=== PATIENT | female | born 1940 | race Caucasian/White ===

== ENCOUNTER 2016-05-01 20:53 | Observation (INO) ==
[2016-05-01 22:23] LABS: Basophils % 0.5 %; Eosinophils # 0.1 K/mcL (0.0-0.6); Eosinophils % 1.8 %; Hematocrit 36.4 % (35.3-44.9); Hemoglobin 12.1 g/dL (11.5-15.4); Immature Granulocytes % 0.5 % (0-4); Lymphocytes # 1.9 K/mcL (0.6-4.6); Lymphocytes % 29.1 %; Mean Corpuscular HGB Conc 33.2 g/dL (31.6-35.5); Mean Corpuscular Hemoglobin 28.5 pg (28.0-33.3); Mean Corpuscular Volume 85.8 fL (83.0-100.0); Mean Platelet Volume 9.3 fL (9.4-12.4); Monocytes # 0.5 K/mcL (0.0-1.3); Monocytes % 7.1 %; Neutrophils # 4.1 K/mcL (1.6-8.9); Platelet Count 169 K/mcL (140-400); Red Blood Count 4.24 M/mcL (3.82-4.97); Red Cell Distribution Width 13.2 % (11.5-14.5)
[2016-05-01 22:28] LABS: Prothrombin Time 10.9 Seconds (9.4-12.1)
[2016-05-01 22:30] LABS: Activated Partial Thrombo Time 33.9 Seconds (26.0-36.0)
[2016-05-01 22:35] LABS: BUN/Creatinine Ratio 13 (6-26); Blood Urea Nitrogen 11 mg/dL (7-20); Calcium 9.2 mg/dL (8.6-10.8); Carbon Dioxide 26 mEq/L (19-29); Chloride 103 mEq/L (98-109); Glucose 110 mg/dL (70-99); Osmolality,Calculated 290 (280-300); Potassium 3.4 mEq/L (3.5-4.5); Sodium 140 mEq/L (136-145); eGFR For African Americans > 60 (> 60); eGFR For Non-African Americans > 60 (> 60)
[2016-05-01] MEDS ORDERED: Nitroglycerin 1 INCH/GM PACKET TP ONE (22:39)
[2016-05-01] MEDS ORDERED: Aspirin 81 MG TAB.CHEW PO STA (22:39)
--- NOTE | 2016-05-02 00:34 | Emergency Department Note ---
Disposition Clinical Impression: Palpitations Disposition: Admitted As Inpatient Condition: Good Referrals: Roopa Lambert CNP [Primary Care Provider] - Forms: ED Satisfaction Letter Chest Pain HPI - General Chief Complaint: ED Chest Pain Stated Complaint: Chest Pain, DAVEY Source: patient Limitations: no limitations Vital Signs Reviewed: Yes Nursing Notes Reviewed: Yes - History of Present Illness HPI Narrative: 75-year-old female with a history of paroxysmal A. fib who presents with concern for chest palpitations for approximately 1 day. Symptoms are not exertionally mediated. She has no current chest pain. Of note in triage was found have a abnormal EKG with mild ST segment depression in the V leads. She denies nausea, vomiting, dyspnea, admits to baseline leg swelling. Severity scale (1-10): 0 - Related Data Home Medications Medication Instructions Recorded Confirmed Aspirin [Adult Low Dose Aspirin EC] 81 mg PO DAILY 06/03/15 02/04/16 Cholecalciferol (Vitamin D3) 1,000 unit PO DAILY 06/03/15 02/04/16 [Vitamin D3] Fluticasone Propionate Nasal 1 spray NS BID 06/03/15 02/04/16 [Flonase] Furosemide [Lasix] 20 mg PO DAILY 06/03/15 02/04/16 Losartan Potassium [Cozaar] 50 mg PO DAILY 06/03/15 02/04/16 Omeprazole [PriLOSEC] 20 mg PO DAILY 06/03/15 02/04/16 Vitamin E Acid Succinate [Vitamin 100 unit PO DAILY 06/03/15 02/04/16 E] Loratadine [Claritin] 10 mg PO DAILY 01/04/16 02/04/16 Fish Oil/Dha/Epa [Fish Oil 1,200 1,200 mg PO BID 01/05/16 02/04/16 mg Fish Oil] EPINEPHrine [Epipen] 0.3 mg IM ONCE PRN 02/04/16 02/04/16 Allergies Allergy/AdvReac Type Severity Reaction Status Date / Time acetaminophen [From Vicodin] Allergy See Verified 05/01/16 21:00 Comments Amoxicillin Allergy Abdominal Verified 05/01/16 21:00 Pain Benzonatate Allergy See Verified 05/01/16 21:00 [From Tessalon Perlkitty] Comments ciprofloxacin Allergy See Verified 05/01/16 21:00 Comments hydrocodone [From Vicodin] Allergy See Verified 05/01/16 21:00 Comments mometasone furoate Allergy Nose Bleed Verified 05/01/16 21:00 [From Nasonex] nitrofurantoin Allergy See Verified 05/01/16 21:00 Comments Oxycodone [From Percocet] Allergy See Verified 05/01/16 21:00 Comments Penicillins Allergy See Verified 05/01/16 21:00 Comments sulfamethoxazole Allergy See Verified 05/01/16 21:00 [From Bactrim] Comments trimethoprim [From Bactrim] Allergy See Verified 05/01/16 21:00 Comments cetirizine AdvReac Insomnia Verified 05/01/16 21:00 dextromethorphan AdvReac Rash Verified 05/01/16 21:00 [From Capmist DM] doxycycline AdvReac Redness of Verified 05/01/16 21:00 Skin guaifenesin [From Capmist DM] AdvReac Rash Verified 05/01/16 21:00 meloxicam AdvReac Muscle Pain Verified 05/01/16 21:00 pravastatin AdvReac See Verified 05/01/16 21:00 Comments pseudoephedrine AdvReac Rash Verified 05/01/16 21:00 [From Capmist DM] All systems ED: reviewed and negative except as stated. Chest Pain PMH - Past Medical History Medical history: Reports: arthritis, GERD, glaucoma, hyperlipidemia, hypertension, osteoporosis, renal disease, other Surgical history: Reports: appendectomy, cataract, hysterectomy Psychiatric history: Reports: no psych history FINANCIAL PLANNER history: Reports: no FINANCIAL PLANNER history - Social History Smoking Status: Former smoker Alcohol use: Reports: none Drug use: Reports: none Physical Exam - General Limitations: no limitations General appearance: alert - Eye Eye exam: Present: normal appearance - ENT ENT exam: normal exam - Neck Neck exam: Present: normal inspection, full ROM - Chest Chest inspection: Present: normal inspection - Respiratory Respiratory exam: Present: normal lung sounds bilaterally - Cardiovascular Cardiovascular exam: Present: regular rate, normal rhythm - Abdominal Exam Abdominal exam: Present: soft, Non-Tender - Extremities Exam Extremities exam: Present: normal inspection, full ROM - Expanded Lower Extremity Exam Hip/Pelvis exam: Present: normal inspection, full ROM Knee exam: Present: normal inspection, full ROM Ankle exam: Present: normal inspection, full ROM Foot/toe exam: Present: normal inspection, full ROM Neurovascular/Tendon exam: Present: normal capillary refill, pulse deficit - Back Exam Back exam: Present: normal inspection, full ROM - Neurological Exam Neurological exam: Present: alert, oriented X3, CN II-XII intact - Psychiatric Psychiatric exam: Present: normal affect, normal mood - Skin Skin exam: Present: warm, dry Course Vital Signs Temperature 97.5 F L 05/01/16 21:00 Pulse Rate 74 05/01/16 21:00 Respiratory Rate 20 05/01/16 21:00 Blood Pressure 138/77 05/01/16 21:00 O2 Sat by Pulse Oximetry 99 05/01/16 21:00 Temperature 97.5 F L 05/01/16 21:00 Pulse Rate 63 05/01/16 23:57 Respiratory Rate 16 05/01/16 22:29 Blood Pressure 125/85 05/01/16 23:57 O2 Sat by Pulse Oximetry 99 05/01/16 23:57 Oxygen Delivery Oxygen Delivery Room Air Chest Pain - MDM Narrative Medical decision making narrative: Female patient with possible paroxysmal A. fib which could explain why she is having this intermittent complaint of palpitations. Cannot rule out ACS though. EKG shows ST segment changes in the anterolateral leads. I have repeated the EKG twice. Her EKG shows sinus rhythm with no significant interval derangement. There is ST segment depression in leads V4 and V5. This is consistent upon repeat EKG. There is no ST segment elevation. Aspirin was administered. Nitroglycerin paste was applied. She was found to be mild hypokalemic and this was replaced with 60 mEq of potassium at the request of the hospitalist team. She is currently symptom free. Chest x-ray shows no acute findings. We will proceed with admission for ACS rule out in the setting of possible paroxysmal A. fib. She does follow with cardiology team. - Lab Data Result diagrams: 05/01/16 22:16 05/01/16 22:16 Lab Results 05/01/16 05/01/16 05/01/16 Range/Units 22:16 22:16 22:16 WBC 6.7 (4.3-11.1) K/mcL RBC 4.24 (3.82-4.97) M/mcL Hgb 12.1 (11.5-15.4) g/dL Hct 36.4 (35.3-44.9) % MCV 85.8 (83.0-100.0) fL MCH 28.5 (28.0-33.3) pg MCHC 33.2 (31.6-35.5) g/dL RDW 13.2 (11.5-14.5) % Plt Count 169 (140-400) K/mcL MPV 9.3 L (9.4-12.4) fL Immature Gran % 0.5 (0-4) % Seg Neutrophils % 61.0 % Lymphocytes % 29.1 % Monocytes % 7.1 % Eosinophils % 1.8 % Basophils % 0.5 % Neutrophils # 4.1 (1.6-8.9) K/mcL Lymphocytes # 1.9 (0.6-4.6) K/mcL Monocytes # 0.5 (0.0-1.3) K/mcL Eosinophils # 0.1 (0.0-0.6) K/mcL Basophils # 0.0 (0.0-0.2) K/mcL Immature Plt Fraction 3.0 (1.1-6.1) % PT 10.9 (9.4-12.1) Seconds INR 1.0 APTT 33.9 (26.0-36.0) Seconds Sodium 140 (136-145) mEq/L Potassium 3.4 L (3.5-4.5) mEq/L Chloride 103 (98-109) mEq/L Carbon Dioxide 26 (19-29) mEq/L BUN 11 (7-20) mg/dL Creatinine 0.85 (0.57-1.11) mg/dL Est GFR ( Amer) > 60 (> 60) Est GFR (Non-Af Amer) > 60 (> 60) BUN/Creatinine Ratio 13 (6-26) Glucose 110 H (70-99) mg/dL Calculated Osmolality 290 (280-300) Calcium 9.2 (8.6-10.8) mg/dL Troponin I (0-0.03) ng/mL B-Natriuretic Peptide (0-100) pg/mL 05/01/16 05/01/16 Range/Units 22:16 22:16 WBC (4.3-11.1) K/mcL RBC (3.82-4.97) M/mcL Hgb (11.5-15.4) g/dL Hct (35.3-44.9) % MCV (83.0-100.0) fL MCH (28.0-33.3) pg MCHC (31.6-35.5) g/dL RDW (11.5-14.5) % Plt Count (140-400) K/mcL MPV (9.4-12.4) fL Immature Gran % (0-4) % Seg Neutrophils % % Lymphocytes % % Monocytes % % Eosinophils % % Basophils % % Neutrophils # (1.6-8.9) K/mcL Lymphocytes # (0.6-4.6) K/mcL Monocytes # (0.0-1.3) K/mcL Eosinophils # (0.0-0.6) K/mcL Basophils # (0.0-0.2) K/mcL Immature Plt Fraction (1.1-6.1) % PT (9.4-12.1) Seconds INR APTT (26.0-36.0) Seconds Sodium (136-145) mEq/L Potassium (3.5-4.5) mEq/L Chloride (98-109) mEq/L Carbon Dioxide (19-29) mEq/L BUN (7-20) mg/dL Creatinine (0.57-1.11) mg/dL Est GFR ( Amer) (> 60) Est GFR (Non-Af Amer) (> 60) BUN/Creatinine Ratio (6-26) Glucose (70-99) mg/dL Calculated Osmolality (280-300) Calcium (8.6-10.8) mg/dL Troponin I 0.00 (0-0.03) ng/mL B-Natriuretic Peptide 23 (0-100) pg/mL
[2016-05-02] MEDS ORDERED: Naloxone 0.4 MG/ML INJ IVP PRN (04:33)
--- NOTE | 2016-05-02 05:00 | Internal Med History&Physical ---
<Beatriz Roberts - Last Filed: 05/02/16 05:29> Date of Encounter: 05/02/16 Time of Encounter: 04:43 Assessment and Plan (1) Palpitations Current visit: Yes Status: Acute telemetry trend troponins check TSH consult cardiology (2) History of atrial fibrillation Current visit: Yes Status: Acute Internal Medicine - H&P: HPI Chief complaint: heart racing, CP Admitted From: Emergency Dept Plans for Post Hospital Care: Home History of present illness: Ms. Keyes is a 75 year old female diagnosed with paroxysmal atrial fibrillation in January during a hospitalization for cholecystectomy. She had one episode of asymptomatic atrial fibrillation and self-converted during that hospitalization. Sinc that hospitalization, she has had extensive cardiology work-up including stress test, echo, and holter monitor. Stress EKG negative for ischemia, images demonstrated partially reversible inferior and inferoseptal perfusion defect. Blanket Winder Operator suspects artifact but cannot rule out ischemia. Echo showed EF 60%, normal systolic function, and mild diastolic dysfunction of the LV. Holter monitor showed baseline NSR, rare PACs and PVCs, several episodes of nonsustained SVT, no ventricular arrhythmias, no pauses; during pt reported symptoms rhythm is normal sinus. She has an appointment in the future to discuss her stress test results with her PCP, but has been having multiple episodes of sweating, heart racing, and chest pain for the past week and was advised by her PCP to go to the ER if she had another episode. This evening she was sitting on the couch when she had an episode of feeling like her heart was racing and chest pain. She came to the ER to get checked out. Past Med Surg Social Fam HX - Past Medical History Medical history: arthritis, GERD, glaucoma, hyperlipidemia, hypertension, osteoporosis, renal disease, other (hx of CKD, OA) Psychiatric history: no psych history - Past Surgical History Surgical History: appendectomy, cataract, cholecystectomy, hysterectomy - Social History Smoking Status: Former smoker Smokeless Tobacco Status: No Alcohol use: none Drug use: none - Family History Brother Hx Family Cardiac Disorders: Yes Sister Living Status: Still Living Hx Family Cardiac Disorders: Yes Hx Family Respiratory Disorders: Yes (COPD) Hx Family Cancer: No Hx Family GI Disorders: Yes (GERD) Hx Family Endocrine Disorder: Yes Hx Family Neuromuscular Disorders: No Hx Family Neurologic Disorders: No Hx Family HEENT Disorders: No Hx Family Autoimmune Disorders: No Mother Living Status: Hx Family Cardiac Disorders: No Hx Family Respiratory Disorders: No Hx Family Cancer: No Hx Family GI Disorders: No Hx Family Endocrine Disorder: No Hx Family Neuromuscular Disorders: No Hx Family Neurologic Disorders: No Hx Family HEENT Disorders: No Hx Family Autoimmune Disorders: No Father Living Status: Hx Family Cardiac Disorders: No Hx Family Respiratory Disorders: No Hx Family Cancer: No Hx Family GI Disorders: No Hx Family Endocrine Disorder: No Hx Family Neuromuscular Disorders: No Hx Family Neurologic Disorders: No Hx Family HEENT Disorders: No Hx Family Autoimmune Disorders: No Internal Medicine - H&P: Meds Aspirin [Adult Low Dose Aspirin EC] 81 mg PO DAILY 06/03/15 [History] Cholecalciferol (Vitamin D3) [Vitamin D3] 1,000 unit PO DAILY 06/03/15 [History] Fluticasone Propionate Nasal [Flonase] 1 spray NS BID 06/03/15 [History] Furosemide [Lasix] 20 mg PO DAILY 06/03/15 [History] Losartan Potassium [Cozaar] 50 mg PO DAILY 06/03/15 [History] Omeprazole [PriLOSEC] 20 mg PO DAILY 06/03/15 [History] Loratadine [Claritin] 10 mg PO DAILY 01/04/16 [History] Fish Oil/Dha/Epa [Fish Oil 1,200 mg Fish Oil] 1,200 mg PO BID 01/05/16 [History] EPINEPHrine [Epipen] 0.3 mg IM ONCE PRN 02/04/16 [History] Albuterol Sulfate [Ventolin Hfa] 2 puff IH Q4H PRN 05/02/16 [History] Ascorbic Acid [Vitamin C] 500 mg PO DAILY 05/02/16 [History] Vitamin E 100 unit PO DAILY 05/02/16 [History] Allergies acetaminophen [From Vicodin] Allergy (Verified 05/01/16 21:00) See Comments Amoxicillin Allergy (Verified 05/01/16 21:00) Abdominal Pain Benzonatate [From Tessalon Perles] Allergy (Verified 05/01/16 21:00) See Comments ciprofloxacin Allergy (Verified 05/01/16 21:00) See Comments hydrocodone [From Vicodin] Allergy (Verified 05/01/16 21:00) See Comments mometasone furoate [From Nasonex] Allergy (Verified 05/01/16 21:00) Nose Bleed nitrofurantoin Allergy (Verified 05/01/16 21:00) See Comments Oxycodone [From Percocet] Allergy (Verified 05/01/16 21:00) See Comments Penicillins Allergy (Verified 05/01/16 21:00) See Comments sulfamethoxazole [From Bactrim] Allergy (Verified 05/01/16 21:00) See Comments trimethoprim [From Bactrim] Allergy (Verified 05/01/16 21:00) See Comments cetirizine Adverse Reaction (Verified 05/01/16 21:00) Insomnia dextromethorphan [From Capmist DM] Adverse Reaction (Verified 05/01/16 21:00) Rash doxycycline Adverse Reaction (Verified 05/01/16 21:00) Redness of Skin guaifenesin [From Capmist DM] Adverse Reaction (Verified 05/01/16 21:00) Rash meloxicam Adverse Reaction (Verified 05/01/16 21:00) Muscle Pain pravastatin Adverse Reaction (Verified 05/01/16 21:00) See Comments pseudoephedrine [From Capmist DM] Adverse Reaction (Verified 05/01/16 21:00) Rash All Systems PM: A 10-system review of systems was performed and is negative for pertinent findings except as documented above in the HPI. - Constitutional Constitutional: excessive sweating, no chills, no fever(s), no night sweats - EENT Eyes: no change in vision, no discharge, no pain, no photophobia Ears: no ear discharge, no ear pain, no tinnitus Nose, mouth and throat: no dysphagia, no nasal discharge, no neck pain, no sore throat - Cardiovascular Cardiovascular ROS IM: chest pain, irregular heart rhythm, palpitations, no diaphoresis, no dyspnea, no lightheadedness, no syncope - Respiratory Respiratory: no cough, no dyspnea, no wheezing, no excessive phlegm production - Gastrointestinal Gastrointestinal: nausea, no abdominal pain, no change in bowel habits, no diarrhea, no hematemesis, no hematochezia, no melena, no vomiting - Genitourinary Genitourinary: no change in urinary stream, no dysuria, no flank pain, no hematuria, no urinary frequency, no urinary urgency - Musculoskeletal Musculoskeletal ROS IM: no arthralgias, no muscle cramps, no muscle weakness, no myalgias, no numbness, no tingling - Integumentary Integumentary IM: no rash, no unusual bruising - Neurological Neurological ROS: dizziness, no confusion, no convulsions, no focal weakness, no numbness, no tingling, no tremor(s) - Hematologic/Lymphatic Hematologic/Lymphatic: no easy bruising - Constitutional Vitals: Temp Pulse Resp BP Pulse Ox 97.8 F 65 16 129/75 98 05/02/16 01:57 05/02/16 01:57 05/02/16 01:57 05/02/16 01:57 05/02/16 01:57 General appearance: Present: A&O X 3, no acute distress, answers questions appropriately - Head Head exam: Present: atraumatic, normocephalic - Eye Eye exam: Present: PERRL, conjuntiva pink, sclera anicteric Pupils: Present: PERRL - Neck Neck exam general surgery: Present: supple, trachea midline. Absent: lymphadenopathy - Respiratory Respiratory exam: Present: CTAB. Absent: accessory muscle use, rales, rhonchi, wheezes - Cardiovascular Cardiovascular exam: Present: RRR, +S1, +S2. Absent: diastolic murmur, gallop, rubs, systolic murmur - GI/Abdominal GI/Abdominal exam: Present: normal bowel sounds, soft, no peritoneal signs. Absent: distended, tenderness - Extremities Exam Extremities exam: Present: warm, radial pulses palpable and symetrical. Absent : calf tenderness, cyanotic, pedal edema - Neurological Exam Neurological exam: Present: CN II-XII intact, oriented X3, no focal deficits. Absent: pronater drift, facial droop, speech deficit - Skin Skin exam: Present: dry, intact Internal Med - H&P Results - Labs CBC & Chem 7: 05/01/16 22:16 05/01/16 22:16 <Leonardo Alcantara - Last Filed: 05/02/16 06:32> Date of Encounter: 05/02/16 - Cardiovascular Cardiovascular ROS IM: chest pain, irregular heart rhythm, palpitations - Respiratory Respiratory: no dyspnea, no wheezing - Constitutional Vitals: Temp Pulse Resp BP Pulse Ox 97.8 F 65 16 129/75 98 05/02/16 01:57 05/02/16 01:57 05/02/16 01:57 05/02/16 01:57 05/02/16 01:57 General appearance: Present: cooperative, A&O X 3, pleasant, no acute distress - Head Head exam: Present: atraumatic, normal inspection - Eye Eye exam: Present: EOMI, PERRL. Absent: scleral icterus - ENT ENT exam: Present: mucous membranes dry, normal exam - Neck Neck exam general surgery: Present: full ROM. Absent: tenderness - Expanded Neck Exam Neck exam: Absent: carotid bruit - Respiratory Respiratory exam: Present: CTAB - Cardiovascular Cardiovascular exam: Present: RRR, +S1, +S2 - GI/Abdominal GI/Abdominal exam: Present: soft. Absent: hepatomegaly, splenomegaly, tenderness - Extremities Exam Extremities exam: Present: warm. Absent: calf tenderness Internal Med - H&P Results - Labs CBC & Chem 7: 05/01/16 22:16 05/01/16 22:16 - EKG Data -: EKG Interpreted by Myself EKG shows normal: sinus rhythm - EKG Data Prior EKG available for review: no EKG comments: 05/02/16 06:27 Sinus rhythm; subtle ST-T depression suggesting ischemia - Diagnostic Studies Chest x-ray Status: image reviewed by me (negative) - Attending Attestation I discussed the pt [facility], PMH, ROS, lab data, and exam findings with Dr. Roberts. I then saw and examined patient independently as well. Pt does confirm the history of chest pain yesterday and recently. Her EKG is a little concerning for some ST-T depression. She already has had extensive work-up with regards to paroxysmal atrial fibrillation. On my exam, she has no concerning findings. I agree with Dr. Roberts's plan for minimal work-up, as she recently had extensive work-up. However, based upon her symptoms and EKG findings, I favor cardiology consult and likely LHC. I defer to cardiology , however. Other than my comments above and noted exam findings, I agree with Dr. Skip chawla's assessment and plan.
--- NOTE | 2016-05-02 08:35 | Cardiology Consult Note ---
Date of Encounter: 05/02/16 Time of Encounter: 08:33 Assessment and Plan Discussion w patient/family: The assessment and plan as outlined above was discussed with the patient and/or family members who expressed understanding and agreement. All questions were answered. Thank you for involving us in the care of your patient. Please call with any questions. Would start Metoprolol 25 bid (not seen on allergy list) ASA Will arrange for a cath on Wednesday Pt can go home and come back for this Pt is agreeable d/w Dr. Herrera Thanks History of Present Illness History of present illness: Ms. Keyes is a 75 year old female diagnosed with paroxysmal atrial fibrillation in January during a hospitalization for cholecystectomy. She had one episode of asymptomatic atrial fibrillation and self-converted during that hospitalization. Sinc that hospitalization, she has had extensive cardiology work-up including stress test, echo, and holter monitor. Stress EKG negative for ischemia, images demonstrated partially reversible inferior and inferoseptal perfusion defect. Hogshead Filler suspects artifact but cannot rule out ischemia. Echo showed EF 60%, normal systolic function, and mild diastolic dysfunction of the LV. Holter monitor showed baseline NSR, rare PACs and PVCs, several episodes of nonsustained SVT, no ventricular arrhythmias, no pauses; during pt reported symptoms rhythm is normal sinus. She has an appointment in the future to discuss her stress test results with her PCP, but has been having multiple episodes of sweating, heart racing, and chest pain for the past week and was advised by her PCP to go to the ER if she had another episode. This evening she was sitting on the couch when she had an episode of feeling like her heart was racing and chest pain. She came to the ER to get checked out Pain is central occ radiating to left arm no diaphoresis, sob Past Med Surg Social Fam HX - Past Medical History Medical history: arthritis, GERD, glaucoma, hyperlipidemia, hypertension, osteoporosis, renal disease, other (hx of CKD, OA) Psychiatric history: no psych history - Past Surgical History Surgical History: appendectomy, cataract, cholecystectomy, hysterectomy - Social History Smoking Status: Former smoker Smokeless Tobacco Status: No Alcohol use: none Drug use: none - Family History Brother Hx Family Cardiac Disorders: Yes Sister Living Status: Still Living Hx Family Cardiac Disorders: Yes Hx Family Respiratory Disorders: Yes (COPD) Hx Family Cancer: No Hx Family GI Disorders: Yes (GERD) Hx Family Endocrine Disorder: Yes Hx Family Neuromuscular Disorders: No Hx Family Neurologic Disorders: No Hx Family HEENT Disorders: No Hx Family Autoimmune Disorders: No Mother Living Status: Hx Family Cardiac Disorders: No Hx Family Respiratory Disorders: No Hx Family Cancer: No Hx Family GI Disorders: No Hx Family Endocrine Disorder: No Hx Family Neuromuscular Disorders: No Hx Family Neurologic Disorders: No Hx Family HEENT Disorders: No Hx Family Autoimmune Disorders: No Father Living Status: Hx Family Cardiac Disorders: No Hx Family Respiratory Disorders: No Hx Family Cancer: No Hx Family GI Disorders: No Hx Family Endocrine Disorder: No Hx Family Neuromuscular Disorders: No Hx Family Neurologic Disorders: No Hx Family HEENT Disorders: No Hx Family Autoimmune Disorders: No Medications and Allergies Aspirin [Adult Low Dose Aspirin EC] 81 mg PO DAILY 06/03/15 [History] Cholecalciferol (Vitamin D3) [Vitamin D3] 1,000 unit PO DAILY 06/03/15 [History] Fluticasone Propionate Nasal [Flonase] 1 spray NS BID 06/03/15 [History] Furosemide [Lasix] 20 mg PO DAILY 06/03/15 [History] Losartan Potassium [Cozaar] 50 mg PO DAILY 06/03/15 [History] Omeprazole [PriLOSEC] 20 mg PO DAILY 06/03/15 [History] Loratadine [Claritin] 10 mg PO DAILY 01/04/16 [History] Fish Oil/Dha/Epa [Fish Oil 1,200 mg Fish Oil] 1,200 mg PO BID 01/05/16 [History] EPINEPHrine [Epipen] 0.3 mg IM ONCE PRN 02/04/16 [History] Albuterol Sulfate [Ventolin Hfa] 2 puff IH Q4H PRN 05/02/16 [History] Ascorbic Acid [Vitamin C] 500 mg PO DAILY 05/02/16 [History] Vitamin E 100 unit PO DAILY 05/02/16 [History] Allergies acetaminophen [From Vicodin] Allergy (Verified 05/01/16 21:00) See Comments Amoxicillin Allergy (Verified 05/01/16 21:00) Abdominal Pain Benzonatate [From Tessalon Perles] Allergy (Verified 05/01/16 21:00) See Comments ciprofloxacin Allergy (Verified 05/01/16 21:00) See Comments hydrocodone [From Vicodin] Allergy (Verified 05/01/16 21:00) See Comments mometasone furoate [From Nasonex] Allergy (Verified 05/01/16 21:00) Nose Bleed nitrofurantoin Allergy (Verified 05/01/16 21:00) See Comments Oxycodone [From Percocet] Allergy (Verified 05/01/16 21:00) See Comments Penicillins Allergy (Verified 05/01/16 21:00) See Comments sulfamethoxazole [From Bactrim] Allergy (Verified 05/01/16 21:00) See Comments trimethoprim [From Bactrim] Allergy (Verified 05/01/16 21:00) See Comments cetirizine Adverse Reaction (Verified 05/01/16 21:00) Insomnia dextromethorphan [From Capmist DM] Adverse Reaction (Verified 05/01/16 21:00) Rash doxycycline Adverse Reaction (Verified 05/01/16 21:00) Redness of Skin guaifenesin [From Capmist DM] Adverse Reaction (Verified 05/01/16 21:00) Rash meloxicam Adverse Reaction (Verified 05/01/16 21:00) Muscle Pain pravastatin Adverse Reaction (Verified 05/01/16 21:00) See Comments pseudoephedrine [From Capmist DM] Adverse Reaction (Verified 05/01/16 21:00) Rash All Systems Review: A 10-system review of systems was performed and is negative for pertinent findings except as documented above in the HPI. Physical Examination Vital Signs, Last 4 Hours Temp Pulse Resp BP Pulse Ox 05/02/16 06:31 98.1 F 64 20 120/70 96 Results 05/01/16 22:16 05/01/16 22:16 Consult Discharge Plan - Plan Referrals: Roopa Lambert, [employer] [Primary Care Provider] -
[2016-05-02] MEDS ORDERED: Loratadine 10 MG TABLET PO SCH (09:00)
[2016-05-02] MEDS ORDERED: Fluticasone Propionate Nasal 50 MCG/SPRAY BOTTLE NS SCH (09:00)
[2016-05-02] MEDS ORDERED: Furosemide 20 MG TABLET PO SCH (09:00)
[2016-05-02] MEDS ORDERED: Aspirin Enteric Coated 81 MG Tablet PO SCH (09:00)
[2016-05-02 09:14] LABS: Magnesium 1.9 mg/dL (1.6-2.6)
[2016-05-02 09:19] LABS: BUN/Creatinine Ratio 13 (6-26); Blood Urea Nitrogen 10 mg/dL (7-20); Calcium 9.5 mg/dL (8.6-10.8); Carbon Dioxide 27 mEq/L (19-29); Chloride 105 mEq/L (98-109); Glucose 104 mg/dL (70-99); Osmolality,Calculated 289 (280-300); Potassium 4.2 mEq/L (3.5-4.5); Sodium 140 mEq/L (136-145); eGFR For African Americans > 60 (> 60); eGFR For Non-African Americans > 60 (> 60)
[2016-05-02 09:42] LABS: Thyroid Stimulating Hormone 1.894 mcIU/mL (0.350-4.840)
--- NOTE | 2016-05-02 10:38 | Discharge Summary ---
Date of Encounter: 05/02/16 Time of Encounter: 10:30 - Discharge Diagnosis (1) Palpitations Priority: Primary Status: Acute (2) History of atrial fibrillation Priority: Secondary Status: Chronic (3) Dyslipidemia Priority: Secondary Status: Chronic (4) Hypertension Priority: Secondary Status: Chronic Qualifiers: Hypertension type: essential hypertension Qualified Code(s): I10 - Essential (primary) hypertension - Discharge Medications Prescriptions: Metoprolol [Lopressor] 12.5 mg PO BID #30 tablet Home Medications: Aspirin [Adult Low Dose Aspirin EC] 81 mg PO DAILY 06/03/15 [History] Cholecalciferol (Vitamin D3) [Vitamin D3] 1,000 unit PO DAILY 06/03/15 [History] Fluticasone Propionate Nasal [Flonase] 1 spray NS BID 06/03/15 [History] Omeprazole [PriLOSEC] 20 mg PO DAILY 06/03/15 [History] Loratadine [Claritin] 10 mg PO DAILY 01/04/16 [History] Fish Oil/Dha/Epa [Fish Oil 1,200 mg Fish Oil] 1,200 mg PO BID 01/05/16 [History] EPINEPHrine [Epipen] 0.3 mg IM ONCE PRN 02/04/16 [History] Albuterol Sulfate [Ventolin Hfa] 2 puff IH Q4H PRN 05/02/16 [History] Ascorbic Acid [Vitamin C] 500 mg PO DAILY 05/02/16 [History] Furosemide [Lasix] 20 mg PO DAILY tablet 05/02/16 [Rx] Losartan Potassium [Cozaar] 25 mg PO DAILY #0 05/02/16 [Rx] Metoprolol [Lopressor] 12.5 mg PO BID #30 tablet 05/02/16 [Rx] Vitamin E 100 unit PO DAILY 05/02/16 [History] Allergies/Adverse Reactions: Allergies acetaminophen [From Vicodin] Allergy (Verified 05/01/16 21:00) See Comments Amoxicillin Allergy (Verified 05/01/16 21:00) Abdominal Pain Benzonatate [From Tessalon Perles] Allergy (Verified 05/01/16 21:00) See Comments ciprofloxacin Allergy (Verified 05/01/16 21:00) See Comments hydrocodone [From Vicodin] Allergy (Verified 05/01/16 21:00) See Comments mometasone furoate [From Nasonex] Allergy (Verified 05/01/16 21:00) Nose Bleed nitrofurantoin Allergy (Verified 05/01/16 21:00) See Comments Oxycodone [From Percocet] Allergy (Verified 05/01/16 21:00) See Comments Penicillins Allergy (Verified 05/01/16 21:00) See Comments sulfamethoxazole [From Bactrim] Allergy (Verified 05/01/16 21:00) See Comments trimethoprim [From Bactrim] Allergy (Verified 05/01/16 21:00) See Comments cetirizine Adverse Reaction (Verified 05/01/16 21:00) Insomnia dextromethorphan [From Capmist DM] Adverse Reaction (Verified 05/01/16 21:00) Rash doxycycline Adverse Reaction (Verified 05/01/16 21:00) Redness of Skin guaifenesin [From Capmist DM] Adverse Reaction (Verified 05/01/16 21:00) Rash meloxicam Adverse Reaction (Verified 05/01/16 21:00) Muscle Pain pravastatin Adverse Reaction (Verified 05/01/16 21:00) See Comments pseudoephedrine [From Capmist DM] Adverse Reaction (Verified 05/01/16 21:00) Rash Date of admission: 05/02/16 00:38 Primary care physician: Roopa Lambert CNP Consults: 05/02/16 05:13 Consult to Cardiology [CONS] Routine Comment: Consulting Provider: Cardiology Danielle Reason for Consult: heart racing, CP Call Completed: No - Patient Status Disposition: Home, Self-Care Condition: Good Functional capacity at discharge: independent ambulation Overall status at discharge: patient is progressing back to baseline - Discharge Instructions Instructions: Metoprolol (By mouth) Follow Up With: Roopa Lambert CNP [Primary Care Provider] - (Your appt has been web requested. The office will be calling you Wednesday for a follow up appt.) Vernon Harper [Non-Partnered Physician] - (Call the office first thing on Wednesday.) Additional Instructions: check blood pressure daily. follow a strict low salt and low cholesterol diet. - Diet and Activity Activity: resume usual activities as tolerated Diet: low fat, low cholesterol, low salt diet Interval History: pt has no complaints. she is eager to go home. Hospital course: Ms. Keyes is a 75 year old female with past medical history of hypertension,CKD, recently diagnosed with paroxysmal atrial fibrillation in January 2016. He has been seen in the cardiology clinic and had I stress test, echocardiogram, and Holter monitor. Patient percent with palpitations. The patient cardiology input, patient was started on Lopressor 12.5 twice a day and she will undergo left catheterization this coming May 04. At discharge, patient was asymptomatic, ambulating and eating well. Stress EKG negative for ischemia, images demonstrated partially reversible inferior and inferoseptal perfusion defect. Bore Miner Operator suspects artifact but cannot rule out ischemia. Echo showed EF 60%, normal systolic function, and mild diastolic dysfunction of the LV. Holter monitor showed baseline NSR, rare PACs and PVCs, several episodes of nonsustained SVT, no ventricular arrhythmias, no pauses; during pt reported symptoms rhythm is normal sinus. Plan: Cardiology to schedule a cardiac consult on Thursday 05/04. - Time Spent with Patient Total time spent providing and/or coordinating discharge services: - Constitutional Vitals: Temp Pulse Resp BP Pulse Ox 98.1 F 64 20 120/70 96 05/02/16 06:31 05/02/16 06:31 05/02/16 06:31 05/02/16 06:31 05/02/16 06:31 General appearance: Present: cooperative, A&O X 3, pleasant, no acute distress - Eye Eye exam: Present: PERRL, sclera anicteric - Neck Neck exam general surgery: Present: supple, trachea midline. Absent: lymphadenopathy - Respiratory Respiratory exam: Present: CTAB. Absent: wheezes - Cardiovascular Cardiovascular exam: Present: RRR - GI/Abdominal GI/Abdominal exam: Present: normal bowel sounds, soft. Absent: distended, tenderness - Extremities Exam Extremities exam: Present: pedal edema - Back Exam Back exam: Absent: CVA tenderness (L), CVA tenderness (R) - Neurological Exam Neurological exam: Present: alert, oriented X3. Absent: facial droop, speech deficit - Skin Skin exam: Present: dry. Absent: rash
[2016-05-02 10:57] VITALS: BP 145/76
--- NOTE | 2016-05-04 06:56 | Electrocardiograph Report ---
[place] [id number] Test Date: 2016-05-01 Pat Name: Selam Keyes Department: 104 Room: 3B Gender: F Procurement Coordinator: : 1940 Requested By: Zane Vieira Order Number: [id number] Reading MD: Haim Ramos MD Measurements Intervals [place] Rate: 74 P: 1 SC: 160 QRS: 26 QRSD: 100 T: 61 QT: 372 QTc: 399 Interpretive Statements SINUS RHYTHM Electronically Signed On 05-04-2016 6:54:44 EST by Haim Ramos MD
== END 2016-05-02 11:13 | disposition home or self-care (01) ==
LOC: 3BNU 20:53 → EMEROO 20:53 → 3BNU 05-02 01:16
PROVIDERS: ADMIT Pediatrics; ATTEND Nurse Practitioner Family

== ENCOUNTER 2016-10-30 14:54 | Observation (INO) ==
--- NOTE | 2016-10-30 15:34 | Emergency Department Note ---
Disposition Clinical Impression: Chest pain Qualifiers: Chest pain type: unspecified Qualified Code(s): R07.9 - Chest pain, unspecified Disposition: Admitted As Inpatient Condition: Fair Time of Disposition: 18:06 Chest Pain HPI - General Chief Complaint: ED Chest Pain Stated Complaint: Chest pain Time Seen by Provider: 10/30/16 15:19 Source: patient, family Limitations: no limitations Vital Signs Reviewed: Yes Nursing Notes Reviewed: Yes - History of Present Illness HPI Narrative: Patient is a 76-year-old female who presents to [facility] ED with a chief complaint of chest pain. States she was just admitted last week and had a full workup done. They were unsure what was causing her pain. She has a heart catheterization scheduled for this next Wednesday. States she has felt intermittently short of breath as well as pains radiating into her arm. Admits to some nausea as well as breaking out in a sweat. No abdominal pain. No problems with urination or bowel movements. Pain is described as a pressure and ache that sends sharp pains into her left chest at times. Past medical history significant for prior stent placed back in May of this year. Patient did call the cardiology office and discuss this with them. They recommend emergency department evaluation. Pt complaint: chest pain Onset (ago): day(s) Duration: gradually worsening Onset: during rest, during exertion Pain Location: substernal, left chest Severity: moderate Severity scale (1-10): 10 Quality: aching, sharp Pain Radiation: LUE Improves with: nothing Worsens with: nothing Associated symptoms: Reports: nausea, dyspnea. Denies: vomiting, fever, cough Treatments prior to arrival chest pain: none - Related Data Home Medications Medication Instructions Recorded Confirmed Aspirin [Adult Low Dose Aspirin EC] 81 mg PO DAILY 06/03/15 10/30/16 Loratadine [Claritin] 10 mg PO DAILY 01/04/16 10/30/16 Fish Oil/Dha/Epa [Fish Oil 1,200 1,200 mg PO BID 01/05/16 10/30/16 mg Fish Oil] Albuterol Sulfate [Ventolin Hfa] 2 puff IH Q4H PRN 05/02/16 10/30/16 Ascorbic Acid [Vitamin C] 500 mg PO DAILY 05/02/16 10/30/16 Losartan Potassium [Cozaar] 25 mg PO BID 05/14/16 10/30/16 Furosemide [Lasix] 20 mg PO DAILY 07/30/16 10/30/16 Fluticasone Propionate Nasal 50 mcg NS BID 10/23/16 10/30/16 [Flonase] Glycerin/Propylene Glycol 2 drop BOTH EYES BID 10/23/16 10/30/16 [Artificial Tears Drops] Pantoprazole Sodium [Protonix] 40 mg PO DAILY 10/23/16 10/30/16 Ranitidine HCl [Heartburn Relief] 150 mg PO BID 10/23/16 10/30/16 Latanoprost [Xalatan] 1 drop BOTH EYES HS 10/30/16 10/30/16 Vitamin B Complex [B Complex] 1 each PO DAILY 10/30/16 10/30/16 Previous Rx's Medication Instructions Recorded Metoprolol [Lopressor] 12.5 mg PO BID #30 tablet 05/02/16 Clopidogrel [Plavix] 75 mg PO DAILY #30 tablet 05/14/16 Famotidine [Pepcid] 20 mg PO BID tab 10/25/16 Isosorbide MONOnitrate (24 HR) 30 mg PO DAILY #30 tab.er.24h 10/25/16 [Imdur] Allergies Allergy/AdvReac Type Severity Reaction Status Date / Time atorvastatin Allergy See Verified 07/30/16 18:23 Comments cephalexin Allergy Rash Verified 07/30/16 18:23 ciprofloxacin Allergy Redness of Verified 07/30/16 18:23 Skin dextromethorphan Allergy Rash Verified 07/30/16 18:23 [From Capmist DM] doxycycline Allergy Redness of Verified 07/30/16 18:23 Skin guaifenesin [From Capmist DM] Allergy Rash Verified 07/30/16 18:23 Penicillins Allergy Redness of Verified 07/30/16 18:23 Skin pseudoephedrine Allergy Rash Verified 07/30/16 18:23 [From Capmist DM] Amoxicillin AdvReac Abdominal Verified 07/30/16 18:23 Pain Benzonatate AdvReac nausea/vomi Verified 07/30/16 18:23 [From Tessalon Perles] ting cetirizine AdvReac Insomnia Verified 07/30/16 18:23 hydrocodone [From Vicodin] AdvReac nausea/vomi Verified 07/30/16 18:23 ting meloxicam AdvReac Muscle Pain Verified 07/30/16 18:23 mometasone furoate AdvReac Nose Bleed Verified 07/30/16 18:23 [From Nasonex] nitrofurantoin AdvReac See Verified 07/30/16 18:23 Comments Oxycodone [From Percocet] AdvReac nausea/vomi Verified 07/30/16 18:23 ting pravastatin AdvReac Muscle Pain Verified 07/30/16 18:23 sulfamethoxazole AdvReac Weakness Verified 07/30/16 18:23 [From Bactrim] trimethoprim [From Bactrim] AdvReac Weakness Verified 07/30/16 18:23 All systems ED: reviewed and negative except as stated. Chest Pain PMH - Past Medical History Medical history: Reports: arthritis, atrial fibrillation, GERD, glaucoma, hyperlipidemia, hypertension, osteoporosis, renal disease Surgical history: Reports: appendectomy, cataract, cholecystectomy, hysterectomy Psychiatric history: Reports: no psych history AERONAUTICAL ENGINEER history: Reports: no AERONAUTICAL ENGINEER history - Social History Smoking Status: Never smoker Alcohol use: Reports: none Drug use: Reports: none Physical Exam - General Limitations: no limitations General appearance: alert - Head Head exam: atraumatic, normocephalic, normal inspection - Eye Eye exam: Present: normal appearance, PERRL, EOMI - ENT ENT exam: normal exam, normal oropharynx, mucous membranes moist - Neck Neck exam: Present: normal inspection, full ROM, trachea midline - Chest Chest inspection: Present: normal inspection, symmetric chest wall rise, tenderness (L breast) - Respiratory Respiratory exam: Present: normal lung sounds bilaterally - Cardiovascular Cardiovascular exam: Present: regular rate, normal rhythm, normal heart sounds - Abdominal Exam Abdominal exam: Present: soft, Non-Tender. Absent: tenderness, distention, guarding, rebound, rigidity - Extremities Exam Extremities exam: Present: normal inspection, full ROM. Absent: tenderness, pedal edema - Back Exam Back exam: Present: normal inspection, full ROM. Absent: tenderness - Neurological Exam Neurological exam: Present: alert - Psychiatric Psychiatric exam: Present: normal affect, normal mood - Skin Skin exam: Present: warm, dry, intact, normal color Course Course Narrative: Patient seen and examined. Chest pain with recent stent placed in May. Recent cardiac testing was unremarkable. However she does have a stent scheduled for this Wednesday. We will do cardiopulmonary workup and then we will discuss with cardiology. - Reevaluation(s) Reevaluation #1: Cardiopulmonary workup unremarkable. I spoke with strategic marketing specialist Dr. Kumar will see the patient in consult. Since she has outpatient catheterization scheduled, we will see if cardiology wants to do this sooner. I spoke with hospitalist who has accepted patient for admission. Time: 18:05 Vital Signs Temperature 98.2 F 10/30/16 15:04 Pulse Rate 57 10/30/16 15:04 Respiratory Rate 15 10/30/16 15:04 Blood Pressure 144/97 10/30/16 15:04 O2 Sat by Pulse Oximetry 99 10/30/16 15:04 Temperature 98.2 F 10/30/16 15:04 Pulse Rate 59 10/30/16 16:43 Respiratory Rate 20 10/30/16 16:43 Blood Pressure 146/69 10/30/16 16:43 O2 Sat by Pulse Oximetry 100 10/30/16 16:43 Oxygen Delivery Oxygen Delivery Room Air Chest Pain - Medical Records Medical records reviewed: Yes I reviewed the patient's medical records. - Lab Data Lab results reviewed: Yes I reviewed the patient's lab results. Result diagrams: 10/30/16 15:30 10/30/16 15:30 Lab Results 10/30/16 10/30/16 10/30/16 Range/Units 15:30 15:30 15:30 WBC 5.3 (4.3-11.1) K/mcL RBC 4.30 (3.82-4.97) M/mcL Hgb 12.3 (11.5-15.4) g/dL Hct 36.4 (35.3-44.9) % MCV 84.7 (83.0-100.0) fL MCH 28.6 (28.0-33.3) pg MCHC 33.8 (31.6-35.5) g/dL RDW 13.2 (11.5-14.5) % Plt Count 149 (140-400) K/mcL MPV 9.4 (9.4-12.4) fL Immature Gran % 0.2 (0-4) % Seg Neutrophils % 61.4 % Lymphocytes % 27.9 % Monocytes % 7.8 % Eosinophils % 2.1 % Basophils % 0.6 % Neutrophils # 3.2 (1.6-8.9) K/mcL Lymphocytes # 1.5 (0.6-4.6) K/mcL Monocytes # 0.4 (0.0-1.3) K/mcL Eosinophils # 0.1 (0.0-0.6) K/mcL Basophils # 0.0 (0.0-0.2) K/mcL PT 10.7 (9.4-12.1) Seconds INR 1.0 APTT 32.0 (26.0-36.0) Seconds Sodium 137 (136-145) mEq/L Potassium 4.1 (3.5-4.5) mEq/L Chloride 100 (98-109) mEq/L Carbon Dioxide 30 H (19-29) mEq/L BUN 13 (7-20) mg/dL Creatinine 0.88 (0.57-1.11) mg/dL Est GFR ( Amer) > 60 (> 60) Est GFR (Non-Af Amer) > 60 (> 60) BUN/Creatinine Ratio 15 (6-26) Glucose 101 H (70-99) mg/dL Calculated Osmolality 284 (280-300) Calcium 9.7 (8.6-10.8) mg/dL Troponin I (0-0.03) ng/mL 10/30/ Range/Units 15:30 WBC (4.3-11.1) K/mcL RBC (3.82-4.97) M/mcL Hgb (11.5-15.4) g/dL Hct (35.3-44.9) % MCV (83.0-100.0) fL MCH (28.0-33.3) pg MCHC (31.6-35.5) g/dL RDW (11.5-14.5) % Plt Count (140-400) K/mcL MPV (9.4-12.4) fL Immature Gran % (0-4) % Seg Neutrophils % % Lymphocytes % % Monocytes % % Eosinophils % % Basophils % % Neutrophils # (1.6-8.9) K/mcL Lymphocytes # (0.6-4.6) K/mcL Monocytes # (0.0-1.3) K/mcL Eosinophils # (0.0-0.6) K/mcL Basophils # (0.0-0.2) K/mcL PT (9.4-12.1) Seconds INR APTT (26.0-36.0) Seconds Sodium (136-145) mEq/L Potassium (3.5-4.5) mEq/L Chloride (98-109) mEq/L Carbon Dioxide (19-29) mEq/L BUN (7-20) mg/dL Creatinine (0.57-1.11) mg/dL Est GFR ( Amer) (> 60) Est GFR (Non-Af Amer) (> 60) BUN/Creatinine Ratio (6-26) Glucose (70-99) mg/dL Calculated Osmolality (280-300) Calcium (8.6-10.8) mg/dL Troponin I 0.01 (0-0.03) ng/mL - Radiology Data Radiology results reviewed: Yes I reviewed the patient's radiology results. Chest X-Ray 10/30/16 15:20 IMPRESSION: No acute process. D/ / Sai Becerra MD / Sai Becerra MD Interpreting Provider: Sai Becerra MD - EKG Data EKG attestation: Yes I reviewed and interpreted this EKG. EKG results narrative: EKG done at 1502 shows sinus bradycardia with a rate of [address] depression in leads 2, 3, aVF, V4 through V6. Findings appear unchanged from prior EKG done 10/25/1999. Heart Score - Score History: Moderately Suspicious EKG: Non Specific repolarisation Disturbance Age: Greater than 65 Risk Factors: Equal/Greater than 3 risk factor or history of atherosclerotic disease Troponin: Less than normal limit HEART Score Total: 6 Attestation Statement - Attestation Attestation: I examined this patient and my medical decision-making was reviewed with the Resident Physician. I agree with the documented findings, disposition and treatment plan as described except to the extent set forth below. Patient to ED with a treatment of chest pain. Patient was a pain radiating to the right arm and neck. Recent stent placement. Admitted one week ago for the same, and she has a heart catheterization scheduled for Wednesday. Exam shows no acute distress with clear lungs. Plan. Cardiac workup and likely admission.
[2016-10-30 15:40] LABS: Basophils % 0.6 %; Eosinophils # 0.1 K/mcL (0.0-0.6); Eosinophils % 2.1 %; Hematocrit 36.4 % (35.3-44.9); Hemoglobin 12.3 g/dL (11.5-15.4); Immature Granulocytes % 0.2 % (0-4); Lymphocytes # 1.5 K/mcL (0.6-4.6); Lymphocytes % 27.9 %; Mean Corpuscular HGB Conc 33.8 g/dL (31.6-35.5); Mean Corpuscular Hemoglobin 28.6 pg (28.0-33.3); Mean Corpuscular Volume 84.7 fL (83.0-100.0); Mean Platelet Volume 9.4 fL (9.4-12.4); Monocytes # 0.4 K/mcL (0.0-1.3); Monocytes % 7.8 %; Neutrophils # 3.2 K/mcL (1.6-8.9); Platelet Count 149 K/mcL (140-400); Red Cell Distribution Width 13.2 % (11.5-14.5); Segmented Neutrophils % 61.4 %
[2016-10-30 15:48] LABS: Prothrombin Time 10.7 Seconds (9.4-12.1)
[2016-10-30 15:59] LABS: BUN/Creatinine Ratio 15 (6-26); Blood Urea Nitrogen 13 mg/dL (7-20); Calcium 9.7 mg/dL (8.6-10.8); Carbon Dioxide 30 mEq/L (19-29); Chloride 100 mEq/L (98-109); Glucose 101 mg/dL (70-99); Osmolality,Calculated 284 (280-300); Potassium 4.1 mEq/L (3.5-4.5); Sodium 137 mEq/L (136-145); eGFR For African Americans > 60 (> 60); eGFR For Non-African Americans > 60 (> 60)
[2016-10-30] MEDS ORDERED: Naloxone 0.4 MG/ML INJ IVP PRN (19:15)
[2016-10-30] MEDS ORDERED: Acetaminophen 325 MG TABLET PO PRN (19:15)
--- NOTE | 2016-10-30 19:49 | Internal Med History&Physical ---
<Felipa Watts M - Last Filed: 10/30/16 20:34> Date of Encounter: 10/30/16 Time of Encounter: 19:45 Assessment and Plan (1) Chest pain Current visit: Yes Status: Acute Patient presents with intermittent chest pain accompanied by palpitations, sweats and shortness of breath. EKG shows sinus rhythm with minimal ST depression. Troponin negative at 0.01. Patient had stent to LAD in May. She was here a few days ago for similar symptoms and echo showed EF of 70% and normal LV systolic function. She has a C scheduled on Wednesday for these symptoms, but came in because she felt like her symptoms were getting worse. 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 NPO after midnight for possible cath. Qualifiers: Chest pain type: chest pain due to myocardial ischemia Ischemic chest pain type: stable angina pectoris Qualified Code(s): I20.8 - Other forms of angina pectoris (2) History of atrial fibrillation Current visit: Yes Status: Chronic Patient had previous episode of afib caught on monitor, however she had a 1month monitor which showed sinus rhythm and her ekg today shows sinus rhythm as well. (3) CAD (coronary artery disease) Current visit: Yes Status: Chronic Patient had stent to LAD in May. She presents with chest pain today and is getting evaluated. Continue home doses of aspirin, plavix, statin, imdur. Cardiology consulted. Qualifiers: Coronary Disease-Associated Artery/Lesion type: [place] artery [place] vs. transplanted heart: [place] heart Associated angina: with stable angina Qualified Code(s): I25.118 - Atherosclerotic heart disease of [place] coronary artery with other forms of angina pectoris (4) Hypertension Current visit: Yes Status: Chronic Blood pressure has been controlled since arrival. Continue home doses of losartan, lasix, and metoprolol. Qualifiers: Hypertension type: essential hypertension Qualified Code(s): I10 - Essential (primary) hypertension (5) DVT prophylaxis Current visit: Yes Status: Acute anti-embolic stockings lovenox SQ daily Internal Medicine - H&P: HPI Chief complaint: chest pain Admitted From: Emergency Dept Plans for Post Hospital Care: Home History of present illness: Ms. Keyes is a 76 year old female with hypertension, hyperlipidemia, COPD, coronary artery disease status post stent placement in May presented to the emergency department today with complaints of chest pain. Patient reports she has been having intermittent chest pain for the last 2 weeks. She was seen at [facility] last week and at our hospital a few days ago, she is scheduled for a left heart catheter next week decided to come in because of chest pain got worse. Patient reports the pain is sharp, accompanied by palpitations, on the left side of her chest, lasts approximately 10-20 minutes and comes and goes. It is worse with activity, however she does have it at rest as well. She also has shortness of breath, she reports episodes of lightheadedness and sweats. She denies any headache, coughing, abdominal pain, diarrhea. She does report some nausea. She denies any fever or chills. Evaluation in the emergency department included an EKG which showed sinus rhythm with heart rate of 54. Troponin was negative at 0.01. Other labs were grossly normal. Dr. Kumar was consulted and will plan to see patient. On exam, patient alert and oriented, in no acute distress. Heart has regular rate and rhythm, lungs are clear bilaterally to auscultation. Abdomen soft, nontender, with positive bowel sounds. She had trace bilateral lower extremity edema. Past Med Surg Social Fam HX - Past Medical History Medical history: arthritis, atrial fibrillation, COPD, coronary artery disease, GERD, glaucoma, hyperlipidemia, hypertension, osteoporosis, renal disease Psychiatric history: no psych history - Past Surgical History Surgical History: appendectomy, cataract, cholecystectomy, hysterectomy - Social History Smoking Status: Never smoker Smokeless Tobacco Status: No Alcohol use: none Drug use: none - Family History Brother Hx Family Cardiac Disorders: Yes Sister Living Status: Still Living Hx Family Cardiac Disorders: Yes Hx Family Respiratory Disorders: Yes (COPD) Hx Family Cancer: No Hx Family GI Disorders: Yes (GERD) Hx Family Endocrine Disorder: Yes Hx Family Neuromuscular Disorders: No Hx Family Neurologic Disorders: No Hx Family HEENT Disorders: No Hx Family Autoimmune Disorders: No Mother Living Status: Hx Family Cardiac Disorders: No Hx Family Respiratory Disorders: No Hx Family Cancer: No Hx Family GI Disorders: No Hx Family Endocrine Disorder: No Hx Family Neuromuscular Disorders: No Hx Family Neurologic Disorders: No Hx Family HEENT Disorders: No Hx Family Autoimmune Disorders: No Father Living Status: Hx Family Cardiac Disorders: No Hx Family Respiratory Disorders: No Hx Family Cancer: No Hx Family GI Disorders: No Hx Family Endocrine Disorder: No Hx Family Neuromuscular Disorders: No Hx Family Neurologic Disorders: No Hx Family HEENT Disorders: No Hx Family Autoimmune Disorders: No Internal Medicine - H&P: Meds Aspirin [Adult Low Dose Aspirin EC] 81 mg PO DAILY 06/03/15 [History] Loratadine [Claritin] 10 mg PO DAILY 01/04/16 [History] Fish Oil/Dha/Epa [Fish Oil 1,200 mg Fish Oil] 1,200 mg PO BID 01/05/16 [History] Albuterol Sulfate [Ventolin Hfa] 2 puff IH Q4H PRN 05/02/16 [History] Ascorbic Acid [Vitamin C] 500 mg PO DAILY 05/02/16 [History] Metoprolol [Lopressor] 12.5 mg PO BID #30 tablet 05/02/16 [Rx] Clopidogrel [Plavix] 75 mg PO DAILY #30 tablet 05/14/16 [Rx] Losartan Potassium [Cozaar] 25 mg PO BID 05/14/16 [History] Furosemide [Lasix] 20 mg PO DAILY 07/30/16 [History] Fluticasone Propionate Nasal [Flonase] 50 mcg NS BID 10/23/16 [History] Glycerin/Propylene Glycol [Artificial Tears Drops] 2 drop BOTH EYES BID [History] Pantoprazole Sodium [Protonix] 40 mg PO DAILY 10/23/16 [History] Ranitidine HCl [Heartburn Relief] 150 mg PO BID 10/23/16 [History] Famotidine [Pepcid] 20 mg PO BID tab 10/25/16 [Rx] Isosorbide MONOnitrate (24 HR) [Imdur] 30 mg PO DAILY #30 tab.er.24h 10/25/16 [ Rx] Latanoprost [Xalatan] 1 drop BOTH EYES HS 10/30/16 [History] Vitamin B Complex [B Complex] 1 each PO DAILY 10/30/16 [History] 3 Allergy/AdvReac Type Severity Reaction Status Date / Time atorvastatin Allergy See Verified 07/30/16 18:23 Comments cephalexin Allergy Rash Verified 07/30/16 18:23 ciprofloxacin Allergy Redness of Verified 07/30/16 18:23 Skin dextromethorphan Allergy Rash Verified 07/30/16 18:23 [From Capmist DM] doxycycline Allergy Redness of Verified 07/30/16 18:23 Skin guaifenesin [From Capmist DM] Allergy Rash Verified 07/30/16 18:23 Penicillins Allergy Redness of Verified 07/30/16 18:23 Skin pseudoephedrine Allergy Rash Verified 07/30/16 18:23 [From Capmist DM] Amoxicillin AdvReac Abdominal Verified 07/30/16 18:23 Pain Benzonatate AdvReac nausea/vomi Verified 07/30/16 18:23 [From Tessalon Perles] ting cetirizine AdvReac Insomnia Verified 07/30/16 18:23 hydrocodone [From Vicodin] AdvReac nausea/vomi Verified 07/30/16 18:23 ting meloxicam AdvReac Muscle Pain Verified 07/30/16 18:23 mometasone furoate AdvReac Nose Bleed Verified 07/30/16 18:23 [From Nasonex] nitrofurantoin AdvReac See Verified 07/30/16 18:23 Comments Oxycodone [From Percocet] AdvReac nausea/vomi Verified 07/30/16 18:23 ting pravastatin AdvReac Muscle Pain Verified 07/30/16 18:23 sulfamethoxazole AdvReac Weakness Verified 07/30/16 18:23 [From Bactrim] trimethoprim [From Bactrim] AdvReac Weakness Verified 07/30/16 18:23 All Systems PM: A 10-system review of systems was performed and is negative for pertinent findings except as documented above in the HPI. - Constitutional Constitutional: no chills, no fever(s), no night sweats - EENT Eyes: no change in vision, no discharge, no pain, no photophobia Ears: no ear discharge, no ear pain, no tinnitus Nose, mouth and throat: no dysphagia, no nasal discharge, no neck pain, no sore throat - Cardiovascular Cardiovascular ROS IM: chest pain, diaphoresis, dyspnea on exertion, lightheadedness, palpitations, no dyspnea, no syncope - Respiratory Respiratory: no cough, no dyspnea, no wheezing, no excessive phlegm production - Gastrointestinal Gastrointestinal: nausea, no abdominal pain, no diarrhea, no hematemesis, no hematochezia, no melena, no vomiting - Genitourinary Genitourinary: no change in urinary stream, no dysuria, no flank pain, no hematuria - Musculoskeletal Musculoskeletal ROS IM: no numbness, no tingling - Integumentary Integumentary IM: no rash, no unusual bruising - Neurological Neurological ROS: no confusion, no convulsions, no focal weakness, no numbness, no tingling, no tremor(s) - Hematologic/Lymphatic Hematologic/Lymphatic: no easy bruising - Constitutional Vitals: Temp Pulse Resp BP Pulse Ox 97.6 F 80 12 138/71 94 10/30/16 18:44 10/30/16 18:44 10/30/16 18:44 10/30/16 18:44 10/30/16 18:07 General appearance: Present: A&O X 3, pleasant, no acute distress - Head Head exam: Present: atraumatic, normocephalic - Eye Eye exam: Present: PERRL, conjuntiva pink, sclera anicteric Pupils: Present: PERRL - Neck Neck exam general surgery: Present: supple, trachea midline. Absent: lymphadenopathy - Respiratory Respiratory exam: Present: CTAB. Absent: accessory muscle use, rales, rhonchi, wheezes - Cardiovascular Cardiovascular exam: Present: RRR, +S1, +S2. Absent: diastolic murmur, gallop, rubs, systolic murmur - GI/Abdominal GI/Abdominal exam: Present: normal bowel sounds, soft, no peritoneal signs. Absent: distended, tenderness - Extremities Exam Extremities exam: Present: pedal edema (trace BLE edema), warm, radial pulses palpable and symmetrical. Absent: calf tenderness, cyanotic - Neurological Exam Neurological exam: Present: CN II-XII intact, oriented X3, no focal deficits. Absent: facial droop, speech deficit - Skin Skin exam: Present: dry, intact Internal Med - H&P Results - Labs CBC & Chem 7: 10/30/16 15:30 10/30/16 15:30 Labs: All Lab Results (24 Hours) 10/30/16 10/30/16 10/30/16 Range/Units 15:30 15:30 15:30 WBC 5.3 (4.3-11.1) K/mcL RBC 4.30 (3.82-4.97) M/mcL Hgb 12.3 (11.5-15.4) g/dL Hct 36.4 (35.3-44.9) % MCV 84.7 (83.0-100.0) fL MCH 28.6 (28.0-33.3) pg MCHC 33.8 (31.6-35.5) g/dL RDW 13.2 (11.5-14.5) % Plt Count 149 (140-400) K/mcL MPV 9.4 (9.4-12.4) fL Immature Gran % 0.2 (0-4) % Seg Neutrophils % 61.4 % Lymphocytes % 27.9 % Monocytes % 7.8 % Eosinophils % 2.1 % Basophils % 0.6 % Neutrophils # 3.2 (1.6-8.9) K/mcL Lymphocytes # 1.5 (0.6-4.6) K/mcL Monocytes # 0.4 (0.0-1.3) K/mcL Eosinophils # 0.1 (0.0-0.6) K/mcL Basophils # 0.0 (0.0-0.2) K/mcL PT 10.7 (9.4-12.1) Seconds INR 1.0 APTT 32.0 (26.0-36.0) Seconds Sodium 137 (136-145) mEq/L Potassium 4.1 (3.5-4.5) mEq/L Chloride 100 (98-109) mEq/L Carbon Dioxide 30 H (19-29) mEq/L BUN 13 (7-20) mg/dL Creatinine 0.88 (0.57-1.11) mg/dL Est GFR ( Amer) > 60 (> 60) Est GFR (Non-Af Amer) > 60 (> 60) BUN/Creatinine Ratio 15 (6-26) Glucose 101 H (70-99) mg/dL Calculated Osmolality 284 (280-300) Calcium 9.7 (8.6-10.8) mg/dL Troponin I (0-0.03) ng/mL 10/30/16 Range/Units 15:30 WBC (4.3-11.1) K/mcL RBC (3.82-4.97) M/mcL Hgb (11.5-15.4) g/dL Hct (35.3-44.9) % MCV (83.0-100.0) fL MCH (28.0-33.3) pg MCHC (31.6-35.5) g/dL RDW (11.5-14.5) % Plt Count (140-400) K/mcL MPV (9.4-12.4) fL Immature Gran % (0-4) % Seg Neutrophils % % Lymphocytes % % Monocytes % % Eosinophils % % Basophils % % Neutrophils # (1.6-8.9) K/mcL Lymphocytes # (0.6-4.6) K/mcL Monocytes # (0.0-1.3) K/mcL Eosinophils # (0.0-0.6) K/mcL Basophils # (0.0-0.2) K/mcL PT (9.4-12.1) Seconds INR APTT (26.0-36.0) Seconds Sodium (136-145) mEq/L Potassium (3.5-4.5) mEq/L Chloride (98-109) mEq/L Carbon Dioxide (19-29) mEq/L BUN (7-20) mg/dL Creatinine (0.57-1.11) mg/dL Est GFR ( Amer) (> 60) Est GFR (Non-Af Amer) (> 60) BUN/Creatinine Ratio (6-26) Glucose (70-99) mg/dL Calculated Osmolality (280-300) Calcium (8.6-10.8) mg/dL Troponin I 0.01 (0-0.03) ng/mL - Diagnostic Studies Chest x-ray Additional comments: Chest X-Ray 10/30/16 15:20 IMPRESSION: No acute process. D/ / Sai Becerra MD / Sai Becerra MD Interpreting Provider: Sai Becerra MD <Moiz Aviles - Last Filed: 10/30/16 23:57> Date of Encounter: 10/30/16 Internal Medicine - H&P: HPI History of present illness: Ms. Keyes is a 76 year old female All Systems PM: A 10-system review of systems was performed and is negative for pertinent findings except as documented above in the HPI. - Constitutional Vitals: Temp Pulse Resp BP Pulse Ox 97.6 F 63 15 121/58 97 08/25/17 23:09 10/30/16 23:09 10/30/16 23:09 10/30/16 23:09 10/30/16 23:09 Internal Med - H&P Results - Labs CBC & Chem 7: 10/30/16 15:30 10/30/16 15:30 Labs: Cardiac Enzymes 10/30/16 Range/Units 22:09 Troponin I 0.00 (0-0.03) ng/mL - Attending Attestation I independently obtained history and examined this patient and my medical decision-making was reviewed with the nurse practitioner, Felipa Watts. I agree with the documented findings, disposition and treatment plan as described. My findings are summarized below: Patient presented with chest pain. Currently she is chest pain-free. Physical exam and not revealing. We will place patient in observation. Monitor on telemetry. Trend troponin. Consult cardiology.
[2016-10-30] MEDS: Famotidine 20 MG TABLET PO SCH (20:41)
[2016-10-30] MEDS: Latanoprost 2.5 ML BOTTLE BOTH EYES SCH (20:42)
[2016-10-30] MEDS ORDERED: NON-FORMULARY MEDICATION 1 EACH EACH (Ranitidine Hcl [Heartburn Relief] 150 MG) PO SCH (21:00)
[2016-10-31 04:45] LABS: Basophils % 0.7 %; Eosinophils # 0.1 K/mcL (0.0-0.6); Eosinophils % 3.2 %; Hematocrit 34.2 % (35.3-44.9); Hemoglobin 11.3 g/dL (11.5-15.4); Immature Granulocytes % 0.2 % (0-4); Lymphocytes # 1.5 K/mcL (0.6-4.6); Lymphocytes % 33.1 %; Mean Corpuscular Hemoglobin 28.3 pg (28.0-33.3); Mean Corpuscular Volume 85.5 fL (83.0-100.0); Mean Platelet Volume 9.8 fL (9.4-12.4); Monocytes # 0.4 K/mcL (0.0-1.3); Monocytes % 7.9 %; Neutrophils # 2.4 K/mcL (1.6-8.9); Platelet Count 140 K/mcL (140-400); Segmented Neutrophils % 54.9 %
[2016-10-31 05:00] LABS: BUN/Creatinine Ratio 16 (6-26); Blood Urea Nitrogen 12 mg/dL (7-20); Carbon Dioxide 28 mEq/L (19-29); Chloride 105 mEq/L (98-109); Glucose 101 mg/dL (70-99); Osmolality,Calculated 288 (280-300); Potassium 3.9 mEq/L (3.5-4.5); Sodium 139 mEq/L (136-145); eGFR For African Americans > 60 (> 60); eGFR For Non-African Americans > 60 (> 60)
[2016-10-31] MEDS ORDERED: *HR* Enoxaparin 40 MG/0.4 ML SYRINGE SQ SCH (07:00)
[2016-10-31] MEDS: Famotidine 20 MG TABLET PO SCH ×2 (08:31→20:18)
[2016-10-31] MEDS ORDERED: Furosemide 20 MG TABLET PO SCH (09:00)
[2016-10-31] MEDS ORDERED: Aspirin Enteric Coated 81 MG Tablet PO SCH (09:00)
[2016-10-31] MEDS ORDERED: Loratadine 10 MG TABLET PO SCH (09:00)
[2016-10-31] MEDS ORDERED: Isosorbide MONOnitrate (24 HR) 30 MG TAB.ER.24H PO SCH (09:00)
--- NOTE | 2016-10-31 11:35 | Cardiology Consult Note ---
Date of Encounter: 10/31/16 Time of Encounter: 11:32 Assessment and Plan (1) CAD (coronary artery disease) Current Visit: Yes Status: Chronic [place] CAD, PCI with GHULAM x1 LAD 05/2016. Recurrent chest discomfort despite medical therapy. Seen by primary heel wheeler last week and scheduled for [facility] Wednesday. Returned to hospital with chest pain yesterday. Given recurrent symptoms, we discussed the r/b/a to a [facility]. Patient understands and wishes to proceed. Continue aspirin/plavix, bb. Reports statin allergy. Risk factor modificaton encouraged. Further recommendations to follow. Qualifiers: Coronary Disease-Associated Artery/Lesion type: [place] artery [place] vs. transplanted heart: [place] heart Associated angina: with stable angina Qualified Code(s): I25.118 - Atherosclerotic heart disease of [place] coronary artery with other forms of angina pectoris (2) Presence of stent in LAD coronary artery Current Visit: Yes Status: Acute Discussion w patient/family: The assessment and plan as outlined above was discussed with the patient and/or family members who expressed understanding and agreement. All questions were answered. Thank you for involving us in the care of your patient. Please call with any questions. History of Present Illness Consult date: 10/31/16 Requesting physician: Moiz Aviles Consult reason: Chest pain Chief complaint: Chest pain History of present illness: Ms. Keyes is a 76 year old female with a history of CAD. [facility] 05/2016 resulted in PCI with GHULAM x1 to LAD. Other arteries described as normal. LVEF preserved. Patient recently presented to hospital with chest pain - seen by cardiology 10/24 , TTE normal LVEF, medical therapy recommended. Patient seen by Dr. Silvio Bennett last week. Recurrent chest pain again described and [facility] set up for next Wednesday. She returned to the hospital yesterday with complaints of chest pain - substernal, left sided, no radiation, occurs at rest and with activity. Troponins negative. Past Med Surg Social Fam HX - Past Medical History Medical history: arthritis, atrial fibrillation, COPD, coronary artery disease, GERD, glaucoma, hyperlipidemia, hypertension, osteoporosis, renal disease Psychiatric history: no psych history - Past Surgical History Surgical History: appendectomy, cataract, cholecystectomy, hysterectomy - Social History Smoking Status: Never smoker Smokeless Tobacco Status: No Alcohol use: none Drug use: none - Family History Brother Hx Family Cardiac Disorders: Yes Sister Living Status: Still Living Hx Family Cardiac Disorders: Yes Hx Family Respiratory Disorders: Yes (COPD) Hx Family Cancer: No Hx Family GI Disorders: Yes (GERD) Hx Family Endocrine Disorder: Yes Hx Family Neuromuscular Disorders: No Hx Family Neurologic Disorders: No Hx Family HEENT Disorders: No Hx Family Autoimmune Disorders: No Mother Living Status: Hx Family Cardiac Disorders: No Hx Family Respiratory Disorders: No Hx Family Cancer: No Hx Family GI Disorders: No Hx Family Endocrine Disorder: No Hx Family Neuromuscular Disorders: No Hx Family Neurologic Disorders: No Hx Family HEENT Disorders: No Hx Family Autoimmune Disorders: No Father Living Status: Hx Family Cardiac Disorders: No Hx Family Respiratory Disorders: No Hx Family Cancer: No Hx Family GI Disorders: No Hx Family Endocrine Disorder: No Hx Family Neuromuscular Disorders: No Hx Family Neurologic Disorders: No Hx Family HEENT Disorders: No Hx Family Autoimmune Disorders: No Medications and Allergies Aspirin [Adult Low Dose Aspirin EC] 81 mg PO DAILY 06/03/15 [History] Loratadine [Claritin] 10 mg PO DAILY 01/04/16 [History] Fish Oil/Dha/Epa [Fish Oil 1,200 mg Fish Oil] 1,200 mg PO BID 01/05/16 [History] Albuterol Sulfate [Ventolin Hfa] 2 puff IH Q4H PRN 05/02/16 [History] Ascorbic Acid [Vitamin C] 500 mg PO DAILY 05/02/16 [History] Metoprolol [Lopressor] 12.5 mg PO BID #30 tablet 05/02/16 [Rx] Clopidogrel [Plavix] 75 mg PO DAILY #30 tablet 05/14/16 [Rx] Losartan Potassium [Cozaar] 25 mg PO BID 05/14/16 [History] Furosemide [Lasix] 20 mg PO DAILY 07/30/16 [History] Fluticasone Propionate Nasal [Flonase] 50 mcg NS BID 10/23/16 [History] Glycerin/Propylene Glycol [Artificial Tears Drops] 2 drop BOTH EYES BID [History] Pantoprazole Sodium [Protonix] 40 mg PO DAILY 10/23/16 [History] Ranitidine HCl [Heartburn Relief] 150 mg PO BID 10/23/16 [History] Famotidine [Pepcid] 20 mg PO BID tab 10/25/16 [Rx] Isosorbide MONOnitrate (24 HR) [Imdur] 30 mg PO DAILY #30 tab.er.24h 10/25/16 [ Rx] Latanoprost [Xalatan] 1 drop BOTH EYES HS 10/30/16 [History] Vitamin B Complex [B Complex] 1 each PO DAILY 10/30/16 [History] 3 Allergy/AdvReac Type Severity Reaction Status Date / Time atorvastatin Allergy See Verified 07/30/16 18:23 Comments cephalexin Allergy Rash Verified 07/30/16 18:23 ciprofloxacin Allergy Redness of Verified 07/30/16 18:23 Skin dextromethorphan Allergy Rash Verified 07/30/16 18:23 [From Capmist DM] doxycycline Allergy Redness of Verified 07/30/16 18:23 Skin guaifenesin [From Capmist DM] Allergy Rash Verified 07/30/16 18:23 Penicillins Allergy Redness of Verified 07/30/16 18:23 Skin pseudoephedrine Allergy Rash Verified 07/30/16 18:23 [From Capmist DM] Amoxicillin AdvReac Abdominal Verified 07/30/16 18:23 Pain Benzonatate AdvReac nausea/vomi Verified 07/30/16 18:23 [From Tessalon Perles] ting cetirizine AdvReac Insomnia Verified 07/30/16 18:23 hydrocodone [From Vicodin] AdvReac nausea/vomi Verified 07/30/16 18:23 ting meloxicam AdvReac Muscle Pain Verified 07/30/16 18:23 mometasone furoate AdvReac Nose Bleed Verified 07/30/16 18:23 [From Nasonex] nitrofurantoin AdvReac See Verified 07/30/16 18:23 Comments Oxycodone [From Percocet] AdvReac nausea/vomi Verified 07/30/16 18:23 ting pravastatin AdvReac Muscle Pain Verified 07/30/16 18:23 sulfamethoxazole AdvReac Weakness Verified 07/30/16 18:23 [From Bactrim] trimethoprim [From Bactrim] AdvReac Weakness Verified 07/30/16 18:23 All Systems Review: A 10-system review of systems was performed and is negative for pertinent findings except as documented above in the HPI. - Cardiovascular Cardiovascular: as per HPI, chest pain at rest, chest pain with exertion, dyspnea on exertion Physical Examination Vital Signs, Last 4 Hours Temp Pulse Resp BP Pulse Ox 10/31/16 11:19 97.6 F 55 16 104/66 96 10/31/16 08:30 97 General: Conversant, No Apparent Distress HEENT: Atraumatic, Normocephaly, Mucus Membranes Moist Neck: No JVD, Normal carotid pulses Cardiac: Reg Rate and Rhythm, Normal S1 and S2, No Murmur Lungs: Normal Breath Sounds, No Wheeze, Rales, Rhonchi Neuro: Alert and responsive, No focal deficits noted Abdomen: Soft, Non-Tender Skin: No rashes noted on visualized skin Musculoskeletal: No Chest Wall Tenderness Extremities: No Clubbing, No Cyanosis, No Edema Results 10/31/16 04:32 10/31/16 04:32 Lab Results 10/30/16 10/31/16 10/31/16 22:09 04:32 04:32 WBC 4.4 Hgb 11.3 L Hct 34.2 L Plt Count 140 Sodium Potassium Chloride Carbon Dioxide BUN Creatinine Glucose Calcium Troponin I 0.00 0.00 10/31/16 04:32 WBC Hgb Hct Plt Count Sodium 139 Potassium 3.9 Chloride 105 Carbon Dioxide 28 BUN 12 Creatinine 0.77 Glucose 101 H Calcium 9.0 Troponin I - Imaging and Cardiology Echo: report reviewed Cardiac cath: report reviewed - EKG Interpretation EKG results cardiology: personally reviewed Consult Discharge Plan - Plan Referrals: Roopa Lambert CNP [Primary Care Provider] -
[2016-10-31] MEDS ORDERED: Verapamil 5 MG/2 ML VIAL ONE (12:45)
[2016-10-31] MEDS ORDERED: Nitroglycerin 1,000 MCG/10 ML VIAL IV ONE (12:45)
[2016-10-31] MEDS ORDERED: Heparin 1,000 UNITS/500 mL NS 500 ML ONE (12:45)
[2016-10-31] MEDS ORDERED: 0.9 % Sodium Chloride 1,000 ML ONE ×2 (12:45→15:21)
[2016-10-31] MEDS ORDERED: *HR* Heparin 10,000 UNIT/10 ML VIAL ONE (12:45)
--- NOTE | 2016-10-31 13:07 | Internal Med Progress Note ---
Date of Encounter: 10/31/16 Time of Encounter: 12:15 - Assessment and plan (1) Chest pain Current Visit: Yes Status: Acute Assessment and plan: Patient still endorsing chest pain and chest pressure. She states this pain and pressure have been present since her stent was placed in May to her LAD. Chest x-ray negative. Troponin negative 3. Cardiology on board-plans for left heart catheter today. Of note, patient also has a history of recurrent biliary colic. If left heart cath is unremarkable, will investigate intra- abdominal processes. ITS Impressions Chest X-Ray 10/30/16 15:20 IMPRESSION: No acute process. D/ / Sai Becerra MD / Sai Becerra MD Interpreting Provider: Sai Becerra MD Qualifiers: Chest pain type: chest pain due to myocardial ischemia Ischemic chest pain type: stable angina pectoris Qualified Code(s): I20.8 - Other forms of angina pectoris (2) Anxiety about health Current Visit: No Status: Chronic (3) CAD (coronary artery disease) Current Visit: Yes Status: Chronic Qualifiers: Coronary Disease-Associated Artery/Lesion type: [place] artery [place] vs. transplanted heart: [place] heart Associated angina: with stable angina Qualified Code(s): I25.118 - Atherosclerotic heart disease of [place] coronary artery with other forms of angina pectoris (4) Dyslipidemia Current Visit: No Status: Chronic Assessment and plan: Lipid panel essentially unremarkable. Patient has a documented allergy to statin. We will defer to cardiology or guarding medications. I spoke to the patient about a low-cholesterol diet but she readily admits that she likes [employer] and [employer]. (5) History of atrial fibrillation Current Visit: Yes Status: Chronic Assessment and plan: Attempted to review telemetry-a lot of artifact present. Rate controlled. Not on anticoagulation therapy. (6) Hypertension Current Visit: No Status: Chronic Assessment and plan: Controlled, will continue to trend and adjust medications as indicated. Qualifiers: Hypertension type: essential hypertension Qualified Code(s): I10 - Essential (primary) hypertension (7) Presence of stent in LAD coronary artery Current Visit: Yes Status: Chronic (8) S/P laparoscopic cholecystectomy Current Visit: No Status: Chronic (9) DVT prophylaxis Current Visit: No Status: Acute Assessment and plan: Subcutaneous Lovenox (10) Obesity (BMI 30-39.9) Current Visit: No Status: Chronic - Subjective Interval history: Patient seen and examined. 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 Patient stating her chest pain/ pressure is "about the same." She denies shortness of breath above her norm. She is concerned because she states that she has had chest pain ever since her stent was placed in May. - Constitutional Vitals: Temp Pulse Resp BP Pulse Ox 97.6 F 55 16 104/66 96 10/31/16 11:19 10/31/16 11:19 10/31/16 11:19 10/31/16 11:19 10/31/16 11:19 General appearance: Present: A&O X 3, pleasant, no acute distress, answers questions appropriately - Head Head exam: Present: atraumatic, normocephalic - Eye Eye exam: Present: PERRL, conjuntiva pink, sclera anicteric Pupils: Present: PERRL - Neck Neck exam general surgery: Present: supple, trachea midline. Absent: lymphadenopathy - Respiratory Respiratory exam: Present: CTAB. Absent: accessory muscle use, rales, respiratory distress, rhonchi, wheezes - Cardiovascular Cardiovascular exam: Present: RRR, +S1, +S2. Absent: diastolic murmur, gallop, rubs, systolic murmur - GI/Abdominal GI/Abdominal exam: Present: normal bowel sounds, soft, no peritoneal signs. Absent: distended, tenderness - Extremities Exam Extremities exam: Present: warm, radial pulses palpable and symmetrical. Absent : calf tenderness, cyanotic, pedal edema - Neurological Exam Neurological exam: Present: alert, CN II-XII intact, oriented X3, no focal deficits, strengths equal and symetr throughout. Absent: pronater drift, facial droop, speech deficit - Skin Skin exam: Present: dry, intact, pallor, warm Internal Medicine: Result - Labs CBC & Chem 7: 10/31/16 04:32 10/31/16 04:32 Labs: Short CBC 10/31/16 Range/Units 04:32 WBC 4.4 (4.3-11.1) K/mcL Hgb 11.3 L (11.5-15.4) g/dL Hct 34.2 L (35.3-44.9) % Plt Count 140 (140-400) K/mcL Neutrophils # 2.4 (1.6-8.9) K/mcL BMP 10/31/16 04:32 Sodium 139 Potassium 3.9 Chloride 105 Carbon Dioxide 28 BUN 12 Creatinine 0.77 Glucose 101 H Calcium 9.0 Cardiac Enzymes 10/30/16 10/31/16 Range/Units 22:09 04:32 Troponin I 0.00 0.00 (0-0.03) ng/mL - ABG Interpretation ABG results: PT/INR, D-dimer PT 10.7 Seconds (9.4-12.1) 10/30/16 15:30 Consult Discharge Plan - Plan Referrals: Roopa Lambert CNP [Primary Care Provider] -
[2016-10-31] MEDS ORDERED: *HR* Midazolam HCl 2 MG/2 ML VIAL ONE (15:20)
[2016-10-31] MEDS ORDERED: *HR* FentaNYL (PF) 100 MCG/2 ML VIAL ONE (15:20)
--- NOTE | 2016-10-31 15:20 | Pre-Sedation Evaluation ---
Pre-sedation evaluation - Pre-sedation checklist Date of procedure: 10/31/16 Procedure: left heart cath Recent Vitals: Last Vital Signs Temp 97.6 F 10/31/16 11:19 Pulse 55 10/31/16 11:19 Resp 16 10/31/16 11:19 BP 104/66 10/31/16 11:19 Pulse Ox 96 10/31/16 11:19 H&P (including ROS) documented in medical record: Yes Previous reaction to sedatives/anesthetics: No Dietary Status: NPO after Midnight Airway Assessment: Patient can open mouth completely, TMJ function normal Dentition: No loose teeth or bridges Possible difficult airway: No ASA Classification *see protocol: CLASS II-Mild systemic disease Plan of Care: Pt appropriate candidate for procedure/moderate/conscious sedation , Risks/benefits of procedure/sedation discussed w/ patient/family
--- NOTE | 2016-10-31 15:54 | Procedure Note ---
Date of procedure: 10/31/16 Pre-op diagnosis: CAD Post-op diagnosis: same Procedure: Selective coronary arteriography was performed revealing 20% proximal right coronary artery stenosis, 20% stenosis in the mid right coronary artery. There was a widely patent stent in the proximal LAD followed by mid vessel 20% stenosis in LAD. Circumflex artery had no significant disease. No complications Right radial artery access Anesthesia: local, IV sedation Pathology: none sent Condition: stable Disposition: floor
--- NOTE | 2016-10-31 16:40 | Event Note ---
Date of Encounter: 10/31/16 Time of Encounter: 16:39 [facility] performed - patent stent, minimal CAD. No further inpatient cardiology recommendations. Followup with primary retort furnace operator, Dr. Bennett.
[2016-10-31 17:49] LABS: Alanine Aminotransferase 16 Units/L (0-55); Albumin 3.6 g/dL (3.5-5.0); Albumin/Globulin Ratio 1.2 (1.1-2.2); Alkaline Phosphatase 67 Units/L (38-126); Aspartate Amino Transferase 18 Units/L (5-34); BUN/Creatinine Ratio 12 (6-26); Bilirubin,Direct 0.2 mg/dL (0.0-0.5); Bilirubin,Indirect 0.4 mg/dL (0.0-1.2); Bilirubin,Total 0.6 mg/dL (0.2-1.2); Blood Urea Nitrogen 11 mg/dL (7-20); Calcium 9.2 mg/dL (8.6-10.8); Carbon Dioxide 31 mEq/L (19-29); Chloride 100 mEq/L (98-109); Glucose 97 mg/dL (70-99); Lipase 80 Units/L (8-78); Osmolality,Calculated 285 (280-300); Potassium 3.8 mEq/L (3.5-4.5); Sodium 138 mEq/L (136-145); Total Protein 6.6 g/dL (6.0-8.3); eGFR For African Americans > 60 (> 60); eGFR For Non-African Americans > 60 (> 60)
--- NOTE | 2016-10-31 17:52 | Discharge Summary ---
Date of Encounter: 10/31/16 Time of Encounter: 18:00 - Discharge Diagnosis (1) Chest pain Priority: Primary Status: Ruled-out Comments: [facility] with patent stent and minimal CAD. Acute cardiac etiology ruled out. Qualifiers: Chest pain type: chest pain due to myocardial ischemia Ischemic chest pain type: stable angina pectoris Qualified Code(s): I20.8 - Other forms of angina pectoris (2) Anxiety about health Priority: Secondary Status: Chronic (3) CAD (coronary artery disease) Priority: Secondary Status: Chronic Qualifiers: Coronary Disease-Associated Artery/Lesion type: [place] artery [place] vs. transplanted heart: [place] heart Associated angina: with stable angina Qualified Code(s): I25.118 - Atherosclerotic heart disease of [place] coronary artery with other forms of angina pectoris (4) Dyslipidemia Priority: Secondary Status: Chronic Comments: Lipid panel essentially unremarkable. Patient has a documented allergy to statin. We will defer to cardiology regarding medications. I spoke to the patient about a low-cholesterol diet but she readily admits that she likes [employer]. (5) History of atrial fibrillation Priority: Secondary Status: Chronic Comments: rate controlled; no anticoagulation therapy. Follow-up outpatient (6) Hypertension Priority: Secondary Status: Chronic Comments: Controlled, follow-up outpatient Qualifiers: Hypertension type: essential hypertension Qualified Code(s): I10 - Essential (primary) hypertension (7) Presence of stent in LAD coronary artery Priority: Secondary Status: Chronic Comments: Deemed patent on left heart catheter today (8) S/P laparoscopic cholecystectomy Priority: Secondary Status: Chronic (9) DVT prophylaxis Priority: Primary Status: Acute Comments: Subcutaneous Lovenox while admitted (10) Obesity (BMI 30-39.9) Priority: Secondary Status: Chronic - Discharge Medications Home Medications: Aspirin [Adult Low Dose Aspirin EC] 81 mg PO DAILY 06/03/15 [History] Loratadine [Claritin] 10 mg PO DAILY 01/04/16 [History] Fish Oil/Dha/Epa [Fish Oil 1,200 mg Fish Oil] 1,200 mg PO BID 01/05/16 [History] Albuterol Sulfate [Ventolin Hfa] 2 puff IH Q4H PRN 05/02/16 [History] Ascorbic Acid [Vitamin C] 500 mg PO DAILY 05/02/16 [History] Metoprolol [Lopressor] 12.5 mg PO BID #30 tablet 05/02/16 [Rx] Clopidogrel [Plavix] 75 mg PO DAILY #30 tablet 05/14/16 [Rx] Losartan Potassium [Cozaar] 25 mg PO BID 05/14/16 [History] Furosemide [Lasix] 20 mg PO DAILY 07/30/16 [History] Fluticasone Propionate Nasal [Flonase] 50 mcg NS BID 10/23/16 [History] Glycerin/Propylene Glycol [Artificial Tears Drops] 2 drop BOTH EYES BID [History] Pantoprazole Sodium [Protonix] 40 mg PO DAILY 10/23/16 [History] Ranitidine HCl [Heartburn Relief] 150 mg PO BID 10/23/16 [History] Famotidine [Pepcid] 20 mg PO BID tab 10/25/16 [Rx] Isosorbide MONOnitrate (24 HR) [Imdur] 30 mg PO DAILY #30 tab.er.24h 10/25/16 [ Rx] Latanoprost [Xalatan] 1 drop BOTH EYES HS 10/30/16 [History] Vitamin B Complex [B Complex] 1 each PO DAILY 10/30/16 [History] Allergies/Adverse Reactions: 3 Allergy/AdvReac Type Severity Reaction Status Date / Time atorvastatin Allergy See Verified 07/30/16 18:23 Comments cephalexin Allergy Rash Verified 07/30/16 18:23 ciprofloxacin Allergy Redness of Verified 07/30/16 18:23 Skin dextromethorphan Allergy Rash Verified 07/30/16 18:23 [From Capmist DM] doxycycline Allergy Redness of Verified 07/30/16 18:23 Skin guaifenesin [From Capmist DM] Allergy Rash Verified 07/30/16 18:23 Penicillins Allergy Redness of Verified 07/30/16 18:23 Skin pseudoephedrine Allergy Rash Verified 07/30/16 18:23 [From Capmist DM] Amoxicillin AdvReac Abdominal Verified 07/30/16 18:23 Pain Benzonatate AdvReac nausea/vomi Verified 07/30/16 18:23 [From Tessalon Perles] ting cetirizine AdvReac Insomnia Verified 07/30/16 18:23 hydrocodone [From Vicodin] AdvReac nausea/vomi Verified 07/30/16 18:23 ting meloxicam AdvReac Muscle Pain Verified 07/30/16 18:23 mometasone furoate AdvReac Nose Bleed Verified 07/30/16 18:23 [From Nasonex] nitrofurantoin AdvReac See Verified 07/30/16 18:23 Comments Oxycodone [From Percocet] AdvReac nausea/vomi Verified 07/30/16 18:23 ting pravastatin AdvReac Muscle Pain Verified 07/30/16 18:23 sulfamethoxazole AdvReac Weakness Verified 07/30/16 18:23 [From Bactrim] trimethoprim [From Bactrim] AdvReac Weakness Verified 07/30/16 18:23 Procedures/tests Complete & Pending: Procedures Performed prior 72 hours Category Date Time Status CL Cardiac Catheterization [CL] Routine Copywriter 10/31/16 11:02 Ordered Date of admission: 10/30/16 17:29 Primary care physician: Roopa Lambert CNP Consults: 10/30/16 19:00 Consult to Resaw Tailer [CONS] Routine Reason for SW Consult: poss need for home health? Lives with daughter. Re- admit Discharging clinician: Patricia Fair Anticipated date of discharge: 10/31/16 - Patient Status Disposition: Home, Self-Care Condition: Fair Functional capacity at discharge: independent ambulation Overall status at discharge: patient is back to baseline - Discharge Instructions Follow Up With: Roopa Lambert CNP [Primary Care Provider] - Silvio Bennett MD [Partnered Physician] - Additional Instructions: Follow-up with primary care provider within one to 2 weeks, follow-up with form grader as needed - Diet and Activity Activity: increase activity as tolerated Diet: low fat, low cholesterol, low salt diet Hospital course: Ms. Keyes is a 76 year old female with past medical history of hypertension, hyperlipidemia, COPD, CAD status post stent placement to the LAD in May 2016. Patient presented to the emergency department chief complaint of chest pain. Patient stating she has been having intermittent chest pain 2 weeks prior to presentation. Patient stating she was seen at her local hospital [facility] as well as at [facility] a couple days ago. She was scheduled for an outpatient left heart catheter next week but decided to come in because her chest pain had worsened. She describes the pain as sharp, accompanied by palpitations, located on the left side of her chest and lasts approximately 10- 20 minutes and comes and goes. Patient stating the pain was worse with activity but states she does have the pain at rest as well. She also endorsed shortness of breath, and episodes of lightheadedness and sweats. She denied headache, coughing, abdominal pain, diarrhea. She did endorse nausea but no vomiting. She denied fever or chills. Workup in the emergency department unremarkable. Chest x-ray negative. Patient was admitted to the hospitalist service for further evaluation and management. Troponin negative 3. Cardiology was brought on board who proceeded with a left heart catheter. Left heart catheter revealed a patent stent to her LAD and minimal CAD. She was cleared for outpatient follow-up with her primary form grader Dr. Bennett. Given that she has a history of recurrent biliary colic, abdominal labs were also checked during this admission and were all unremarkable except for a borderline elevated lipase at 80. Patient denied epigastric pain and was able to tolerate a regular diet while admitted. Regarding risk factor modification, patient is on optimal medical therapy. She does report a statin allergy. She was discharged home in stable condition with close outpatient follow-up recommended. ITS Impressions Chest X-Ray 10/30/16 15:20 IMPRESSION: No acute process. D/ / Sai Becerra MD / Sai Becerra MD Interpreting Provider: Sai Becerra MD - Time Spent with Patient Total time spent providing and/or coordinating discharge services: - Constitutional Vitals: Temp Pulse Resp BP Pulse Ox 97.8 F 58 16 105/63 95 10/31/16 17:00 10/31/16 17:00 10/31/16 17:00 10/31/16 17:00 10/31/16 17:00 General appearance: Present: A&O X 3, pleasant, no acute distress, answers questions appropriately - Head Head exam: Present: atraumatic, normocephalic - Eye Eye exam: Present: PERRL, conjuntiva pink, sclera anicteric Pupils: Present: PERRL - Neck Neck exam general surgery: Present: supple, trachea midline. Absent: lymphadenopathy - Respiratory Respiratory exam: Present: CTAB. Absent: accessory muscle use, rales, respiratory distress, rhonchi, wheezes - Cardiovascular Cardiovascular exam: Present: RRR, +S1, +S2. Absent: diastolic murmur, gallop, rubs, systolic murmur - GI/Abdominal GI/Abdominal exam: Present: normal bowel sounds, soft, no peritoneal signs. Absent: distended, tenderness - Extremities Exam Extremities exam: Present: warm, radial pulses palpable and symmetrical. Absent : calf tenderness, cyanotic, pedal edema - Neurological Exam Neurological exam: Present: alert, CN II-XII intact, normal gait, oriented X3, no focal deficits, strengths equal and symetr throughout. Absent: pronater drift, facial droop, speech deficit - Skin Skin exam: Present: dry, intact, normal color, warm
[2016-10-31] MEDS: Latanoprost 2.5 ML BOTTLE BOTH EYES SCH (20:19)
[2016-10-31 20:37] VITALS: BP 112/57
--- NOTE | 2016-11-02 08:31 | Invasive Diagnostic Lab Proc ---
Name: Selam Keyes Date of Study: 10/31/2016 Date: 1940 Ht: 64.2in Medical Record#: [id number] Age: 76 Wt: 178.57lb Gender: Female BSA: 1.87 Order #: [id number] BMI: 30.49 Physicians Procedure Physician: Zane Mckeon MD Referring MD: Roopa Lambert CNP Referring MD: Staff Name Position Time In Felipa Thomas RT (R) Monitor 03:18 PM Bushra Sabrina RT Scrub 03:18 PM Harish Guevara RN Washery Boss 03:18 PM Indications Indication Unstable Angina Procedures Performed Procedure CORONARY ARTERY ANGIO S&I Pre-Procedure Checklist Informed consent is complete signed and on chart. H&P is on chart. ID band is on and ID verified with patient. Patient NPO for procedure The procedure was described for the patient and questions were answered. Blood Pressure: 104/66 ECG is on chart. Rhythm: NSR Plan of Care Patient will tolerate the procedure without complications. Adequate level of comfort will be maintained. Hemodynamics will remain stable Patient will recover from procedure without complications. Respiratory function will be maintained. Cardiac rhythm will remain stable. Patient temperature will be maintained. Patient and/or family have verbalized understanding of the procedure. Patient Education Chief Complaint/Reason for Test: Cardiac Cath Developmental Category: Geriatric (65+ years) Developmentally Appropriate for Age: Yes Learning Barriers: None Education Needs: Procedure Education Method: Verbal Information Taught: Cardiac Cath Educational Evaluation: Able to repeat information Intravenous Access Time IV Size Location DC'd Fluid/Drip Rate Units RN 12:47 PM 20g 1 03/11" Patent On Arrival Rt Antecubital 0.9NaCl 25 ml/hr Harish Guevara RN Allergies Penicillin guaifenesin Penicillins Benzonatate acetaminophen Oxycodone hydrocodone Vital Signs Time BP (mmHg) HR (bpm) O2 Sat. RR (bpm) LOC 12:46 PM 104 / 66 55 96 % 16 5 = Fully awake and oriented or at pre-proc level 03:31 PM / % 5 = Fully awake and oriented or at pre-proc level 03:31 PM / % 4 = Oriented but drowsy 03:26 PM 136 / 64 60 97 % 6 03:31 PM 111 / 66 56 100 % 13 03:36 PM 116 / 61 54 100 % 13 03:41 PM 110 / 67 64 98 % 16 03:46 PM 119 / 53 60 98 % 24 03:51 PM 116 / 72 67 100 % 10 03:56 PM 121 / 55 64 95 % 18 Procedural Medications Time Medication Dose Units Method Given By 03:30 PM Oxygen 2 L/min nasal cannula Harish Guevara RN 03:28 PM Versed 1 mg Intravenous Harish Guevara RN 03:28 PM Fentanyl 50 mcg Intravenous Harish Guevara RN 03:37 PM Lidocaine 2% 2 ml Subcutaneous Zane Mckeon MD 03:38 PM Heparin 4000 units Nitroglycerin 200 mcg Verapamil 2.5 mg Intraarterial Zane Mckeon MD ASA Classification: CLASS II- Mild systemic disease (i.e. well-controlled diabetes, hypertension, asthma, cigarette smoking) Emily Score Preprocedure Postprocedure Activity 2- Moves 4 extremities sustained head lift Activity 2- Moves 4 extremities sustained head lift Circulation 2- SBP +/= 20 points of pre-anesthetic level Circulation 2- SBP +/= 20 points of pre-anesthetic level Consciousness 2- Awake and alert oriented x 3 Consciousness 2- Awake and alert oriented x 3 O2 Saturation 2- Able to maintain O2 satruation of 92% on room air O2 Saturation 2- Able to maintain O2 satruation of 92% on room air Respiratory 2- Able to deep breathe and cough well Respiratory 2- Able to deep breathe and cough well Total Score 10 Total Score 10 Contrast Agent: Isovue Diagnostic Contrast: 63 ml Total Contrast: 63 ml Fluoro Dose: 262 mGy Procedure Log Time Note Enter By 12:50 PM CathStat 03:17 PM Pt arrived to liaison inspection laboratory assistant 2 at 15:17 twilson 03:17 PM Physician arrived 15:17 twilson 03:17 PM Meet and greet completed twilson 03:17 PM Sign in performed according to hospital policy. twilson 03:17 PM Procedure start 15:17 twilson 03:17 PM ASA Class CLASS II- Mild systemic disease (i.e. well-controlled diabetes, hypertension, asthma, cigarette smoking) twilson 03:17 PM Patient charges- Angio tray pack, Navilyst 3mm J, Pulse Oximetry and ACIST tubing and transducer twilson 03:18 PM Case Delayed yes, previous stemi twilson 03:18 PM Felipa Thomas RT (R) Position: Monitor Time in: 15:18 twilson 03:18 PM Sabrina Tomlinson Position: Scrub Time in: 15:18 twilson 03:18 PM Harish Guevara RN Position: Washery Boss Time in: 15:18 twilson 03:25 PM Vitals capture started with the following parameters, Patient=Adult, Interval=5 min, Initial Dtvkqblt=564 mmHg, Deflation Rate=5 mmHg, Cuff placed on Right Arm 03:25 PM Recorded ECG: HR=62 Condition=Condition 1 03: PM HR=60 bpm, CTRE=082/64 mmhg, SpO2=97.0 %, Resp=6 B/min 03: PM Time: 15: Versed 1 mg Intravenous Given by Harish Guevara RN twmoisés : PM Time: 15: Fentanyl 50 mcg Intravenous Given by Harish Guevara RN twilson : PM Hair removed from procedure site in procedure lab using clippers. Right wrist prepped with Chloraprep by Felipa Thomas (R), safety strap applied then patient was draped. Skin intact. twilson 03:30 PM Hair removed from procedure site in procedure lab using clippers. Right groin prepped with Chloraprep by Felipa Thomas (R), safety strap applied then patient was draped. Skin intact. twilson 03: PM Time: 15:30 Oxygen on at 2 L/min per nasal cannula by Harish Guevara RN twilson : PM HR=56 bpm, GAZR=301/66 mmhg, PqA8=345.0 %, Resp=13 B/min 03:31 PM Time: 15:31 Patient comfortable and pain free: Yes twilson : PM Time: 15:31LOC: 5 = Fully awake and oriented or at pre-proc level twilson 03:36 PM Time out performed according to hospital policy twilson :36 PM HR=54 bpm, JCST=310/61 mmhg, BvE2=773.0 %, Resp=13 B/min 03:36 PM Pressure channel 3 zeroed. 03:37 PM Time: 15:37 2 ml Lidocaine 2% to right radial Subcutaneous Given by Zane Mckeon MD twilson 03:38 PM Access obtained by percutaneous puncture. 5Fr 10cm Terumo Glidesheath sheath placed in right Radial artery. [id number] twilson 03:39 PM Time: 15:38 Patient given 4,000 units Heparin, 200 mcg Nitroglycerin, and 2.5 mg Verapamil Intraarterial by Zane Mckeon MD twilson 03:39 PM 5Fr FR 4 catheter inserted over the wire [facility] twilson 03:40 PM J-wire removed, intact. twilson 03:40 PM 0.035 180cm Glidewire wire [id number] twilson 03:41 PM HR=64 bpm, CSDY=449/67 mmhg, SpO2=98.0 %, Resp=16 B/min 03:41 PM Glidewire removed, intact. twilson 03:42 PM RCA angiography performed in multiple views. twilson 03:42 PM Recorded Pressure: Ao, HR=63, Condition=Condition 1 (Aorta) Ao 102/66/83 03:43 PM J-wire reinserted. twilson 03:43 PM Catheter removed twilson 03:43 PM 5Fr FL3.5 catheter inserted over the wire [id number] twilson 03:44 PM Wire removed, intact. twilson 03:44 PM LCA angiography performed in multiple views. twilson 03:44 PM Recorded Pressure: Ao, HR=61, Condition=Condition 1 (Aorta) Ao 106/63/82 03:45 PM Recorded Pressure: Ao, HR=63, Condition=Condition 1 (Aorta) Ao 101/59/78 03:46 PM HR=60 bpm, ZNSH=711/53 mmhg, SpO2=98.0 %, Resp=24 B/min 03:46 PM Time: 15:31 Patient comfortable and pain free: Yes twilson 03:46 PM Time: 15:31LOC: 4 = Oriented but drowsy twilson 03:47 PM Lesion found in Proximal RCA. Pre Stenosis: 20 Pre GENOVEVA Flow: twilson 03:47 PM Lesion found in Mid RCA. Pre Stenosis: 20 Pre GENOVEVA Flow: twilson 03:47 PM Right Coronary, Right Posterior Descending Arteries with Right Posterolateral and Acute Marginal branches with 20 % stenosis. If graft is supplying this area, 0 % stenosis twilson 03:47 PM Recorded Pressure: Ao, HR=68, Condition=Condition 1 (Aorta) Ao 104/60/80 03:50 PM Wire reinserted twilson 03:50 PM Catheter and wire removed twilson 03:51 PM HR=67 bpm, EYZH=330/72 mmhg, UoZ9=182.0 %, Resp=10 B/min 03:51 PM Lesion found in Mid LAD. Pre Stenosis: 20 Pre GENOVEVA Flow: twilson 03:51 PM Mid/Distal Left Anterior Descending Coronary Artery and diagonal branches with 20% stenosis. If graft is supplying this area, 0 % stenosis twilson 03:56 PM HR=64 bpm, EZQJ=453/55 mmhg, SpO2=95.0 %, Resp=18 B/min 03:58 PM Procedure completed at 15:58 twilson 03:58 PM Sign out completed: Radiation Dose 262.12 mGy Fluoro Time: 2.3 Isovue 370 - 200ml contrast 63 ml given by Zane Mckeon MD. Complications: NoneCardiac Rehab Consult needed: NoConfirmed administered medications: Yes twilson 03:58 PM Isovue 370 - 200ml,1 Bottle(s) used. twilson 03:58 PM Arterial sheath pulled, Vasc Band closure device used and was Successful S/N. twilson 03:58 PM 18 ml air in Vasc Band. twilson 03:58 PM Post ECG Sinus Bradycardia twilson 03:58 PM Post Blood Pressure 121/55 twilson 03:58 PM 15:58 Post Pulses Bilateral DP & PT 2+ twilson 03:58 PM 15:58 Post Pulses Bilateral radial 2+ twilson 03:59 PM Information taught Cardiac Cath and Vasc Band twilson 03:59 PM Education needs Procedure, Plan of Care, and Responsibilities of Patient in Care twilson 03:59 PM Learning barriers :None twilson 03:59 PM Education Methods Verbal twilson 03:59 PM Education evaluation Able to repeat information twilson 04:00 PM Site status No bleeding/hematoma - Rt Wrist as reported by Sabrina Tomlinson RT at 15:59 twilson 04:00 PM Report given to Brandee ROMO Pt taken to 3B Room #46. 16:00 twilson 04:00 PM Delay to floor No twilson 04:00 PM Family placed in consult room. twilson 04:00 PM Vitals capture stopped. 04:01 PM Coronary Dominance: right twilson 04:05 PM Patient out of room: 16:05 twilson Complications Complication None Hemodynamics Pressures Site Systolic/A Wave Diastolic/V Wave Mean AO 102 66 83 AO 106 63 82 AO 101 59 78 AO 104 60 80 Post Procedure Information Blood Pressure: 121/55 mmHg Rhythm: Sinus Bradycardia Post procedural instructions were given Site Checks Time Location Status Staff Sheath In? Note 03:59 PM Rt Wrist No bleeding/hematoma Sabrina Tomlinson RT Pulses Time Site Pre-Procedure Post-Procedure Note 10/31/2016 12:44:00 PM Bilateral DP 2+ 10/31/2016 12:44:00 PM Bilateral radial 2+ 3:58:00 PM Bilateral DP & PT 2+ 3:58:00 PM Bilateral radial 2+ Updated by Felipa Thomas, RT (R) on 10/31/2016 4:02:14 PM electronically signed on 10/31/2016 4:02:40 PM with status of Final
--- NOTE | 2016-11-02 11:47 | Electrocardiograph Report ---
[facility] Test Date: 2016-10-30 Pat Name: Selam Keyes Department: 102 Room: 3B46 Gender: F Product Development Manager: [facility] : 1940 Requested By: Brandi See Order Number: [id number] Reading MD: Davis Hirsch MD Measurements Intervals [place] Rate: 54 P: 48 AL: 150 QRS: 33 QRSD: 102 T: 54 QT: 409 QTc: 396 Interpretive Statements SINUS BRADYCARDIA MINIMAL ST DEPRESSION [0.025+ mV ST DEPRESSION] WARNING: DATA QUALITY MAY AFFECT INTERPRETATION Electronically Signed On 11-02-2016 11:46:15 EDT by Davis Hirsch MD
== END 2016-10-31 20:39 | disposition home or self-care (01) ==
LOC: EMEROO 14:54 → 3BNU 14:54
PROVIDERS: ADMIT Internal Medicine; ATTEND Nurse Practitioner Family

== ENCOUNTER 2017-06-01 12:52 | Observation (INO) ==
--- NOTE | 2017-06-01 16:59 | Internal Med History&Physical ---
Date of Encounter: 06/01/17 Time of Encounter: 16:00 Assessment and Plan (1) Chest pain Current visit: No Status: Acute -Patient with exertional chest pain. -First set of cardiac biomarkers negative -Will monitor on telemetry and trend cardiac biomarkers -Will order nuclear medicine stress test for the morning ACS rule out Qualifiers: Chest pain type: unspecified Qualified Code(s): R07.9 - Chest pain, unspecified (2) Presence of stent in LAD coronary artery Current visit: No Status: Chronic -Will continue Plavix and aspirin (3) Hypertension Current visit: No Status: Chronic -Controlled; will continue beta paris and ARB Qualifiers: Hypertension type: essential hypertension Qualified Code(s): I10 - Essential (primary) hypertension (4) DVT prophylaxis Current visit: No Status: Acute Heparin subcutaneous Internal Medicine - H&P: HPI Chief complaint: Chest pain Admitted From: Home Plans for Post Hospital Care: Home History of present illness: Patient is a 76-year-old female with past medical history significant for coronary artery disease with drug-eluting stent in 2017, chronic atrial fibrillation, hypertension, hyperlipidemia and COPD who presents to the ER on with chest pain. Patient reports several weeks history of intermittent substernal chest discomfort which she describes a sharp with a severity of 10 out 10 rating up her left and right side of her neck. Patient reports exertion can provoke the pain and gets relief at rest. Patient does admit to increased stressors in the last several weeks as she has been depressed and anxious. Patient was taken to [place] [facility] where she was found to have first set of troponins that was negative. The decision was made however to transfer patient to [facility] further management and workup. Past Med Surg Social Fam HX - Past Medical History Medical history: arthritis, atrial fibrillation, COPD, coronary artery disease, GERD, glaucoma, hyperlipidemia, hypertension, osteoporosis, renal disease Psychiatric history: no psych history - Past Surgical History Surgical History: appendectomy, cataract, cholecystectomy, hysterectomy - Social History Smoking Status: Never smoker Smokeless Tobacco Status: No Alcohol use: none Drug use: none - Family History Brother Hx Family Cardiac Disorders: Yes Sister Living Status: Still Living Hx Family Cardiac Disorders: Yes Hx Family Respiratory Disorders: Yes (COPD) Hx Family Cancer: No Hx Family GI Disorders: Yes (GERD) Hx Family Endocrine Disorder: Yes Hx Family Neuromuscular Disorders: No Hx Family Neurologic Disorders: No Hx Family HEENT Disorders: No Hx Family Autoimmune Disorders: No Mother Living Status: Hx Family Cardiac Disorders: No Hx Family Respiratory Disorders: No Hx Family Cancer: No Hx Family GI Disorders: No Hx Family Endocrine Disorder: No Hx Family Neuromuscular Disorders: No Hx Family Neurologic Disorders: No Hx Family HEENT Disorders: No Hx Family Autoimmune Disorders: No Father Living Status: Hx Family Cardiac Disorders: No Hx Family Respiratory Disorders: No Hx Family Cancer: No Hx Family GI Disorders: No Hx Family Endocrine Disorder: No Hx Family Neuromuscular Disorders: No Hx Family Neurologic Disorders: No Hx Family HEENT Disorders: No Hx Family Autoimmune Disorders: No Internal Medicine - H&P: Meds Aspirin [Adult Low Dose Aspirin EC] 81 mg PO DAILY 06/03/15 [History] Loratadine [Claritin] 10 mg PO DAILY 01/04/16 [History] Fish Oil/Dha/Epa [Fish Oil 1,200 mg Fish Oil] 1,200 mg PO BID 01/05/16 [History] Ascorbic Acid [Vitamin C] 500 mg PO DAILY 05/02/16 [History] Metoprolol [Lopressor] 12.5 mg PO BID #30 tablet 05/02/16 [Rx] Clopidogrel [Plavix] 75 mg PO DAILY #30 tablet 05/14/16 [Rx] Losartan Potassium [Cozaar] 50 mg PO BID 05/14/16 [History] Furosemide [Lasix] 20 mg PO DAILY 07/30/16 [History] Fluticasone Propionate Nasal [Flonase] 50 mcg NS BID 10/23/16 [History] Pantoprazole Sodium [Protonix] 40 mg PO DAILY 10/23/16 [History] Ranitidine HCl [Heartburn Relief] 150 mg PO BID 10/23/16 [History] EPINEPHrine [Epipen] 0.3 mg IM ONCE PRN 05/13/17 [History] Meclizine HCl [Verticalm] 25 mg PO DAILY 05/13/17 [History] Psyllium Husk [Daily Fiber] 0.52 gm PO QAM 06/01/17 [History] Vitamin B Complex [B Complex] 1 tab PO DAILY 06/01/17 [History] 3 Allergy/AdvReac Type Severity Reaction Status Date / Time atorvastatin Allergy See Verified 06/01/17 15:14 Comments ciprofloxacin Allergy Redness of Verified 06/01/17 15:14 Skin dextromethorphan Allergy Rash Verified 06/01/17 15:14 [From Capmist DM] doxycycline Allergy Redness of Verified 06/01/17 15:14 Skin guaifenesin [From Capmist DM] Allergy Rash Verified 06/01/17 15:14 Penicillins Allergy Redness of Verified 06/01/17 15:14 Skin pseudoephedrine Allergy Rash Verified 06/01/17 15:14 [From Capmist DM] Amoxicillin AdvReac Abdominal Verified 06/01/17 15:14 Pain Benzonatate AdvReac nausea/vomi Verified 06/01/17 15:14 [From Tessalon Perles] ting cetirizine AdvReac Insomnia Verified 06/01/17 15:14 hydrocodone [From Vicodin] AdvReac nausea/vomi Verified 06/01/17 15:14 ting meloxicam AdvReac Muscle Pain Verified 06/01/17 15:14 mometasone furoate AdvReac Nose Bleed Verified 06/01/17 15:14 [From Nasonex] nitrofurantoin AdvReac See Verified 06/01/17 15:14 Comments Oxycodone [From Percocet] AdvReac nausea/vomi Verified 06/01/17 15:14 ting pravastatin AdvReac Muscle Pain Verified 06/01/17 15:14 sulfamethoxazole AdvReac Weakness Verified 06/01/17 15:14 [From Bactrim] trimethoprim [From Bactrim] AdvReac Weakness Verified 06/01/17 15:14 All Systems PM: A 10-system review of systems was performed and is negative for pertinent findings except as documented above in the HPI. - Constitutional Vitals: Temp Pulse Resp BP Pulse Ox 97.5 F L 63 16 146/75 100 06/01/17 14:46 06/01/17 14:46 06/01/17 14:46 06/01/17 14:46 06/01/17 14:46 General appearance: Present: A&O X 3, no acute distress - Head Head exam: Present: normocephalic - Eye Eye exam: Present: normal appearance - ENT ENT exam: Present: mucous membranes moist - Respiratory Respiratory exam: Present: CTAB. Absent: respiratory distress, wheezes - Cardiovascular Cardiovascular exam: Present: RRR - GI/Abdominal GI/Abdominal exam: Present: normal bowel sounds, soft, no peritoneal signs. Absent: distended, tenderness - Extremities Exam Extremities exam: Absent: pedal edema - Neurological Exam Neurological exam: Present: oriented X3 - Psychiatric Psychiatric exam: Present: anxious, depressed - Skin Skin exam: Present: normal color
[2017-06-01] MEDS ORDERED: Naloxone 0.4 MG/ML INJ IVP PRN (17:09)
[2017-06-01] MEDS ORDERED: Ondansetron 4 MG/2 ML VIAL IVP PRN (18:12)
[2017-06-01] MEDS ORDERED: Ondansetron 4 MG/2 ML VIAL IVP SCH (20:00)
[2017-06-01] MEDS: Fluticasone Propionate Nasal 50 MCG/SPRAY BOTTLE NS SCH (20:59)
[2017-06-01] MEDS ORDERED: Famotidine 20 MG TABLET PO SCH (21:00)
[2017-06-02] MEDS ORDERED: Acetaminophen 325 MG TABLET PO PRN (00:44)
[2017-06-02] MEDS: Famotidine 20 MG TABLET PO SCH ×2 (01:16→09:04)
[2017-06-02 04:47] LABS: Basophils % 0.3 %; Eosinophils # 0.1 K/mcL (0.0-0.6); Eosinophils % 1.2 %; Hematocrit 35.1 % (35.3-44.9); Immature Granulocytes % 0.5 % (0-4); Lymphocytes # 1.6 K/mcL (0.6-4.6); Lymphocytes % 26.5 %; Mean Corpuscular HGB Conc 34.2 g/dL (31.6-35.5); Mean Corpuscular Hemoglobin 29.2 pg (28.0-33.3); Mean Corpuscular Volume 85.4 fL (83.0-100.0); Mean Platelet Volume 9.3 fL (9.4-12.4); Monocytes # 0.4 K/mcL (0.0-1.3); Monocytes % 6.3 %; Platelet Count 171 K/mcL (140-400); Red Blood Count 4.11 M/mcL (3.82-4.97); Red Cell Distribution Width 12.9 % (11.5-14.5); Segmented Neutrophils % 65.2 %
[2017-06-02 05:29] LABS: BUN/Creatinine Ratio 19 (6-26); Blood Urea Nitrogen 14 mg/dL (8-23); Calcium 9.4 mg/dL (8.6-10.3); Carbon Dioxide 29 mEq/L (23-29); Glucose 109 mg/dL (70-105); eGFR For African Americans > 60 (> 60); eGFR For Non-African Americans > 60 (> 60)
[2017-06-02 05:41] LABS: Chloride 99 mEq/L (98-107); Osmolality,Calculated 279 (280-300); Potassium 4.1 mEq/L (3.5-5.1); Sodium 134 mEq/L (136-145)
[2017-06-02] MEDS ORDERED: Regadenoson 0.4 MG/5 ML SYRINGE IVP ONE (06:16)
[2017-06-02] MEDS ORDERED: Aspirin Enteric Coated 81 MG Tablet PO SCH (09:00)
[2017-06-02] MEDS ORDERED: Loratadine 10 MG TABLET PO SCH (09:00)
[2017-06-02] MEDS ORDERED: Psyllium 1 PACKET POWD.PACK PO SCH (09:00)
[2017-06-02] MEDS ORDERED: Furosemide 20 MG TABLET PO SCH (09:00)
[2017-06-02] MEDS: Fluticasone Propionate Nasal 50 MCG/SPRAY BOTTLE NS SCH (09:07)
[2017-06-02 11:50] VITALS: BP 124/67
--- NOTE | 2017-06-02 15:06 | Discharge Summary ---
- NOTES TO OUTPATIENT PROVIDER Notes to Outpatient Provider: Follow up with PCP in 2-3 days after discharge. Orders not resulted at time of discharge: Pending orders 06/02/17 06:00 NM kvng perf SPECT multi [NM] Routine Date of Encounter: 06/02/17 Time of Encounter: 15:03 - Discharge Diagnosis (1) Chest pain Priority: Primary Status: Resolved Qualifiers: Chest pain type: unspecified Qualified Code(s): R07.9 - Chest pain, unspecified (2) Hypertension Priority: Secondary Status: Chronic Qualifiers: Hypertension type: essential hypertension Qualified Code(s): I10 - Essential (primary) hypertension (3) Presence of stent in LAD coronary artery Priority: Secondary Status: Chronic (4) DVT prophylaxis Priority: Secondary Status: Acute Hospital course: Ms. Keyes is a 76 year old female admitted for chest pain. She was admitted for observation to general medical floor with telemetry. Cardiac enzymes trended negative x 3. Chest pain resolved the next day. She only has some LUQ pain, which is chronic in nature and she attributes to her hiatal hernia. She had stress test which showed no ischemia or infarct; no arrythmias, no chest pain, and EF > 70%. She will follow up with her PCP in 2-3 days after discharge. Patient has met maximum benefit of this hospitalization and will be discharged home in stable condition. Discharge discussed with: patient, nurse, other (Pharmacist) - Time Spent with Patient Total time spent providing and/or coordinating discharge services: Less than 30 minutes - Discharge Medications Home Medications: Aspirin [Adult Low Dose Aspirin EC] 81 mg PO DAILY 06/03/15 [History] Loratadine [Claritin] 10 mg PO DAILY 01/04/16 [History] Fish Oil/Dha/Epa [Fish Oil 1,200 mg Fish Oil] 1,200 mg PO BID 01/05/16 [History] Ascorbic Acid [Vitamin C] 500 mg PO DAILY 05/02/16 [History] Metoprolol [Lopressor] 12.5 mg PO BID #30 tablet 05/02/16 [Rx] Clopidogrel [Plavix] 75 mg PO DAILY #30 tablet 05/14/16 [Rx] Losartan Potassium [Cozaar] 50 mg PO BID 05/14/16 [History] Furosemide [Lasix] 20 mg PO DAILY 07/30/16 [History] Fluticasone Propionate Nasal [Flonase] 50 mcg NS BID 10/23/16 [History] Pantoprazole Sodium [Protonix] 40 mg PO DAILY 10/23/16 [History] Ranitidine HCl [Heartburn Relief] 150 mg PO BID 10/23/16 [History] EPINEPHrine [Epipen] 0.3 mg IM ONCE PRN 05/13/17 [History] Meclizine HCl [Verticalm] 25 mg PO DAILY 05/13/17 [History] Psyllium Husk [Daily Fiber] 0.52 gm PO QAM 06/01/17 [History] Vitamin B Complex [B Complex] 1 tab PO DAILY 06/01/17 [History] Allergies/Adverse Reactions: 3 Allergy/AdvReac Type Severity Reaction Status Date / Time atorvastatin Allergy See Verified 06/01/17 15:14 Comments ciprofloxacin Allergy Redness of Verified 06/01/17 15:14 Skin dextromethorphan Allergy Rash Verified 06/01/17 15:14 [From Capmist DM] doxycycline Allergy Redness of Verified 06/01/17 15:14 Skin guaifenesin [From Capmist DM] Allergy Rash Verified 06/01/17 15:14 Penicillins Allergy Redness of Verified 06/01/17 15:14 Skin pseudoephedrine Allergy Rash Verified 06/01/17 15:14 [From Capmist DM] Amoxicillin AdvReac Abdominal Verified 06/01/17 15:14 Pain Benzonatate AdvReac nausea/vomi Verified 06/01/17 15:14 [From Tesmark Ahn] ting cetirizine AdvReac Insomnia Verified 06/01/17 15:14 hydrocodone [From Vicodin] AdvReac nausea/vomi Verified 06/01/17 15:14 ting meloxicam AdvReac Muscle Pain Verified 06/01/17 15:14 mometasone furoate AdvReac Nose Bleed Verified 06/01/17 15:14 [From Nasonex] nitrofurantoin AdvReac See Verified 06/01/17 15:14 Comments Oxycodone [From Percocet] AdvReac nausea/vomi Verified 06/01/17 15:14 ting pravastatin AdvReac Muscle Pain Verified 06/01/17 15:14 sulfamethoxazole AdvReac Weakness Verified 06/01/17 15:14 [From Bactrim] trimethoprim [From Bactrim] AdvReac Weakness Verified 06/01/17 15:14 Date of admission: 06/01/17 14:10 Primary care physician: Roopa Lambert CNP Discharging clinician: Dalton Frank Anticipated date of discharge: 06/02/17 - Constitutional Vitals: Temp Pulse Resp BP Pulse Ox 97.7 F 65 17 124/67 97 06/02/17 11:48 06/02/17 11:48 06/02/17 11:48 06/02/17 11:48 06/02/17 11:48 General appearance: Present: cooperative, A&O X 3, pleasant, no acute distress, answers questions appropriately - Respiratory Respiratory exam: Present: CTAB. Absent: accessory muscle use, rales, rhonchi, wheezes Additional comments: Normal WOB - Cardiovascular Cardiovascular exam: Present: RRR, +S1, +S2. Absent: diastolic murmur, gallop, rubs, systolic murmur Additional comments: No BLE edema - GI/Abdominal GI/Abdominal exam: Present: normal bowel sounds, soft. Absent: distended, hepatomegaly, mass, splenomegaly, tenderness - Psychiatric Psychiatric exam: Present: normal affect, normal mood. Absent: anxious, depressed - Skin Skin exam: Present: dry, intact, warm. Absent: cyanosis, rash - Patient Status Disposition: Home, Self-Care Condition: Good Functional capacity at discharge: independent ambulation Overall status at discharge: patient is back to baseline - Discharge Instructions Follow Up With: Roopa Lambert CNP [Primary Care Provider] - Additional Instructions: Follow up with PCP in 2-3 days after discharge. - Diet and Activity Activity: resume usual activities as tolerated Diet: low fat, low cholesterol, low salt diet, other (Cardiac)
== END 2017-06-02 16:08 | disposition home or self-care (01) ==
LOC: 2ANU
PROVIDERS: ADMIT Hospitalist; ATTEND Internal Medicine

== ENCOUNTER 2018-04-10 10:32 | Observation (INO) ==
--- NOTE | 2018-04-10 10:54 | Emergency Department Note ---
Disposition Clinical Impression: Chest pain Qualifiers: Chest pain type: unspecified Qualified Code(s): R07.9 - Chest pain, unspecified Disposition: Admitted As Inpatient Time of Disposition: 11:41 General Adult HPI - General Chief complaint: ED Chest Pain Stated complaint: CP Time Seen by Provider: 04/10/18 10:34 - History of Present Illness HPI Narrative: Is a 77-year-old female with past medical history of coronary artery disease, renal disease, atrial fibrillation presents to the ED with chest pain. Patient has had stent placement in the past left anterior descending artery. This was performed 2016. She comes in today with 2 months of intermittent chest pain. She called the primary care provider who suggested a catheter in the past however she did not want to get that done at the time. States last night she had worsening chest pain. And woke up with worsening chest pain. Decided to come to the ED. Patient states pain starts in the center chest. Radiates to the back of her left shoulder. Sharp, constant, 10 out of 10. Not taking any medications to help. Patient also admits to palpitations. Notes to having chills but denies diaphoresis. Patient has been nauseous but has not vomited. some shortness of breath during the pain. Denies weight change, vision change, headache, abdominal pain, vomiting, diarrhea. Pain Scale: 10 - Related Data Home Medications Medication Instructions Recorded Confirmed Aspirin [Adult Low Dose Aspirin EC] 81 mg PO DAILY 06/03/15 06/01/17 Loratadine [Claritin] 10 mg PO DAILY 01/04/16 06/01/17 Fish Oil/Dha/Epa [Fish Oil 1,200 1,200 mg PO BID 01/05/16 06/01/17 mg Fish Oil] Ascorbic Acid [Vitamin C] 500 mg PO DAILY 05/02/16 06/01/17 Losartan Potassium [Cozaar] 50 mg PO DAILY 05/14/16 06/01/17 Furosemide [Lasix] 20 mg PO DAILY 07/30/16 06/01/17 Fluticasone Propionate Nasal 50 mcg NS BID 10/23/16 06/01/17 [Flonase] Pantoprazole Sodium [Protonix] 40 mg PO DAILY 10/23/16 06/01/17 Ranitidine HCl [Heartburn Relief] 150 mg PO BID 10/23/16 06/01/17 EPINEPHrine [Epipen] 0.3 mg IM ONCE PRN 05/13/17 06/01/17 Meclizine HCl [Verticalm] 25 mg PO DAILY 05/13/17 06/01/17 Psyllium Husk [Daily Fiber] 0.52 gm PO QAM 06/01/17 06/01/17 Vitamin B Complex [B Complex] 1 tab PO DAILY 06/01/17 06/01/17 Previous Rx's Medication Instructions Recorded Metoprolol [Lopressor] 12.5 mg PO BID #30 tablet 05/02/16 Clopidogrel [Plavix] 75 mg PO DAILY #30 tablet 05/14/16 Sucralfate [Carafate] 1 gm PO QIDAC #120 tablet 09/23/17 Allergies Allergy/AdvReac Type Severity Reaction Status Date / Time atorvastatin Allergy See Verified 09/23/17 13:30 Comments ciprofloxacin Allergy Redness of Verified 09/23/17 13:30 Skin dextromethorphan Allergy Rash Verified 09/23/17 13:30 [From Capmist DM] doxycycline Allergy Redness of Verified 09/23/17 13:30 Skin guaifenesin [From Capmist DM] Allergy Rash Verified 09/23/17 13:30 Penicillins Allergy Redness of Verified 09/23/17 13:30 Skin pseudoephedrine Allergy Rash Verified 09/23/17 13:30 [From Capmist DM] Amoxicillin AdvReac Abdominal Verified 09/23/17 13:30 Pain Benzonatate AdvReac nausea/vomi Verified 09/23/17 13:30 [From Raul Ahn] ting cetirizine AdvReac Insomnia Verified 09/23/17 13:30 hydrocodone [From Vicodin] AdvReac nausea/vomi Verified 09/23/17 13:30 ting meloxicam AdvReac Muscle Pain Verified 09/23/17 13:30 mometasone furoate AdvReac Nose Bleed Verified 09/23/17 13:30 [From Nasonex] nitrofurantoin AdvReac See Verified 09/23/17 13:30 Comments oxycodone [From Percocet] AdvReac nausea/vomi Verified 09/23/17 13:30 ting pravastatin AdvReac Muscle Pain Verified 09/23/17 13:30 sulfamethoxazole AdvReac Weakness Verified 09/23/17 13:30 [From Bactrim] trimethoprim [From Bactrim] AdvReac Weakness Verified 09/23/17 13:30 Constitutional: Reports: as per HPI Eyes: Reports: as per HPI ENT ED: Denies: congestion Cardiovascular: Reports: as per HPI Respiratory: Reports: as per HPI Gastrointestinal: Reports: as per HPI Genitourinary: Reports: as per HPI Musculoskeletal: Reports: arthralgia. Denies: myalgia Integumentary: Denies: rash Neurological: Reports: as per HPI Endocrine: Denies: polydipsia, polyuria Past Medical History - Past Medical History Medical history: Reports: arthritis, atrial fibrillation, COPD, coronary artery disease, GERD, glaucoma, hyperlipidemia, hypertension, osteoporosis, renal disease Surgical history: Reports: angioplasty/stent, appendectomy, cataract, cholecystectomy, hysterectomy Psychiatric history: Reports: no psych history SENIOR ADVISORY history: Reports: no SENIOR ADVISORY history - Social History Smoking Status: Never smoker Smokeless Tobacco Status: No Alcohol use: Reports: none Drug use: Reports: none Physical Exam laying in bed comfortably she is pleasant and conversational. - General General appearance: alert, in no apparent distress - Head Head exam: atraumatic, normocephalic - Eye Eye exam: Present: normal appearance, PERRL, EOMI - ENT ENT exam: normal exam, normal oropharynx, mucous membranes moist - Chest Chest inspection: Present: normal inspection, symmetric chest wall rise - Respiratory Respiratory exam: Present: normal lung sounds bilaterally - Cardiovascular Cardiovascular exam: Present: normal rhythm, irregular rhythm, normal heart sounds. Absent: systolic murmur, diastolic murmur - Abdominal Exam Abdominal exam: Present: soft, Non-Tender, normal bowel sounds - Extremities Exam Extremities exam: Present: normal inspection, pedal edema (1+ pitting edema). Absent: tenderness, calf tenderness - Neurological Exam Neurological exam: Present: alert - Psychiatric Psychiatric exam: Present: normal affect, normal mood - Skin Skin exam: Present: warm, dry, intact, normal color Course Vital Signs Temperature 98.2 F 04/10/18 10:41 Pulse Rate 64 04/10/18 10:41 Respiratory Rate 16 04/10/18 10:41 Blood Pressure 143/79 04/10/18 10:41 O2 Sat by Pulse Oximetry 100 04/10/18 10:41 Temperature 98.2 F 04/10/18 10:41 Pulse Rate 56 04/10/18 11:51 Respiratory Rate 16 04/10/18 11:51 Blood Pressure 131/65 04/10/18 11:51 O2 Sat by Pulse Oximetry 97 04/10/18 11:51 Oxygen Delivery Oxygen Delivery Room Air Medical Decision Making - MDM Narrative Medical decision making narrative: Patient suggested a catheter in the past. Comes in for non-ST segment elevation NH. Will get EKG, chest x-ray, labs and initial troponin. Patient will likely need admitted. ecg found sinus rhythm with minimal ST depression. Initial troponins were negative. Labs within normal limits. Due to patient's strong history and several risk factors patient likely need admitted for further cardiac workup. ASA ordered With Dr. francisco NAJERA he accepts for admission - Lab Data Result diagrams: 04/10/18 10:52 04/10/18 10:52 Lab Results 04/10/18 04/10/18 Range/Units 10:52 10:52 WBC 5.7 (4.3-11.1) K/mcL RBC 4.46 (3.82-4.97) M/mcL Hgb 13.2 (11.5-15.4) g/dL Hct 38.0 (35.3-44.9) % MCV 85.2 (83.0-100.0) fL MCH 29.6 (28.0-33.3) pg MCHC 34.7 (31.6-35.5) g/dL RDW 12.9 (11.5-14.5) % Plt Count 174 (140-400) K/mcL MPV 9.2 L (9.4-12.4) fL Immature Gran % 0.5 (0-4) % Seg Neutrophils % 63.8 % Lymphocytes % 24.9 % Monocytes % 8.5 % Eosinophils % 1.9 % Basophils % 0.4 % Neutrophils # 3.6 (1.6-8.9) K/mcL Lymphocytes # 1.4 (0.6-4.6) K/mcL Monocytes # 0.5 (0.0-1.3) K/mcL Eosinophils # 0.1 (0.0-0.6) K/mcL Basophils # 0.0 (0.0-0.2) K/mcL Sodium 135 L (136-145) mEq/L Potassium 4.3 (3.5-5.1) mEq/L Chloride 97 L (98-107) mEq/L Carbon Dioxide 30 H (23-29) mEq/L BUN 21 (8-23) mg/dL Creatinine 0.90 (0.60-1.20) mg/dL Est GFR ( Amer) > 60 (> 60) Est GFR (Non-Af Amer) > 60 (> 60) BUN/Creatinine Ratio 23 (6-26) Glucose 104 (70-105) mg/dL Calculated Osmolality 283 (280-300) Calcium 9.9 (8.6-10.3) mg/dL Troponin I < 0.03 (< 0.04) ng/mL
[2018-04-10 11:11] LABS: Basophils % 0.4 %; Eosinophils # 0.1 K/mcL (0.0-0.6); Eosinophils % 1.9 %; Hemoglobin 13.2 g/dL (11.5-15.4); Immature Granulocytes % 0.5 % (0-4); Lymphocytes # 1.4 K/mcL (0.6-4.6); Lymphocytes % 24.9 %; Mean Corpuscular HGB Conc 34.7 g/dL (31.6-35.5); Mean Corpuscular Hemoglobin 29.6 pg (28.0-33.3); Mean Corpuscular Volume 85.2 fL (83.0-100.0); Mean Platelet Volume 9.2 fL (9.4-12.4); Monocytes # 0.5 K/mcL (0.0-1.3); Monocytes % 8.5 %; Neutrophils # 3.6 K/mcL (1.6-8.9); Platelet Count 174 K/mcL (140-400); Red Blood Count 4.46 M/mcL (3.82-4.97); Red Cell Distribution Width 12.9 % (11.5-14.5); Segmented Neutrophils % 63.8 %
[2018-04-10 11:32] LABS: BUN/Creatinine Ratio 23 (6-26); Blood Urea Nitrogen 21 mg/dL (8-23); Calcium 9.9 mg/dL (8.6-10.3); Carbon Dioxide 30 mEq/L (23-29); Chloride 97 mEq/L (98-107); Glucose 104 mg/dL (70-105); Osmolality,Calculated 283 (280-300); Potassium 4.3 mEq/L (3.5-5.1); Sodium 135 mEq/L (136-145); Troponin I < 0.03 ng/mL (< 0.04); eGFR For Non-African Americans > 60 (> 60)
[2018-04-10] MEDS ORDERED: Aspirin 81 MG TAB.CHEW PO ONE (11:34)
[2018-04-10] MEDS ORDERED: Naloxone 0.4 MG/ML INJ IVP PRN (11:46)
[2018-04-10] MEDS ORDERED: Adenosine 90 MG/30 ML MLS IV ONE (12:00)
[2018-04-10] MEDS ORDERED: 0.9 % Sodium Chloride 1,000 ML IVC ONE (12:03)
--- NOTE | 2018-04-10 12:12 | Emergency Department Note ---
Disposition Clinical Impression: Chest pain Qualifiers: Chest pain type: unspecified Qualified Code(s): R07.9 - Chest pain, unspecified Disposition: Admitted As Inpatient General Adult HPI - General Chief complaint: ED Chest Pain Stated complaint: CP Time Seen by Provider: 04/10/18 10:34 - History of Present Illness Pain Scale: 10 - Related Data Home Medications Medication Instructions Recorded Confirmed Aspirin [Adult Low Dose Aspirin EC] 81 mg PO DAILY 06/03/15 06/01/17 Loratadine [Claritin] 10 mg PO DAILY 01/04/16 06/01/17 Fish Oil/Dha/Epa [Fish Oil 1,200 1,200 mg PO BID 01/05/16 06/01/17 mg Fish Oil] Ascorbic Acid [Vitamin C] 500 mg PO DAILY 05/02/16 06/01/17 Losartan Potassium [Cozaar] 50 mg PO BID 05/14/16 06/01/17 Furosemide [Lasix] 20 mg PO DAILY 07/30/16 06/01/17 Fluticasone Propionate Nasal 50 mcg NS BID 10/23/16 06/01/17 [Flonase] Pantoprazole Sodium [Protonix] 40 mg PO DAILY 10/23/16 06/01/17 Ranitidine HCl [Heartburn Relief] 150 mg PO BID 10/23/16 06/01/17 EPINEPHrine [Epipen] 0.3 mg IM ONCE PRN 05/13/17 06/01/17 Meclizine HCl [Verticalm] 25 mg PO DAILY 05/13/17 06/01/17 Psyllium Husk [Daily Fiber] 0.52 gm PO QAM 06/01/17 06/01/17 Vitamin B Complex [B Complex] 1 tab PO DAILY 06/01/17 06/01/17 Previous Rx's Medication Instructions Recorded Metoprolol [Lopressor] 12.5 mg PO BID #30 tablet 05/02/16 Clopidogrel [Plavix] 75 mg PO DAILY #30 tablet 05/14/16 Sucralfate [Carafate] 1 gm PO QIDAC #120 tablet 09/23/17 Allergies Allergy/AdvReac Type Severity Reaction Status Date / Time atorvastatin Allergy See Verified 09/23/17 13:30 Comments ciprofloxacin Allergy Redness of Verified 09/23/17 13:30 Skin dextromethorphan Allergy Rash Verified 09/23/17 13:30 [From Capmist DM] doxycycline Allergy Redness of Verified 09/23/17 13:30 Skin guaifenesin [From Capmist DM] Allergy Rash Verified 09/23/17 13:30 Penicillins Allergy Redness of Verified 09/23/17 13:30 Skin pseudoephedrine Allergy Rash Verified 09/23/17 13:30 [From Capmist DM] Amoxicillin AdvReac Abdominal Verified 09/23/17 13:30 Pain Benzonatate AdvReac nausea/vomi Verified 09/23/17 13:30 [From Tessalon Perles] ting cetirizine AdvReac Insomnia Verified 09/23/17 13:30 hydrocodone [From Vicodin] AdvReac nausea/vomi Verified 09/23/17 13:30 ting meloxicam AdvReac Muscle Pain Verified 09/23/17 13:30 mometasone furoate AdvReac Nose Bleed Verified 09/23/17 13:30 [From Nasonex] nitrofurantoin AdvReac See Verified 09/23/17 13:30 Comments oxycodone [From Percocet] AdvReac nausea/vomi Verified 09/23/17 13:30 ting pravastatin AdvReac Muscle Pain Verified 09/23/17 13:30 sulfamethoxazole AdvReac Weakness Verified 09/23/17 13:30 [From Bactrim] trimethoprim [From Bactrim] AdvReac Weakness Verified 09/23/17 13:30 Constitutional: Reports: as per HPI Eyes: Reports: as per HPI ENT ED: Denies: congestion Cardiovascular: Reports: as per HPI Respiratory: Reports: as per HPI Gastrointestinal: Reports: as per HPI Genitourinary: Reports: as per HPI Musculoskeletal: Reports: arthralgia. Denies: myalgia Integumentary: Denies: rash Neurological: Reports: as per HPI Endocrine: Denies: polydipsia, polyuria Past Medical History - Past Medical History Medical history: Reports: arthritis, atrial fibrillation, COPD, coronary artery disease, GERD, glaucoma, hyperlipidemia, hypertension, osteoporosis, renal disease Surgical history: Reports: angioplasty/stent, appendectomy, cataract, cholecystectomy, hysterectomy Psychiatric history: Reports: no psych history SENIOR DIRECTOR CREATIVE SERVICES history: Reports: no SENIOR DIRECTOR CREATIVE SERVICES history - Social History Smoking Status: Never smoker Smokeless Tobacco Status: No Alcohol use: Reports: none Drug use: Reports: none Physical Exam - General General appearance: alert, in no apparent distress Course Vital Signs Temperature 98.2 F 04/10/18 10:41 Pulse Rate 64 04/10/18 10:41 Respiratory Rate 16 04/10/18 10:41 Blood Pressure 143/79 04/10/18 10:41 O2 Sat by Pulse Oximetry 100 04/10/18 10:41 Temperature 98.2 F 04/10/18 10:41 Pulse Rate 56 04/10/18 11:51 Respiratory Rate 16 04/10/18 11:51 Blood Pressure 131/65 04/10/18 11:51 O2 Sat by Pulse Oximetry 97 04/10/18 11:51 Oxygen Delivery Oxygen Delivery Room Air Medical Decision Making - Lab Data Result diagrams: 04/10/18 10:52 04/10/18 10:52 Lab Results 04/10/18 04/10/18 Range/Units 10:52 10:52 WBC 5.7 (4.3-11.1) K/mcL RBC 4.46 (3.82-4.97) M/mcL Hgb 13.2 (11.5-15.4) g/dL Hct 38.0 (35.3-44.9) % MCV 85.2 (83.0-100.0) fL MCH 29.6 (28.0-33.3) pg MCHC 34.7 (31.6-35.5) g/dL RDW 12.9 (11.5-14.5) % Plt Count 174 (140-400) K/mcL MPV 9.2 L (9.4-12.4) fL Immature Gran % 0.5 (0-4) % Seg Neutrophils % 63.8 % Lymphocytes % 24.9 % Monocytes % 8.5 % Eosinophils % 1.9 % Basophils % 0.4 % Neutrophils # 3.6 (1.6-8.9) K/mcL Lymphocytes # 1.4 (0.6-4.6) K/mcL Monocytes # 0.5 (0.0-1.3) K/mcL Eosinophils # 0.1 (0.0-0.6) K/mcL Basophils # 0.0 (0.0-0.2) K/mcL Sodium 135 L (136-145) mEq/L Potassium 4.3 (3.5-5.1) mEq/L Chloride 97 L (98-107) mEq/L Carbon Dioxide 30 H (23-29) mEq/L BUN 21 (8-23) mg/dL Creatinine 0.90 (0.60-1.20) mg/dL Est GFR ( Amer) > 60 (> 60) Est GFR (Non-Af Amer) > 60 (> 60) BUN/Creatinine Ratio 23 (6-26) Glucose 104 (70-105) mg/dL Calculated Osmolality 283 (280-300) Calcium 9.9 (8.6-10.3) mg/dL Troponin I < 0.03 (< 0.04) ng/mL Attestation Statement - Attestation Attestation: I examined this patient and my medical decision-making was reviewed with the Resident Physician. I agree with the documented findings, disposition and treatment plan as described except to the extent set forth below. 77 year old female presents to the ED with complaints of chest pain and has a history of LAD stent. She is experiencing exertional dyspnea and mild chest pressure and feels as though she may be feeling her afib in her ears. troponin negative and non-ischemic ekg. We will admit to medicine iwith asa therapy and fluids. she is currently chest pain free
--- NOTE | 2018-04-10 13:18 | Internal Med History&Physical ---
Date of Encounter: 04/10/18 Time of Encounter: 12:30 Internal Medicine - H&P: HPI Chief complaint: Chest pain History of present illness: Ms. Keyes is a 77 year old female with pmh of CAD s/p stent, hypertension, dyslipidemia presenting with recurrent chest pain that has persisted for a couple of months and has gotten worse in the last week. Patient says she had a similar pain prior to getting a stent in 2017 and has been having recurrent chest pain since then. She describes the pain as pressure like 8/10, located in the left chest and radiating to the arms and jaw. Pain is associated with shortness of breath. She denies any fevers or chills or diarrhea. In the ER, first set of troponins were negative and she is being admitted for further management Past Med Surg Social Fam HX - Past Medical History Medical history: arthritis, atrial fibrillation, COPD, coronary artery disease, GERD, glaucoma, hyperlipidemia, hypertension, osteoporosis, renal disease Additional medical history: hiatal hernia, stage III kidney disease, lumbar OA/DDD, bladder prolapse, Afib, rectocele Psychiatric history: no psych history - Past Surgical History Surgical History: angioplasty/stent, appendectomy, cataract, cholecystectomy, hysterectomy Additional surgical history: hand surgery, colonoscopy, hernia repair, bladder procedure - Social History Smoking Status: Never smoker Smokeless Tobacco Status: No Alcohol use: none Drug use: none - Family History Brother Hx Family Cardiac Disorders: Yes Sister Living Status: Still Living Hx Family Cardiac Disorders: Yes Hx Family Respiratory Disorders: Yes (COPD) Hx Family Cancer: No Hx Family GI Disorders: Yes (GERD) Hx Family Endocrine Disorder: Yes Hx Family Neuromuscular Disorders: No Hx Family Neurologic Disorders: No Hx Family HEENT Disorders: No Hx Family Autoimmune Disorders: No Mother Living Status: Hx Family Cardiac Disorders: No Hx Family Respiratory Disorders: No Hx Family Cancer: No Hx Family GI Disorders: No Hx Family Endocrine Disorder: No Hx Family Neuromuscular Disorders: No Hx Family Neurologic Disorders: No Hx Family HEENT Disorders: No Hx Family Autoimmune Disorders: No Father Living Status: Hx Family Cardiac Disorders: No Hx Family Respiratory Disorders: No Hx Family Cancer: No Hx Family GI Disorders: No Hx Family Endocrine Disorder: No Hx Family Neuromuscular Disorders: No Hx Family Neurologic Disorders: No Hx Family HEENT Disorders: No Hx Family Autoimmune Disorders: No Internal Medicine - H&P: Meds Aspirin [Adult Low Dose Aspirin EC] 81 mg PO DAILY 06/03/15 [History] Loratadine [Claritin] 10 mg PO DAILY 01/04/16 [History] Fish Oil/Dha/Epa [Fish Oil 1,200 mg Fish Oil] 1,200 mg PO BID 01/05/16 [History] Ascorbic Acid [Vitamin C] 500 mg PO DAILY 05/02/16 [History] Metoprolol [Lopressor] 12.5 mg PO BID #30 tablet 05/02/16 [Rx] Losartan Potassium [Cozaar] 50 mg PO DAILY 05/14/16 [History] Furosemide [Lasix] 20 mg PO DAILY 07/30/16 [History] Fluticasone Propionate Nasal [Flonase] 50 mcg NS BID 10/23/16 [History] Pantoprazole Sodium [Protonix] 40 mg PO DAILY 10/23/16 [History] Ranitidine HCl [Heartburn Relief] 150 mg PO BID 10/23/16 [History] EPINEPHrine [Epipen] 0.3 mg IM ONCE PRN 05/13/17 [History] Meclizine HCl [Verticalm] 25 mg PO DAILY 05/13/17 [History] Psyllium Husk [Daily Fiber] 0.52 gm PO QAM 06/01/17 [History] Vitamin B Complex [B Complex] 1 tab PO DAILY 06/01/17 [History] Sucralfate [Carafate] 1 gm PO QIDAC #120 tablet 09/23/17 [Rx] Albuterol Sulfate [Albuterol Inhaler] 90 mcg IH PRN PRN 04/10/18 [History] Allergy/AdvReac Type Severity Reaction Status Date / Time atorvastatin Allergy See Verified 09/23/17 13:30 Comments ciprofloxacin Allergy Redness of Verified 09/23/17 13:30 Skin dextromethorphan Allergy Rash Verified 09/23/17 13:30 [From Capmist DM] doxycycline Allergy Redness of Verified 09/23/17 13:30 Skin guaifenesin [From Capmist DM] Allergy Rash Verified 09/23/17 13:30 Penicillins Allergy Redness of Verified 09/23/17 13:30 Skin pseudoephedrine Allergy Rash Verified 09/23/17 13:30 [From Capmist DM] Amoxicillin AdvReac Abdominal Verified 09/23/17 13:30 Pain Benzonatate AdvReac nausea/vomi Verified 09/23/17 13:30 [From Tessalon Perles] ting cetirizine AdvReac Insomnia Verified 09/23/17 13:30 hydrocodone [From Vicodin] AdvReac nausea/vomi Verified 09/23/17 13:30 ting meloxicam AdvReac Muscle Pain Verified 09/23/17 13:30 mometasone furoate AdvReac Nose Bleed Verified 09/23/17 13:30 [From Nasonex] nitrofurantoin AdvReac See Verified 09/23/17 13:30 Comments oxycodone [From Percocet] AdvReac nausea/vomi Verified 09/23/17 13:30 ting pravastatin AdvReac Muscle Pain Verified 09/23/17 13:30 sulfamethoxazole AdvReac Weakness Verified 09/23/17 13:30 [From Bactrim] trimethoprim [From Bactrim] AdvReac Weakness Verified 09/23/17 13:30 All Systems PM: A 10-system review of systems was performed and is negative for pertinent findings except as documented above in the HPI. - Constitutional Constitutional: no chills, no fever(s), no night sweats - EENT Eyes: no change in vision, no discharge, no pain, no photophobia Ears: no ear discharge, no ear pain, no tinnitus Nose, mouth and throat: no dysphagia, no nasal discharge, no neck pain, no sore throat - Cardiovascular Cardiovascular ROS IM: chest pain, dyspnea, no diaphoresis, no lightheadedness, no palpitations, no syncope - Respiratory Respiratory: dyspnea, no cough, no wheezing, no excessive phlegm production - Gastrointestinal Gastrointestinal: no abdominal pain, no diarrhea, no hematemesis, no hematochezia, no melena, no nausea, no vomiting - Genitourinary Genitourinary: no change in urinary stream, no dysuria, no flank pain, no hem aturia - Musculoskeletal Musculoskeletal ROS IM: no numbness, no tingling - Integumentary Integumentary IM: no rash, no unusual bruising - Neurological Neurological ROS: no confusion, no convulsions, no focal weakness, no numbness, no tingling, no tremor(s) - Hematologic/Lymphatic Hematologic/Lymphatic: no easy bruising - Constitutional Vitals: Temp Pulse Resp BP Pulse Ox 98.2 F 56 16 131/65 97 04/10/18 10:41 04/10/18 11:51 04/10/18 11:51 04/10/18 11:51 04/10/18 11:51 Exam: NAD - Head Head exam: Present: atraumatic, normocephalic - Eye Eye exam: Present: PERRL, conjuntiva pink, sclera anicteric Pupils: Present: PERRL - Neck Neck exam general surgery: Present: supple, trachea midline. Absent: lympha denopathy - Respiratory Respiratory exam: Present: CTAB. Absent: accessory muscle use, rales, rhonchi, wheezes - Cardiovascular Cardiovascular exam: Present: RRR, +S1, +S2. Absent: diastolic murmur, gallop, rubs, systolic murmur - GI/Abdominal GI/Abdominal exam: Present: normal bowel sounds, soft, no peritoneal signs. Absent: distended, tenderness - Extremities Exam Extremities exam: Present: warm, radial pulses palpable and symmetrical. Absent: calf tenderness, cyanotic, pedal edema - Neurological Exam Neurological exam: Present: CN II-XII intact, oriented X3, no focal deficits. Absent: pronater drift, facial droop, speech deficit - Skin Skin exam: Present: dry, intact Internal Med - H&P Results - Labs CBC & Chem 7: 04/10/18 10:52 04/10/18 10:52 Labs: Short CBC 04/10/18 Range/Units 10:52 WBC 5.7 (4.3-11.1) K/mcL Hgb 13.2 (11.5-15.4) g/dL Hct 38.0 (35.3-44.9) % Plt Count 174 (140-400) K/mcL Neutrophils # 3.6 (1.6-8.9) K/mcL BMP 04/10/18 10:52 Sodium 135 L Potassium 4.3 Chloride 97 L Carbon Dioxide 30 H BUN 21 Creatinine 0.90 Glucose 104 Calcium 9.9 Cardiac Enzymes 04/10/18 Range/Units 10:52 Troponin I < 0.03 (< 0.04) ng/mL - Impressions ITS Impressions Chest X-Ray 04/10/18 10:46 IMPRESSION: No acute process. D/ / Silverio Mcdaniel MD / Silverio Mcdaniel MD Interpreting Provider: Silverio Mcdaniel MD - Assessment and plan (1) Chest pain Current Visit: Yes Status: Acute Assessment and plan: Pt comes in with chest pain of a couple of days duration with prior CAD. Patient complains pain has been recurrent. She had a negative stress test in may. Will trend troponins, obtain 2D echo , cardiology consult in light of recurrent chest pain and CAD Qualifiers: Chest pain type: unspecified Qualified Code(s): R07.9 - Chest pain, unspecified (2) CAD (coronary artery disease) Current Visit: Yes Status: Acute Assessment and plan: Continue aspirin and plavix. Follow up 2D echo and cardiology recs Qualifiers: Coronary Disease-Associated Artery/Lesion type: [place] artery [place] vs. transplanted heart: [place] heart Associated angina: with stable angina Qualified Code(s): I25.118 - Atherosclerotic heart disease of [place] coronary artery with other forms of angina pectoris (3) Hypertension Current Visit: Yes Status: Acute Assessment and plan: Resume home meds with losartan and metoprolol Qualifiers: Hypertension type: essential hypertension Qualified Code(s): I10 - Essential (primary) hypertension (4) COPD (chronic obstructive pulmonary disease) Current Visit: Yes Status: Acute Assessment and plan: No acute exacerbation. Nebs PRN Qualifiers: Qualified Code(s): J44.9 - Chronic obstructive pulmonary disease, unspecified (5) DVT prophylaxis Current Visit: Yes Status: Acute Assessment and plan: Heparin sc - Time Spent With Patient Total time spent is greater than 50% in coordination of care (as documented) at patient's floor/unit and/or counseling patient:
[2018-04-10] MEDS ORDERED: Ipratropium/Albuterol Neb 3 ML IH PRN (13:47)
[2018-04-10] MEDS: Sucralfate 1 GM TABLET PO SCH ×2 (16:10→21:18)
[2018-04-10] MEDS: Famotidine 20 MG TABLET PO SCH (21:17)
[2018-04-10] MEDS: DHA PO SCH (21:18)
[2018-04-10] MEDS: FISH OIL PO SCH (21:18)
[2018-04-10] MEDS: EPA PO SCH (21:18)
[2018-04-11 03:37] LABS: Basophils % 0.7 %; Eosinophils # 0.2 K/mcL (0.0-0.6); Hematocrit 34.5 % (35.3-44.9); Immature Granulocytes % 0.2 % (0-4); Lymphocytes # 1.5 K/mcL (0.6-4.6); Lymphocytes % 35.9 %; Mean Corpuscular HGB Conc 33.3 g/dL (31.6-35.5); Mean Corpuscular Hemoglobin 28.7 pg (28.0-33.3); Mean Platelet Volume 9.3 fL (9.4-12.4); Monocytes # 0.4 K/mcL (0.0-1.3); Monocytes % 9.7 %; Neutrophils # 2.1 K/mcL (1.6-8.9); Platelet Count 143 K/mcL (140-400); Red Blood Count 4.01 M/mcL (3.82-4.97); Red Cell Distribution Width 13.1 % (11.5-14.5); Segmented Neutrophils % 49.5 %
[2018-04-11 03:38] LABS: Hemoglobin 11.5 g/dL (11.5-15.4)
[2018-04-11 03:58] LABS: BUN/Creatinine Ratio 20 (6-26); Blood Urea Nitrogen 20 mg/dL (8-23); Calcium 9.3 mg/dL (8.6-10.3); Carbon Dioxide 30 mEq/L (23-29); Chloride 99 mEq/L (98-107); Glucose 108 mg/dL (70-105); Osmolality,Calculated 281 (280-300); Phosphorous 3.2 mg/dL (2.7-4.5); Potassium 3.8 mEq/L (3.5-5.1); Sodium 134 mEq/L (136-145); eGFR For Non-African Americans 54 (> 60)
--- NOTE | 2018-04-11 10:02 | Pre-Sedation Evaluation ---
Pre-sedation evaluation - Pre-sedation checklist Date of procedure: 04/11/18 Procedure: left heart cath Recent Vitals: Last Vital Signs Temp 97.6 F 04/11/18 07:54 Pulse 60 04/11/18 07:54 Resp 13 04/11/18 07:54 BP 119/65 04/11/18 07:54 Pulse Ox 97 04/11/18 07:54 H&P (including ROS) documented in medical record: Yes Previous reaction to sedatives/anesthetics: No Dietary Status: NPO after Midnight Dentition: No loose teeth or bridges ASA Classification *see protocol: CLASS II-Mild systemic disease Cardiac Registry (Cardio Only) - Functional Capacity Functional Capacity: >=4 METS with symptoms - Clincal Frailty Scale Clinical Frailty Scale: Managing Well
--- NOTE | 2018-04-11 10:02 | Cardiology Consult Note ---
<FranMike elmore R - Last Filed: 04/11/18 10:11> Date of Encounter: 04/11/18 Time of Encounter: 09:58 Assessment and Plan (1) Chest pain Current Visit: Yes Status: Ruled-out Presents with chest pain concerning for unstable angina. Similar to prior anginal equivalent. Left sided chest pain radiating to left arm and jaw. Troponins negative x 4. No ischemic ECG changes. Hx CAD--LHC 05/2016 PTCA/GHULAM to pLAD. Negative nuclear stress test 05/2016. TTE EF preserved. Discussed LHC vs medical management. Pt would like to proceed with LHC. R/B/A discussed. Pt verbalizes understanding. Continue to follow. Qualifiers: Chest pain type: chest pain due to myocardial ischemia Ischemic chest pain type: stable angina pectoris Qualified Code(s): I20.8 - Other forms of angina pectoris (2) CAD (coronary artery disease) Current Visit: Yes Status: Acute Hx CAD, LHC 05/2016 PTCA/GHULAM to pLAD. Continue ASA, BB, ARB. Hospitalist started Plavix. Not on statin due to adverse reaction--muscle pain. Qualifiers: Coronary Disease-Associated Artery/Lesion type: [place] artery [place] vs. transplanted heart: [place] heart Associated angina: with stable angina Qualified Code(s): I25.118 - Atherosclerotic heart disease of [place] coronary artery with other forms of angina pectoris (3) History of atrial fibrillation Current Visit: No Status: Chronic Reported to have h/o brief afib caught on telemetry in the past. No recurrent events. 4 week event monitor in 2017 showed NSR, PAC and run of PAT. ECG on admission is sinus rhythm, although computer interpreted as A-Fib, incorrect. Continue BB. Not on AC given no recurrence. Continue ASA. Discussion w patient/family: The assessment and plan as outlined above was discussed with the patient and/or family members who expressed understanding and agreement. All questions were answered. Thank you for involving us in the care of your patient. Please call with any questions. I will discuss and review with Dr. Moreno and make changes as necessary. History of Present Illness Consult date: 04/11/18 Consult reason: Chest pain Chief complaint: chest pain History of present illness: Ms. Keyes is a 77 year old female with PMH of CAD s/p PCI to pLAD 05/2016, HTN, HLD presenting to ED with recurrent chest pain that has been intermittent for a couple of months and has gotten worse in the last week. She describes the pain as pressure like 8/10, located in the left chest and radiating to the left arm and jaw. Symptoms are similar to her prior anginal equivalent. Pain is associated with shortness of breath. Troponins negative x 4. No ECG changes. Intermittent chest pain this AM. TTE obtained--LVEF 60-65%. Mild LVDD. Normal RV structure and function. Mild AR. No evidence of phtn. Prior CV testing: Nuclear stress test 06/02/17: Perfusion imaging negative for ischemia or infarct. Gated EF >70%. LHC 05/14/16: Severe 1 vessel CAD. EF 65%. Successful PTCA/GHULAM to pLAD for severe 85% focal stenosis. Past Med Surg Social Fam HX - Past Medical History Medical history: arthritis, COPD, coronary artery disease, GERD, glaucoma, hyperlipidemia, hypertension, osteoporosis, renal disease Additional medical history: hiatal hernia, stage III kidney disease, lumbar OA/DDD, bladder prolapse, Afib, rectocele Psychiatric history: no psych history - Past Surgical History Surgical History: angioplasty/stent, appendectomy, cataract, cholecystectomy, hysterectomy Additional surgical history: hand surgery, colonoscopy, hernia repair, bladder procedure - Social History Smoking Status: Never smoker Smokeless Tobacco Status: No Alcohol use: none Drug use: none - Family History Brother Hx Family Cardiac Disorders: Yes Sister Living Status: Still Living Hx Family Cardiac Disorders: Yes Hx Family Respiratory Disorders: Yes (COPD) Hx Family Cancer: No Hx Family GI Disorders: Yes (GERD) Hx Family Endocrine Disorder: Yes Hx Family Neuromuscular Disorders: No Hx Family Neurologic Disorders: No Hx Family HEENT Disorders: No Hx Family Autoimmune Disorders: No Mother Living Status: Hx Family Cardiac Disorders: No Hx Family Respiratory Disorders: No Hx Family Cancer: No Hx Family GI Disorders: No Hx Family Endocrine Disorder: No Hx Family Neuromuscular Disorders: No Hx Family Neurologic Disorders: No Hx Family HEENT Disorders: No Hx Family Autoimmune Disorders: No Father Living Status: Hx Family Cardiac Disorders: No Hx Family Respiratory Disorders: No Hx Family Cancer: No Hx Family GI Disorders: No Hx Family Endocrine Disorder: No Hx Family Neuromuscular Disorders: No Hx Family Neurologic Disorders: No Hx Family HEENT Disorders: No Hx Family Autoimmune Disorders: No Medications and Allergies Loratadine [Claritin] 10 mg PO BID 01/04/16 [History] Fish Oil/Dha/Epa [Fish Oil 1,200 mg Fish Oil] 1,200 mg PO BID 01/05/16 [History] Ascorbic Acid [Vitamin C] 500 mg PO DAILY 05/02/16 [History] Losartan Potassium [Cozaar] 25 mg PO BID 05/14/16 [History] Fluticasone Propionate Nasal [Flonase] 1 spray NS BID PRN 10/23/16 [History] Pantoprazole Sodium [Protonix] 40 mg PO DAILY 10/23/16 [History] Ranitidine HCl [Heartburn Relief] 150 mg PO DAILY 10/23/16 [History] EPINEPHrine [Epipen] 0.3 mg IM ONCE PRN 05/13/17 [History] Meclizine HCl [Verticalm] 25 mg PO DAILY PRN 05/13/17 [History] Psyllium Husk [Daily Fiber] 0.52 gm PO DAILY 06/01/17 [History] Vitamin B Complex [B Complex] 1 tab PO DAILY 06/01/17 [History] Sucralfate [Carafate] 1 gm PO QIDAC #120 tablet 09/23/17 [Rx] Albuterol Sulfate [Albuterol Inhaler] 2 puff IH Q4H PRN 04/10/18 [History] Aspirin [Lo-Dose Aspirin EC] 81 mg PO DAILY 04/11/18 [History] Metoprolol [Lopressor] 12.5 mg PO BID 04/11/18 [History] Naproxen 500 mg PO BID PRN 04/11/18 [History] Allergy/AdvReac Type Severity Reaction Status Date / Time atorvastatin Allergy See Verified 09/23/17 13:30 Comments ciprofloxacin Allergy Redness of Verified 09/23/17 13:30 Skin dextromethorphan Allergy Rash Verified 09/23/17 13:30 [From Capmist DM] doxycycline Allergy Redness of Verified 09/23/17 13:30 Skin guaifenesin [From Capmist DM] Allergy Rash Verified 09/23/17 13:30 Penicillins Allergy Redness of Verified 09/23/17 13:30 Skin pseudoephedrine Allergy Rash Verified 09/23/17 13:30 [From Capmist DM] Amoxicillin AdvReac Abdominal Verified 09/23/17 13:30 Pain Benzonatate AdvReac nausea/vomi Verified 09/23/17 13:30 [From Tessalon Perles] ting cetirizine AdvReac Insomnia Verified 09/23/17 13:30 hydrocodone [From Vicodin] AdvReac nausea/vomi Verified 09/23/17 13:30 ting meloxicam AdvReac Muscle Pain Verified 09/23/17 13:30 mometasone furoate AdvReac Nose Bleed Verified 09/23/17 13:30 [From Nasonex] nitrofurantoin AdvReac See Verified 09/23/17 13:30 Comments oxycodone [From Percocet] AdvReac nausea/vomi Verified 09/23/17 13:30 ting pravastatin AdvReac Muscle Pain Verified 09/23/17 13:30 sulfamethoxazole AdvReac Weakness Verified 09/23/17 13:30 [From Bactrim] trimethoprim [From Bactrim] AdvReac Weakness Verified 09/23/17 13:30 All Systems Review: The remainder of the systems were reviewed and are negative - Cardiovascular Cardiovascular: as per HPI, chest pain at rest, chest pain with exertion, dyspnea at rest, dyspnea on exertion, radiating jaw, neck or arm pain - Respiratory Respiratory: dyspnea Physical Examination Vital Signs, Last 4 Hours Temp Pulse Resp BP Pulse Ox 04/11/18 07:54 97.6 F 60 13 119/65 97 Vital Signs Temp Pulse Resp BP Pulse Ox 04/11/18 07:54 97.6 F 60 13 119/65 97 04/11/18 04:56 97.7 F 57 14 129/72 97 04/10/18 23:36 97.7 F 58 14 118/68 97 04/10/18 20:15 98.1 F 61 14 109/57 98 04/10/18 16:21 97.9 F 65 15 108/51 95 04/10/18 11:51 56 16 131/65 97 04/10/18 10:41 98.2 F 64 16 143/79 100 Intake and Output 04/10/18 04/11/18 04/11/18 23:59 07:59 15:59 Other: # Voids 1 1 Weight 79.889 kg 78 kg Patient Weight 04/11/18 23:59 Weight 78 kg General: Conversant, No Apparent Distress HEENT: Atraumatic, Normocephaly, Mucus Membranes Moist Neck: No JVD, Normal carotid pulses Cardiac: Reg Rate and Rhythm, Normal S1 and S2, No Murmur Lungs: Normal Breath Sounds, No Wheeze, Rales, Rhonchi Neuro: Alert and responsive, No focal deficits noted Abdomen: Soft, Non-Tender Skin: No rashes noted on visualized skin Musculoskeletal: No Chest Wall Tenderness Extremities: No Clubbing, No Cyanosis, No Edema, Normal Pulses Results 04/11/18 03:18 04/11/18 03:18 Lab Results 04/10/18 04/10/18 04/10/18 10:52 10:52 15:50 WBC 5.7 Hgb 13.2 Hct 38.0 Plt Count 174 Sodium 135 L Potassium 4.3 Chloride 97 L Carbon Dioxide 30 H BUN 21 Creatinine 0.90 Glucose 104 Calcium 9.9 Magnesium Troponin I < 0.03 < 0.03 04/10/18 04/11/18 04/11/18 21:52 03:18 03:18 WBC 4.2 L Hgb 11.5 D Hct 34.5 L Plt Count 143 Sodium Potassium Chloride Carbon Dioxide BUN Creatinine Glucose Calcium Magnesium Troponin I < 0.03 < 0.03 04/11/18 03:18 WBC Hgb Hct Plt Count Sodium 134 L Potassium 3.8 Chloride 99 Carbon Dioxide 30 H BUN 20 Creatinine 0.99 Glucose 108 H Calcium 9.3 Magnesium 2.0 Troponin I Short CBC 04/11/18 04/10/18 Range/Units 03:18 10:52 WBC 4.2 L 5.7 (4.3-11.1) K/mcL Hgb 11.5 D 13.2 (11.5-15.4) g/dL Hct 34.5 L 38.0 (35.3-44.9) % Plt Count 143 174 (140-400) K/mcL Neutrophils # 2.1 3.6 (1.6-8.9) K/mcL BMP 04/11/18 04/10/18 Range/Units 03:18 10:52 Sodium 134 L 135 L (136-145) mEq/L Potassium 3.8 4.3 (3.5-5.1) mEq/L Chloride 99 97 L (98-107) mEq/L Carbon Dioxide 30 H 30 H (23-29) mEq/L BUN 20 21 (8-23) mg/dL Creatinine 0.99 0.90 (0.60-1.20) mg/dL Glucose 108 H 104 (70-105) mg/dL Calcium 9.3 9.9 (8.6-10.3) mg/dL Cardiac Enzymes 04/11/18 04/10/18 04/10/18 Range/Units 03:18 21:52 15:50 Troponin I < 0.03 < 0.03 < 0.03 (< 0.04) ng/mL 04/10/18 Range/Units 10:52 Troponin I < 0.03 (< 0.04) ng/mL Impressions Chest X-Ray 04/10/18 10:46 IMPRESSION: No acute process. D/ / Silverio Mcdaniel MD / Silverio Mcdaniel MD Interpreting Provider: Silverio Mcdaniel MD Echocardiogram 04/10/18 11:53 Impressions: LVEF 60-65%. Normal LV chamber size, wall thickness and function. Mild left ventricular diastolic dysfunction. Normal right ventricular structure and function. Mild aortic regurgitation. No evidence of pulmonary hypertension. Left Ventricular Wall Motion: Rest Echo Findings All wall segments showed normal motion. Findings: Study Quality * Technically adequate exam. ECG Findings * Normal sinus rhythm. Left Ventricle * LVEF 60-65%. * Normal LV chamber size, wall thickness and function. * Mild left ventricular diastolic dysfunction. Right Ventricle * Normal right ventricular structure and function. Left Atrium * Mildly dilated left atrium. Right Atrium * Normal right atrial size. Aortic Valve * Mildly calcified aortic valve leaflets. Number of leaflets cannot be determined. * Mild aortic regurgitation. * No aortic stenosis. Mitral Valve * Mildly thickened mitral valve leaflets. * Trace mitral regurgitation. * No mitral stenosis. Tricuspid Valve * Normal tricuspid valve structure and function. * Trace tricuspid regurgitation. * No evidence of pulmonary hypertension. Pulmonic Valve * Pulmonic valve is not well visualized. * No pulmonic regurgitation. Aorta * Normally sized aortic root. Pericardium * The pericardium appears normal. IVC * Normal IVC dimensions and inspiratory collapse. Pulmonary Artery * Normal visualized portions of the main pulmonary artery. Active Medications Albuterol/Ipratropium (Duoneb) 3 ml IH [id number] PRN PRN Reason: Dyspnea Stop: 10/10/18 13:48 Aspirin (Aspirin Ec) 81 mg PO DAILY [facility] Stop: 10/11/18 09:01 Clopidogrel Bisulfate (Plavix) 75 mg PO DAILY [facility] Stop: 10/11/18 09:01 Famotidine (Pepcid) 10 mg PO BID [facility] Stop: 10/10/18 21:01 Last Admin: 04/10/18 21:17 Dose: 10 mg Furosemide (Lasix) 20 mg PO DAILY [facility] Stop: 10/11/18 09:01 Losartan Potassium (Cozaar) 50 mg PO DAILY [facility] Stop: 10/11/18 09:01 Meclizine HCl (Antivert) 25 mg PO DAILY [facility] Stop: 10/11/18 09:01 Metoprolol Tartrate (Lopressor) 12.5 mg PO BID [facility] Stop: 10/10/18 21:01 Last Admin: 04/10/18 21:18 Dose: 12.5 mg Naloxone HCl (Narcan) 0.4 mg IVP Q2MIN PRN PRN Reason: SEE COMMENTS Stop: 10/10/18 11:47 Omeprazole (Prilosec) 20 mg PO DAILY@0630 [facility] Stop: 10/11/18 06:31 Last Admin: 04/11/18 05:05 Dose: 20 mg Pharmacy Profile Note (Patient Taking Own Medication) 1 each PO BID [facility] Stop: 10/10/18 21:01 Last Admin: 04/10/18 21:18 Dose: Not Given Sucralfate (Carafate) 1 gm PO QIDAC [facility] Stop: 10/10/18 16:31 Last Admin: 04/10/18 21:18 Dose: 1 gm Vitamin B Complex/Vit C/Vit E (Stresstab) 1 each PO DAILY [facility] Stop: 10/11/18 09:01 - Imaging and Cardiology Stress Test: report reviewed Echo: report reviewed Cardiac cath: report reviewed - EKG Interpretation EKG results cardiology: personally reviewed (SR, rate 60s), other (12 hr tele AVG HR 53, SR) Consult Discharge Plan - Plan Additional Instructions: [facility] has been arranged and will contact you in the next 24-48 hours to arrange admission date and time. Their contact number is #[phone]. Referrals: Roopa Lambert, [place] [Primary Care Provider] - (Follow up appointment has been requested. Office will call with date and time of appointment. ) <Erica Moreno - Last Filed: 04/11/18 16:49> Date of Encounter: 04/11/18 - Attending Attestation I examined this patient and my medical decision-making was reviewed with the SAFETY LEAD. I agree with the documented findings, disposition and treatment plan as described. Ms. Keyes presents with chest pain of unclear etiology. Reports occurring with and without exertion. States her outpatient [employer] System Admin told her she may need LHC. Known CAD and prior stenting with ongoing risk factors. LHC done today did not warrant intervention. Reports symptoms of possible "fluttering" may be secondary to dysrhythmia. Recommend outpatient monitor and follow up with primary web production manager. Continue medical therapy. Assessment and Plan Discussion w patient/family: The assessment and plan as outlined above was discussed with the patient and/or family members who expressed understanding and agreement. All questions were answered. Thank you for involving us in the care of your patient. Please call with any questions. History of Present Illness History of present illness: Ms. Keyes is a 77 year old female All Systems Review: The remainder of the systems were reviewed and are negative Physical Examination Vital Signs, Last 4 Hours Pulse Resp BP Pulse Ox 04/11/18 14:34 67 16 124/63 99 04/11/18 14:03 66 16 136/69 99 04/11/18 13:48 63 16 137/85 99 04/11/18 13:34 64 16 142/71 99 04/11/18 13:18 68 18 144/76 98 04/11/18 13:03 64 16 151/72 99 Results 04/11/18 03:18 04/11/18 03:18 Lab Results 04/10/18 04/11/18 04/11/18 21:52 03:18 03:18 WBC 4.2 L Hgb 11.5 D Hct 34.5 L Plt Count 143 Sodium Potassium Chloride Carbon Dioxide BUN Creatinine Glucose Calcium Magnesium Troponin I < 0.03 < 0.03 04/11/18 03:18 WBC Hgb Hct Plt Count Sodium 134 L Potassium 3.8 Chloride 99 Carbon Dioxide 30 H BUN 20 Creatinine 0.99 Glucose 108 H Calcium 9.3 Magnesium 2.0 Troponin I
[2018-04-11] MEDS ORDERED: *HR* FentaNYL (PF) 100 MCG/2 ML VIAL ONE (11:19)
[2018-04-11] MEDS ORDERED: *HR* Midazolam HCl 2 MG/2 ML VIAL ONE (11:19)
[2018-04-11] MEDS ORDERED: Heparin 1,000 UNITS/500 mL 500 ML ONE (11:19)
[2018-04-11] MEDS ORDERED: 0.9 % Sodium Chloride 2,000 ML ONE (11:19)
[2018-04-11] MEDS ORDERED: *HR* Heparin 10,000 UNIT/10 ML VIAL ONE (11:20)
[2018-04-11] MEDS ORDERED: ISOVUE-370 200 ML INFUS..BTL ONE ×3 (11:20→12:12)
[2018-04-11] MEDS ORDERED: Nitroglycerin 1,000 MCG/10 ML VIAL IV ONE (11:20)
--- NOTE | 2018-04-11 12:47 | Event Note ---
Date of Encounter: 04/11/18 Time of Encounter: 12:46 - Cardiology Event Note [facility] completed--40% in stent restenosis of pLAD stent. FFR not significant. No intervention. Medical management recommended. Final report pending. Continue ASA, Statin, BB. Will add Imdur 30mg daily. Cardiology signing off. Reconsult PRN. Will coordinate outpt follow-up in 3-[address] Bennett.
[2018-04-11] MEDS: Furosemide 20 MG TABLET PO SCH (13:23)
[2018-04-11] MEDS: Aspirin Enteric Coated 81 MG Tablet PO SCH (13:23)
[2018-04-11] MEDS: Sucralfate 1 GM TABLET PO SCH ×4 (13:23→21:20)
[2018-04-11] MEDS: EPA PO SCH ×2 (13:24→21:21)
[2018-04-11] MEDS: DHA PO SCH ×2 (13:24→21:21)
[2018-04-11] MEDS: FISH OIL PO SCH ×2 (13:24→21:21)
[2018-04-11] MEDS: Vitamin B Complex/Vit C/Vit E 1 EACH TABLET PO SCH (13:24)
[2018-04-11] MEDS: Isosorbide MONOnitrate (24 HR) 30 MG TAB.ER.24H PO SCH (13:24)
[2018-04-11] MEDS: Famotidine 20 MG TABLET PO SCH ×2 (13:24→21:20)
--- NOTE | 2018-04-11 15:03 | Internal Med Progress Note ---
<Mustapha Madison P - Last Filed: 04/11/18 15:17> Hospitalist Progress Note - Encounter Date of Encounter: 04/11/18 Time of Encounter: 11:00 - Subjective Interval History: Ms. Keyes is a 77 year old female with pmh of CAD s/p stent, hypertension, dyslipidemia presenting with recurrent chest pain that has persisted for a couple of months and has gotten worse in the last week. Patient says she had a similar pain prior to getting a stent in 2017 and has been having recurrent chest pain since then. She describes the pain as pressure like 8/10, located in the left chest and radiating to the arms and jaw. Pain is associated with s hortness of breath. Today during my visit, the patient was lying comfortably on the bed, not in acut e distress, she stated that chest pain is 4/10, better than before. Left heart catheterization was done today without any intervention. Cardiology team will follow up her in outpatient. Her vitals are stable, he stated that she is getting better since admission. We will plan to discharge her tomorrow after her cardiac status remains stable. - Exam Vitals: Temp Pulse Resp BP Pulse Ox 97.6 F 60 13 119/65 97 04/11/18 07:54 04/11/18 07:54 04/11/18 07:54 04/11/18 07:54 04/11/18 07:54 Exam: Gen: Alert, awake , Oriented to time,place and person Chest: Diminished BS b/l, No crackles, No rales, No wheezing Heart: S1S2+ RRR No Murmurs Abd: Soft, NT, BS + No organomegaly Ext: No edema, pulses are palpable, no tenderness Neuro: No focal neuro deficits Psych: Normal mood Skin: No rash - Assessment and Plan (1) Chest pain Current Visit: Yes Status: Acute Assessment and Plan: Patient presented with severe retrosternal chest pain. on and Of for last couple of days She has multiple risk factors with past CAD with stent 2016 She is on aspirin, Plavix, beta [place], JAMESON receptor [place]is Cardiac consultation has been done,[facility] completed--40% in stent restenosis of pLAD stent. FFR not significant. No intervention advised to Continue ASA, Statin, BB, Imdur 30mg daily. They will follow-up in outpatient after discharge. Her heart score :5 (2) CAD (coronary artery disease) Current Visit: Yes Status: Acute Assessment and Plan: The patient has history of coronary artery disease with stent placement in 2017 Left heart catheterization done today without any stent or intervention Echo: Infection fraction 60-65% with mild left ventricular diastolic dysfunction. She is already on aspirin, Plavix, metoprolol, losartan, into 30 MG has been added (3) Hypertension Current Visit: No Status: Chronic Assessment and Plan: She is a patient of essential hypertension Resumed home medication Her pressure 151/72 today We will closely monitor (4) History of atrial fibrillation Current Visit: No Status: Chronic Assessment and Plan: She has a history of proximal atrial fibrillation Now controlled rate, heart rate 64 (5) COPD (chronic obstructive pulmonary disease) Current Visit: Yes Status: Acute Assessment and Plan: She is a patient of COPD There is no exacerbation in this visit On nebulization, sat 99% room air - Time Spent with Patient Total time spent is greater than 50% in coordination of care (as documented) at patient's floor/unit and/or counseling patient: Internal Medicine: Result - Labs CBC & Chem 7: 04/11/18 03:18 04/11/18 03:18 Labs: Short CBC 04/11/18 Range/Units 03:18 WBC 4.2 L (4.3-11.1) K/mcL Hgb 11.5 D (11.5-15.4) g/dL Hct 34.5 L (35.3-44.9) % Plt Count 143 (140-400) K/mcL Neutrophils # 2.1 (1.6-8.9) K/mcL BMP 04/11/18 03:18 Sodium 134 L Potassium 3.8 Chloride 99 Carbon Dioxide 30 H BUN 20 Creatinine 0.99 Glucose 108 H Calcium 9.3 Cardiac Enzymes 04/10/18 04/10/18 04/11/18 Range/Units 15:50 21:52 03:18 Troponin I < 0.03 < 0.03 < 0.03 (< 0.04) ng/mL - Impressions Impressions Echocardiogram 04/10/18 11:53 Impressions: LVEF 60-65%. Normal LV chamber size, wall thickness and function. Mild left ventricular diastolic dysfunction. Normal right ventricular structure and function. Mild aortic regurgitation. No evidence of pulmonary hypertension. Left Ventricular Wall Motion: Rest Echo Findings All wall segments showed normal motion. Findings: Study Quality * Technically adequate exam. ECG Findings * Normal sinus rhythm. Left Ventricle * LVEF 60-65%. * Normal LV chamber size, wall thickness and function. * Mild left ventricular diastolic dysfunction. Right Ventricle * Normal right ventricular structure and function. Left Atrium * Mildly dilated left atrium. Right Atrium * Normal right atrial size. Aortic Valve * Mildly calcified aortic valve leaflets. Number of leaflets cannot be determined. * Mild aortic regurgitation. * No aortic stenosis. Mitral Valve * Mildly thickened mitral valve leaflets. * Trace mitral regurgitation. * No mitral stenosis. Tricuspid Valve * Normal tricuspid valve structure and function. * Trace tricuspid regurgitation. * No evidence of pulmonary hypertension. Pulmonic Valve * Pulmonic valve is not well visualized. * No pulmonic regurgitation. Aorta * Normally sized aortic root. Pericardium * The pericardium appears normal. IVC * Normal IVC dimensions and inspiratory collapse. Pulmonary Artery * Normal visualized portions of the main pulmonary artery. Consult Discharge Plan - Plan Additional Instructions: [facility] has been arranged and will contact you in the next 24-48 hours to arrange admission date and time. Their contact number is #[phone]. Referrals: Roopa Lambert PLASTERER SPR[employer]UN [Primary Care Provider] - (Follow up appointment has been requested. Office will call with date and time of appointment. ) <Ale Matos - Last Filed: 04/11/18 15:43> Hospitalist Progress Note - Encounter Date of Encounter: 04/11/18 - Exam Vitals: Temp Pulse Resp BP Pulse Ox 97.6 F 67 16 124/63 99 04/11/18 07:54 04/11/18 14:34 04/11/18 14:34 04/11/18 14:34 04/11/18 14:34 - Assessment and Plan (1) Hypertension Current Visit: Yes Status: Acute (2) DVT prophylaxis Current Visit: Yes Status: Acute (3) CAD (coronary artery disease) Current Visit: Yes Status: Acute (4) Chest pain Current Visit: Yes Status: Acute (5) COPD (chronic obstructive pulmonary disease) Current Visit: Yes Status: Acute - Time Spent with Patient Total time spent is greater than 50% in coordination of care (as documented) at patient's floor/unit and/or counseling patient: Internal Medicine: Result - Labs CBC & Chem 7: 04/11/18 03:18 04/11/18 03:18 Labs: Short CBC 04/11/18 Range/Units 03:18 WBC 4.2 L (4.3-11.1) K/mcL Hgb 11.5 D (11.5-15.4) g/dL Hct 34.5 L (35.3-44.9) % Plt Count 143 (140-400) K/mcL Neutrophils # 2.1 (1.6-8.9) K/mcL BMP 04/11/18 03:18 Sodium 134 L Potassium 3.8 Chloride 99 Carbon Dioxide 30 H BUN 20 Creatinine 0.99 Glucose 108 H Calcium 9.3 Cardiac Enzymes 04/10/18 04/10/18 04/11/18 Range/Units 15:50 21:52 03:18 Troponin I < 0.03 < 0.03 < 0.03 (< 0.04) ng/mL - Impressions Impressions Echocardiogram 04/10/18 11:53 Impressions: LVEF 60-65%. Normal LV chamber size, wall thickness and function. Mild left ventricular diastolic dysfunction. Normal right ventricular structure and function. Mild aortic regurgitation. No evidence of pulmonary hypertension. Left Ventricular Wall Motion: Rest Echo Findings All wall segments showed normal motion. Findings: Study Quality * Technically adequate exam. ECG Findings * Normal sinus rhythm. Left Ventricle * LVEF 60-65%. * Normal LV chamber size, wall thickness and function. * Mild left ventricular diastolic dysfunction. Right Ventricle * Normal right ventricular structure and function. Left Atrium * Mildly dilated left atrium. Right Atrium * Normal right atrial size. Aortic Valve * Mildly calcified aortic valve leaflets. Number of leaflets cannot be determined. * Mild aortic regurgitation. * No aortic stenosis. Mitral Valve * Mildly thickened mitral valve leaflets. * Trace mitral regurgitation. * No mitral stenosis. Tricuspid Valve * Normal tricuspid valve structure and function. * Trace tricuspid regurgitation. * No evidence of pulmonary hypertension. Pulmonic Valve * Pulmonic valve is not well visualized. * No pulmonic regurgitation. Aorta * Normally sized aortic root. Pericardium * The pericardium appears normal. IVC * Normal IVC dimensions and inspiratory collapse. Pulmonary Artery * Normal visualized portions of the main pulmonary artery. - Attending Attestation I examined this patient and my medical decision-making was reviewed with the Res ident Physician Dr. Madison. I agree with the documented findings, disposition and treatment plan as described except to the extent set forth below. Ms. Keyes is a 77 year old female with PMH of CAD s/p PCI to pLAD 05/2016, HTN, HLD presenting to ED with recurrent chest pain that has been intermittent for a couple of months and has gotten worse in the last week. Chest pain is more like a pressure 8 out 10 in severity located at left chest wall region radiating to her left arm. She was admitted in the hospital and placed on manager cardiac. Her serial troponin came back is negative. She was evaluated by novelty twister tender who did left heart catheterization today showed 40% in stent restenosis of pLAD stent, no intervention recommended. At this point cardiology recommend medical management with ASA, Statin annd BB, also added Imdur 30mg. patient still complaining about some chest discomfort 4 out of 10 now. Continue close monitoring for now. Chest: Diminished BS b/l No wheezing heart: S1S2+ RRR No murmurs <DhungJanet yaneza P - Last Filed: 04/11/18 15:17> (2) CAD (coronary artery disease) Qualifiers: Coronary Disease-Associated Artery/Lesion type: [place] artery [place] vs. transplanted heart: [place] heart Associated angina: with stable angina Qualified Code(s): I25.118 - Atherosclerotic heart disease of [place] coronary artery with other forms of angina pectoris (3) Hypertension Qualifiers: Hypertension type: essential hypertension Qualified Code(s): I10 - Essential (primary) hypertension (5) COPD (chronic obstructive pulmonary disease) Qualifiers: Qualified Code(s): J44.9 - Chronic obstructive pulmonary disease, unspecified <Ale Matos - Last Filed: 04/11/18 15:43> (1) Hypertension Qualifiers: Hypertension type: essential hypertension Qualified Code(s): I10 - Essential (primary) hypertension (3) CAD (coronary artery disease) Qualifiers: Coronary Disease-Associated Artery/Lesion type: [place] artery [place] vs. transplanted heart: [place] heart Associated angina: with stable angina Qualified Code(s): I25.118 - Atherosclerotic heart disease of [place] coronary artery with other forms of angina pectoris (4) Chest pain Qualifiers: Chest pain type: unspecified Qualified Code(s): R07.9 - Chest pain, unspecified (5) COPD (chronic obstructive pulmonary disease) Qualifiers: Qualified Code(s): J44.9 - Chronic obstructive pulmonary disease, unspecified
[2018-04-12 05:30] LABS: BUN/Creatinine Ratio 28 (6-26); Blood Urea Nitrogen 22 mg/dL (8-23); Calcium 9.2 mg/dL (8.6-10.3); Carbon Dioxide 27 mEq/L (23-29); Chloride 99 mEq/L (98-107); Glucose 101 mg/dL (70-105); Osmolality,Calculated 279 (280-300); Potassium 3.7 mEq/L (3.5-5.1); Sodium 133 mEq/L (136-145); eGFR For Non-African Americans > 60 (> 60)
[2018-04-12 07:10] VITALS: BP 103/49
[2018-04-12] MEDS: Vitamin B Complex/Vit C/Vit E 1 EACH TABLET PO SCH (08:10)
[2018-04-12] MEDS: Isosorbide MONOnitrate (24 HR) 30 MG TAB.ER.24H PO SCH (08:10)
[2018-04-12] MEDS: Sucralfate 1 GM TABLET PO SCH (08:10)
[2018-04-12] MEDS: Furosemide 20 MG TABLET PO SCH (08:11)
[2018-04-12] MEDS: FISH OIL PO SCH (08:11)
[2018-04-12] MEDS: Aspirin Enteric Coated 81 MG Tablet PO SCH (08:11)
[2018-04-12] MEDS: Famotidine 20 MG TABLET PO SCH (08:11)
[2018-04-12] MEDS: DHA PO SCH (08:11)
[2018-04-12] MEDS: EPA PO SCH (08:11)
--- NOTE | 2018-04-12 09:09 | Discharge Summary ---
<Mustapha Madison P - Last Filed: 04/12/18 09:53> - NOTES TO OUTPATIENT PROVIDER Notes to Outpatient Provider: Patient will follow up with primary care provider within a week. She will follow-up with power supply engineer in 23 weeks. We have added Imdur 30 MG daily as per cardiac advice. Orders not resulted at time of discharge: Pending orders 04/11/18 14:19 ECG 48 holter monitor setup [ECG] Routine Date of Encounter: 04/12/18 Time of Encounter: 08:45 - Discharge Diagnosis (1) Chest pain Priority: Primary Status: Acute Qualifiers: Chest pain type: chest pain due to myocardial ischemia Ischemic chest pain type: unstable angina pectoris Qualified Code(s): I20.0 - Unstable angina (2) CAD (coronary artery disease) Priority: Primary Status: Acute Qualifiers: Coronary Disease-Associated Artery/Lesion type: [place] artery [place] vs. transplanted heart: [place] heart Associated angina: with stable angina Qualified Code(s): I25.118 - Atherosclerotic heart disease of [place] coronary artery with other forms of angina pectoris (3) Hypertension Priority: Secondary Status: Chronic Qualifiers: Hypertension type: essential hypertension Qualified Code(s): I10 - Essential (primary) hypertension (4) History of atrial fibrillation Priority: Secondary Status: Chronic (5) COPD (chronic obstructive pulmonary disease) Priority: Secondary Status: Chronic Qualifiers: Qualified Code(s): J44.9 - Chronic obstructive pulmonary disease, unspecified Hospital course: Ms. Keyes is a 77 year old female with past medical history of CAD s/p stent, hypertension, hyperlipidemia,presenting with recurrent chest pain that has persisted for a couple of months and has gotten worse in the last week. Patient says she had a similar pain prior to getting a stent in 2017 and has been having recurrent chest pain since then. She describes the pain as pressure like 8/10, located in the left chest and radiating to the arms and jaw. Pain is associated with shortness of breath. Chest x-ray done in ED did not show any infection or infiltration, echocardiogram showed ejection fraction 6065 percent with mild left ventricular diastolic dysfunction. Serial troponin was negative and EKG did not show any evidence of ST or T changes. She was admitted for close cardiac monitoring and further workup for chest pain. While she was in inpatient cardiac consultation was done, power supply engineer plan for left heart catheterization that showed 50% stenosis in oximetry LAD and minimal stenosis in RCA. Cardiology team did not do any active intervention and they will follow-up in outpatient. The patient is significantly improving, her chest pain is 0/10 , no nausea ,vomiting, no shortness of breath, vitals stable. We are planning to discharge her home and she will follow-up with her primary care provider within a week and her power supply engineer within 2/3 weeks. - Time Spent with Patient Total time spent providing and/or coordinating discharge services: - Discharge Medications Prescriptions: Aspirin Enteric Coated [Aspirin EC] 81 mg PO DAILY #30 tablet. Clopidogrel [Plavix] 75 mg PO DAILY #30 tablet Furosemide [Lasix] 20 mg PO DAILY #30 tablet Isosorbide MONOnitrate (24 HR) [Imdur] 30 mg PO DAILY #30 tab.er.24h Metoprolol [Lopressor] 12.5 mg PO BID #30 tablet Home Medications: Loratadine [Claritin] 10 mg PO BID 01/04/16 [History] Fish Oil/Dha/Epa [Fish Oil 1,200 mg Fish Oil] 1,200 mg PO BID 01/05/16 [History] Ascorbic Acid [Vitamin C] 500 mg PO DAILY 05/02/16 [History] Losartan Potassium [Cozaar] 25 mg PO BID 05/14/16 [History] Fluticasone Propionate Nasal [Flonase] 1 spray NS BID PRN 10/23/16 [History] Pantoprazole Sodium [Protonix] 40 mg PO DAILY 10/23/16 [History] Ranitidine HCl [Heartburn Relief] 150 mg PO DAILY 10/23/16 [History] EPINEPHrine [Epipen] 0.3 mg IM ONCE PRN 05/13/17 [History] Meclizine HCl [Verticalm] 25 mg PO DAILY PRN 05/13/17 [History] Psyllium Husk [Daily Fiber] 0.52 gm PO DAILY 06/01/17 [History] Vitamin B Complex [B Complex] 1 tab PO DAILY 06/01/17 [History] Sucralfate [Carafate] 1 gm PO QIDAC #120 tablet 09/23/17 [Rx] Albuterol Sulfate [Albuterol Inhaler] 2 puff IH Q4H PRN 04/10/18 [History] Aspirin [Lo-Dose Aspirin EC] 81 mg PO DAILY 04/11/18 [History] Metoprolol [Lopressor] 12.5 mg PO BID 04/11/18 [History] Naproxen 500 mg PO BID PRN 04/11/18 [History] Aspirin Enteric Coated [Aspirin EC] 81 mg PO DAILY #30 tablet. 04/12/18 [Rx] Clopidogrel [Plavix] 75 mg PO DAILY #30 tablet 04/12/18 [Rx] Furosemide [Lasix] 20 mg PO DAILY #30 tablet 04/12/18 [Rx] Isosorbide MONOnitrate (24 HR) [Imdur] 30 mg PO DAILY #30 tab.er.24h 04/12/18 [Rx] Metoprolol [Lopressor] 12.5 mg PO BID #30 tablet 04/12/18 [Rx] Allergies/Adverse Reactions: Allergy/AdvReac Type Severity Reaction Status Date / Time atorvastatin Allergy See Verified 09/23/17 13:30 Comments ciprofloxacin Allergy Redness of Verified 09/23/17 13:30 Skin dextromethorphan Allergy Rash Verified 09/23/17 13:30 [From Capmist DM] doxycycline Allergy Redness of Verified 09/23/17 13:30 Skin guaifenesin [From Capmist DM] Allergy Rash Verified 09/23/17 13:30 Penicillins Allergy Redness of Verified 09/23/17 13:30 Skin pseudoephedrine Allergy Rash Verified 09/23/17 13:30 [From Capmist DM] Amoxicillin AdvReac Abdominal Verified 09/23/17 13:30 Pain Benzonatate AdvReac nausea/vomi Verified 09/23/17 13:30 [From Tessalon Perles] ting cetirizine AdvReac Insomnia Verified 09/23/17 13:30 hydrocodone [From Vicodin] AdvReac nausea/vomi Verified 09/23/17 13:30 ting meloxicam AdvReac Muscle Pain Verified 09/23/17 13:30 mometasone furoate AdvReac Nose Bleed Verified 09/23/17 13:30 [From Nasonex] nitrofurantoin AdvReac See Verified 09/23/17 13:30 Comments oxycodone [From Percocet] AdvReac nausea/vomi Verified 09/23/17 13:30 ting pravastatin AdvReac Muscle Pain Verified 09/23/17 13:30 sulfamethoxazole AdvReac Weakness Verified 09/23/17 13:30 [From Bactrim] trimethoprim [From Bactrim] AdvReac Weakness Verified 09/23/17 13:30 Date of admission: 04/10/18 11:59 Primary care physician: Roopa Lambert CNP Consults: 04/10/18 12:28 Consult to Cardiology [CONS] Routine Comment: Consulting Provider: Cardiology [facility] Reason for Consult: Recurrent chest pain with CAD Call Completed: No 04/10/18 13:53 Consult to Washing Machine Loader [CONS] Routine Reason for SW Consult: Family would like information regarding Home health services/Aides. - Constitutional Vitals: Temp Pulse Resp BP Pulse Ox 97.8 F 64 18 103/49 95 04/12/18 07:09 04/12/18 07:09 04/12/18 07:09 04/12/18 07:09 04/12/18 07:09 General appearance: Present: A&O X 3, no acute distress, answers questions appropriately Exam: Gen: Alert, awake , Oriented to time,place and person Chest: Diminished BS b/l, No crackles, No rales, No wheezing Heart: S1S2+ RRR No Murmurs Abd: Soft, NT, BS + No organomegaly Ext: No edema, pulses are palpable, no tenderness Neuro: No focal neuro deficits Psych: Normal mood Skin: No rash - Patient Status Disposition: Home, Self-Care Condition: Good Functional capacity at discharge: uses cane/walker Overall status at discharge: patient is progressing back to baseline - Discharge Instructions Instructions: Metoprolol (By mouth), Furosemide (By mouth), Aspirin (By mouth), Isosorbide Mononitrate (By mouth), Clopidogrel (By mouth), Atrial Fibrillation (DC), Chest Pain (DC), Left Heart Catheterization (DC), Holter Monitoring (DC) Follow Up With: Silvio Bennett MD [Partnered Physician] - (Your appointment has been requested. Our offices will contact you with an appointment time and date. ) Roopa Lambert CNP [Primary Care Provider] - 04/14/18 8:30 am () Additional Instructions: [facility] has been arranged and will contact you in the next 24-48 hours to arrange admission date and time. Their contact number is #[phone]. - Diet and Activity Activity: resume usual activities as tolerated Diet: low fat, low cholesterol <Ale Matos - Last Filed: 04/12/18 15:22> Date of Encounter: 04/12/18 - Discharge Diagnosis (1) Hypertension Status: Acute Qualifiers: Hypertension type: essential hypertension Qualified Code(s): I10 - Essential (primary) hypertension (2) DVT prophylaxis Status: Acute (3) CAD (coronary artery disease) Status: Acute Qualifiers: Coronary Disease-Associated Artery/Lesion type: [place] artery [place] vs. transplanted heart: [place] heart Associated angina: with stable angina Qualified Code(s): I25.118 - Atherosclerotic heart disease of [place] coronary artery with other forms of angina pectoris (4) Chest pain Status: Acute Qualifiers: Chest pain type: unspecified Qualified Code(s): R07.9 - Chest pain, unspecified (5) COPD (chronic obstructive pulmonary disease) Status: Chronic Qualifiers: Qualified Code(s): J44.9 - Chronic obstructive pulmonary disease, unspecified Hospital course: Ms. Keyes is a 77 year old female - Time Spent with Patient Total time spent providing and/or coordinating discharge services: Date of admission: 04/10/18 11:59 Primary care physician: Roopa Lambert CNP Consults: 04/10/18 12:28 Consult to Cardiology [CONS] Routine Comment: Consulting Provider: Cardiology [facility] Reason for Consult: Recurrent chest pain with CAD Call Completed: No 04/10/18 13:53 Consult to Washing Machine Loader [CONS] Routine Reason for SW Consult: Family would like information regarding Home health services/Aides. - Constitutional Vitals: Temp Pulse Resp BP Pulse Ox 97.8 F 64 18 103/49 95 04/12/18 07:09 04/12/18 07:09 04/12/18 07:09 04/12/18 07:09 04/12/18 07:09 - Attending Attestation I examined this patient and my medical decision-making was reviewed with the Resident Physician Dr. Madison. I agree with the documented findings, disposition and treatment plan as described except to the extent set forth below. Ms. Keyes is a 77 year old female with PMH of CAD s/p PCI to pLAD 05/2016, HTN, HLD presenting to ED with recurrent chest pain that has been intermittent for a couple of months and has gotten worse in the last week. Chest pain is more like a pressure 8 out 10 in severity located at left chest wall region radiating to her left arm. She was admitted in the hospital and placed on ham curer. Her serial troponin came back is negative. She was evaluated by power supply engineer who did left heart catheterization today showed 40% in stent restenosis of pLAD stent, no intervention recommended. At this point cardiology recommend medical management with ASA, Statin annd BB, also added Imdur 30mg.She denied any more CP. SO will d/c her home in stable condition today. Chest: Diminished BS b/l No wheezing heart: S1S2+ RRR No murmurs
--- NOTE | 2018-04-12 10:54 | Invasive Diagnostic Lab Proc ---
Name: Selam Keyes Date of Study: 04/11/2018 Date: 1940 Ht: 64.9in Medical Record#: [id number] Age: 77 Wt: 171.96lb Gender: Female BSA: 1.85 Order #: [id number] BMI: 28.72 Physicians Procedure Physician: Patty Segovia MD Referring MD: Referring MD: Staff Name Position Time In Sabrina Tomlinson RT Scrub 11:40 AM Andrea Rojas RN Monitor 11:40 AM Sofía Bolivar RN Radiator Repairer 11:40 AM Indications Indication Unstable Angina Procedures Performed Procedure L HRT ARTERY/VENTRICLE ANGIO IV Doppler BLD Flow 1st Vessel MOD SED OTH PHYS/QHP 5/>YRS MOD SED OTHER PHYS/QHP EA MOD SED OTHER PHYS/QHP EA Pre-Procedure Checklist Informed consent is complete signed and on chart. H&P is on chart. ID band is on and ID verified with patient. Patient NPO for procedure The procedure was described for the patient and questions were answered. Blood Pressure: 119/65 ECG is on chart. Plan of Care Patient will tolerate the procedure without complications. Adequate level of comfort will be maintained. Hemodynamics will remain stable Patient will recover from procedure without complications. Respiratory function will be maintained. Cardiac rhythm will remain stable. Patient temperature will be maintained. Patient and/or family have verbalized understanding of the procedure. Patient Education Chief Complaint/Reason for Test: Cardiac Cath Developmental Category: Geriatric (65+ years) Developmentally Appropriate for Age: Yes Learning Barriers: None Education Needs: Plan of Care Education Method: Verbal Information Taught: Cardiac Cath Educational Evaluation: Able to repeat information Intravenous Access Time IV Size Location DC'd Fluid/Drip Rate Units RN 20g 1 03/11" Patent On Arrival Rt Antecubital 0.9NaCl 25 ml/hr Sofía Bolivar RN Allergies Penicillin guaifenesin Penicillins Benzonatate acetaminophen oxycodone hydrocodone Vital Signs Time BP (mmHg) HR (bpm) O2 Sat. RR (bpm) LOC 10:46 AM 119 / 65 60 97 % 14 5 = Fully awake and oriented or at pre-proc level 11:47 AM / % 5 = Fully awake and oriented or at pre-proc level 11:47 AM / % 4 = Oriented but drowsy 12:04 PM / % 4 = Oriented but drowsy 12:20 PM / % 4 = Oriented but drowsy 11:49 AM 159 / 70 66 100 % 8 11:54 AM 128 / 64 60 100 % 10 11:59 AM 131 / 71 61 100 % 11 12:04 PM 142 / 69 62 100 % 11 12:09 PM 141 / 67 64 100 % 11 12:14 PM 131 / 64 72 98 % 15 12:19 PM 130 / 63 69 100 % 11 12:24 PM 138 / 64 65 100 % 10 12:29 PM 152 / 75 67 100 % 17 12:34 PM 143 / 68 71 100 % 8 12:39 PM 146 / 65 71 100 % 9 12:45 PM 156 / 75 66 % 16 12:35 PM / % 4 = Oriented but drowsy Procedural Medications Time Medication Dose Units Method Given By 11:47 AM Oxygen 2 L/min nasal cannula Sofía Bolivar RN 11:52 AM Versed 1 mg Intravenous Sofía Bolivar RN 11:53 AM Fentanyl 50 mcg Intravenous Sofía Bolivar RN 11:59 AM Lidocaine 2% 19 ml Subcutaneous Patty Segovia MD 12:10 PM Nitroglycerin 100 mcg Intracoronary Gisella Segovia MD 12:22 PM Heparin 4000 units Intravenous Sofía Bolivar RN 12:28 PM 90mg Adenosine in 90 ml 0.9 NS 655 ml/hr Intravenous Sofía Bolivar RN ASA Classification: CLASS II- Mild systemic disease (i.e. well-controlled diabetes, hypertension, asthma, cigarette smoking) Emily Score Preprocedure Postprocedure Activity 2- Moves 4 extremities sustained head lift Activity 2- Moves 4 extremities sustained head lift Circulation 2- SBP +/= 20 points of pre-anesthetic level Circulation 2- SBP +/= 20 points of pre-anesthetic level Consciousness 2- Awake and alert oriented x 3 Consciousness 2- Awake and alert oriented x 3 O2 Saturation 2- Able to maintain O2 satruation of 92% on room air O2 Saturation 2- Able to maintain O2 satruation of 92% on room air Respiratory 2- Able to deep breathe and cough well Respiratory 2- Able to deep breathe and cough well Total Score 10 Total Score 10 Contrast Agent: Isovue Diagnostic Contrast: 175 ml Total Contrast: 175 ml Fluoro Dose: 4964 mGy Procedure Log Time Note Enter By 11:40 AM Pt arrived to helper animal laboratory 2 at 11:40 [place]ed[place] 11:40 AM Sabrina Tomlinson RT Position: Scrub Time in: 11:40 ced[place] 11:40 AM Andrea Rojas RN Position: Monitor Time in: 11:40 c[place] 11:40 AM Sofía Bolivar RN Position: Radiator Repairer Time in: 11:40 ced[place] 11:40 AM Patient charges- Angio tray pack, Navilyst 3mm J, Pulse Oximetry and ACIST tubing and transducer cedwards 11:47 AM Physican responded and notified patient is ready 11:47 cedwards 11:47 AM Physician arrived 11:47 ced[place] 11:47 AM ASA Class CLASS II- Mild systemic disease (i.e. well-controlled diabetes, hypertension, asthma, cigarette smoking) cedwards 11:47 AM Meet and greet completed cedwards 11:47 AM Sign in performed according to hospital policy. Informed consent was obtained. cedwards 11:47 AM Procedure start 11:47 cedwards 11:47 AM Time: 11:47 Oxygen on at 2 L/min per nasal cannula by Sofía Bolivar RN c[place] 11:47 AM Time: 11:47 Patient comfortable and pain free: Yes cedwards 11:47 AM Time: 11:47LOC: 5 = Fully awake and oriented or at pre-proc level cedwards 11:48 AM Vitals capture started with the following parameters, Patient=Adult, Interval=5 min, Initial Tkjseieb=248 mmHg, Deflation Rate=5 mmHg, Cuff placed on Right Arm 11:49 AM Case Start 11:49 AM CathStat 11:49 AM HR=66 bpm, EZQZ=174/70 mmhg, WqE7=389.0 %, Resp=8 B/min, Comment=NSR 11:52 AM Hair removed from procedure site in procedure lab using clippers. Bilateral groin prepped with Chloraprep by Andrea Rojas RN, then patient was draped. Skin intact. cedwards 11:52 AM Time: 11:52 Versed 1 mg Intravenous Given by Sofía Bolivar RN c[place] 11:53 AM Time: 11:53 Fentanyl 50 mcg Intravenous Given by Sofía Bolivar RN c[place] 11:53 AM Recorded ECG: HR=66 Condition=Condition 1 11:54 AM HR=60 bpm, VOZT=729/64 mmhg, RqN2=928.0 %, Resp=10 B/min, Comment=NSR 11:59 AM Clinical Presentation: Unstable angina cedwards 11:59 AM Time out was performed according to hospital policy. Conscious sedation and anesthesia was achieved (see medication log with in this report above) ced[place] 11:59 AM HR=61 bpm, FXCS=233/71 mmhg, NwS3=997.0 %, Resp=11 B/min, Comment=NSR 12:00 PM Time: 11:59 19 ml Lidocaine 2% to right groin Subcutaneous Given by Patty Segovia MD cedwards 12:01 PM Micro-Introducer Kit utilized for sheath placement cedwards 12:04 PM Time: 11:47 Patient comfortable and pain free: Yes cedwards 12:04 PM Time: 11:47LOC: 4 = Oriented but drowsy ced[place] 12:04 PM HR=62 bpm, MEVP=134/69 mmhg, RgU4=374.0 %, Resp=11 B/min, EtCO2=36 mmHg, Comment=NSR 12:04 PM Access obtained by percutaneous puncture. 6Fr 10cm Terumo Aurora sheath placed in right Femoral artery. [id number] cedwards 12:05 PM 5Fr FL 4 catheter inserted over the wire [facility] cedwards 12:06 PM 0.035 145cm Navilyst 3mmJ wire [id number] cedwards 12:06 PM LCA angiography performed in multiple views. cedwards 12:06 PM Pressure channel 1 zeroed. 12:07 PM Pressure channel 1 zeroed. 12:07 PM Recorded Pressure: Ao, HR=63, Condition=Condition 1 (Aorta) Ao 140/59/91 12:09 PM Recorded Pressure: Ao, HR=61, Condition=Condition 1 (Aorta) Ao 118/57/82 12:09 PM HR=64 bpm, MQMF=956/67 mmhg, HrI8=724.0 %, Resp=11 B/min, EtCO2=37 mmHg, Comment=NSR 12:10 PM Recorded Pressure: Ao, HR=65, Condition=Condition 1 (Aorta) Ao 109/50/75 12:10 PM Time: 12:10 Nitroglycerin 100 mcg Intracoronary Given by Gisella Segovia MD ced[place] 12:13 PM Recorded Pressure: Ao, HR=74, Condition=Condition 1 (Aorta) Ao 103/55/76 12:14 PM HR=72 bpm, HZVX=365/64 mmhg, SpO2=98.0 %, Resp=15 B/min, EtCO2=37 mmHg, Comment=NSR 12:17 PM Catheter removed cedwards 12:17 PM 5Fr FR 4 catheter inserted over the wire [facility] cedwards 12:17 PM RCA angiography performed in multiple views. cedwards 12:19 PM HR=69 bpm, GLRY=585/63 mmhg, ToV9=084.0 %, Resp=11 B/min, EtCO2=36 mmHg, Comment=NSR 12:20 PM Time: 12:04LOC: 4 = Oriented but drowsy ced[place] 12:20 PM Time: 12:04 Patient comfortable and pain free: Yes cedwards 12:20 PM Catheter removed cedwards 12:20 PM 5Fr Pigtail catheter inserted over the wire [facility] cedwards 12:20 PM Recorded Pressure: LV, HR=70, Condition=Condition 1 (Left Ventricle) LV 126/25/26 12:21 PM Recorded Pressure: LV, Ao, HR=69, Condition=Condition 1 (Left Ventricle) LV 120/28/21, (Aorta) Ao 126/57/87 12:21 PM Catheter crossed the aortic valve and was selectively placed in the left ventricle. Pressures recorded on pullback for left heart catheterization. cedwards 12:21 PM Catheter removed cedwards 12: PM Time: 12: Heparin 4000 units Intravenous Given by Sofía Bolivar RN ced[place] 12:22 PM 6Fr XB LAD 3.5 Cordis guide catheter was used to cannulate the PCI vessel successfully. reused? No cedwards 12:23 PM .014 [employer] Lacrosse 190cm guide wire across target lesion- successful. reused? No cedwards 12:23 PM Inflation device was opened. cedwards 12:23 PM Asist FFR Catheter advanced to target lesion. cedwards 12:24 PM FFR to LAD ced[place] 12:24 PM HR=65 bpm, PRKK=120/64 mmhg, JiU6=140.0 %, Resp=10 B/min, EtCO2=36 mmHg, Comment=NSR 12:25 PM Recorded Pressure: Ao, PV1, HR=65, Condition=Condition 1 (Aorta) Ao 121/16/65, (Portal Vein) PV1 0/0/0 12:28 PM Time: 12: 90mg Adenosine in 90 ml 0.9 NS 655 ml/hr Intravenous Given by Sofía Bolivar RN Hardy pump cedwards 12:29 PM HR=67 bpm, XAPP=749/75 mmhg, EcP4=034.0 %, Resp=17 B/min, EtCO2=38 mmHg, Comment=NSR 12:30 PM Recorded Pressure: Ao, PV1, HR=78, Condition=Condition 1 (Aorta) Ao 107/51/77, (Portal Vein) PV1 103/104/65 12:30 PM Recorded Pressure: Ao, PV1, HR=79, Condition=Condition 1 (Aorta) Ao 107/51/76, (Portal Vein) PV1 102/103/64 12:30 PM FFR Measurement: 0.84 cedwards 12:32 PM Adenosine stopped cedwards 12:33 PM Adenosine started again at 655 ml/hr cedwards 12:34 PM HR=71 bpm, NAZZ=542/68 mmhg, EcD6=875.0 %, Resp=8 B/min 12:35 PM Time: 12:20 Patient comfortable and pain free: Yes cedwards 12:35 PM Time: 12:20LOC: 4 = Oriented but drowsy cedwards 12:35 PM Recorded Pressure: Ao, PV1, HR=79, Condition=Condition 1 (Aorta) Ao 108/49/75, (Portal Vein) PV1 102/103/64 12:35 PM Recorded Pressure: Ao, PV1, HR=79, Condition=Condition 1 (Aorta) Ao 107/48/74, (Portal Vein) PV1 102/102/63 12:36 PM FFR Measurement: 0.84 cedwards 12:36 PM [place] stopped cedwards 12:36 PM Flow Wire/Catheter removed intact cedwards 12:36 PM Guide wire removed intact. cedwards 12:37 PM Recorded Pressure: Ao, HR=78, Condition=Condition 1 (Aorta) Ao 132/54/87 12:37 PM Guide catheter removed intact. cedwards 12:39 PM Procedure completed at 12:39 04/11/2018 ced[place] 12:39 PM Coronary Dominance: right cedwards 12:39 PM Did you address GENOVEVA flow and Dominance? Yes cedwards 12:39 PM HR=71 bpm, IIGY=685/65 mmhg, HfS7=954.0 %, Resp=9 B/min 12:40 PM Sign out completed: Radiation Dose 498.99 mGy, 4964.49 cGy/cm2 Fluoro Time: 7 Isovue 370 - 200ml contrast 175 ml given by Patty Segovia MD. Complications: None. 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 Cardiac Rehab Consult needed: NoConfirmed administered medications: Yes cedwards 12:40 PM Isovue 370 - 200ml,2 Bottle(s) used. cedwards 12:40 PM Arterial sheath pulled, Angio-seal closure device used and was Successful [id number] S/N. cedwards 12:41 PM Estimated Blood Loss: minimal cedwards 12:41 PM Post ECG NSR ced[place] 12:41 PM Post Blood Pressure 146/65 ced[place] 12:41 PM Information taught Cardiac Cath and Angioseal cedwards 12:41 PM Education needs Procedure, Plan of Care, and Disease Process cedwards 12:41 PM Learning barriers :None cedwards 12:41 PM Education Methods Verbal ced[place] 12:41 PM Education evaluation Able to repeat information cedwards 12:41 PM Site status No bleeding/hematoma - Rt Groin as reported by Gisella Segovia MD at 12:41 cedwards 12:41 PM Opsite applied cedwards 12:42 PM Plavix, Effient or Brilinta given Yes cedwards 12:42 PM Family placed in consult room. cedwards 12:42 PM Complications: None cedwards 12:45 PM HR=66 bpm, CFYS=068/75 mmhg, Resp=16 B/min 12:48 PM Lesion found in Proximal RCA. Pre Stenosis: 25 Pre GENOVEVA Flow: cedwards 12:48 PM Lesion found in Mid RCA. Pre Stenosis: 40 Pre GENOVEVA Flow: cedwards 12:48 PM Lesion found in Proximal LAD. Pre Stenosis: 40 Pre GENOVEVA Flow: cedwards 12:50 PM Time: 12:35LOC: 4 = Oriented but drowsy cedwards 12:50 PM Time: 12:35 Patient comfortable and pain free: Yes cedwards 12:50 PM Report given to Radha ROMO Pt taken to 3B Room #33. 12:50 cedwards 12:50 PM Patient out of room: 12:50 cedwards Equipment Used Size Length Diameter Item Category Angio tray pack Other Micro-Introducer Kit Other [employer] Aurora sheath Navilyst 3mmJ wire Guideliner Guide catheter BMW Guidewire Inflation kit Other Hardy pump Other Angio-seal Evolution Sealant Complications Complication None None Hemodynamics Pressures Site Systolic/A Wave Diastolic/V Wave Mean AO 140 59 91 AO 118 57 82 AO 109 50 75 AO 103 55 76 LV 126 25 26 LV 120 28 21 AO 126 57 87 AO 121 16 65 PV1 0 0 0 AO 107 51 77 PV1 103 104 65 AO 107 51 76 PV1 102 103 64 AO 108 49 75 PV1 102 103 64 AO 107 48 74 PV1 102 102 63 AO 132 54 87 Post Procedure Information Blood Pressure: 146/65 mmHg Rhythm: NSR Post procedural instructions were given Closure Device Time Device Success/Fail 04/11/2018 12:43:00 PM Angio-Seal VIP Successful Site Checks Time Location Status Staff Sheath In? Note 12:41 PM Rt Groin No bleeding/hematoma Gisella Segovia MD Pulses Time Site Pre-Procedure Post-Procedure Note Bilateral DP & PT 1+ Bilateral radial 2+ Updated by Andrea Rojas RN on 04/12/2018 10:46:44 AM electronically signed on 04/12/2018 10:47:50 AM with status of Final
--- NOTE | 2018-04-13 08:59 | Physician Discharge Referral ---
Home Health/Hosp Referral Info Transfer to: Home Health Provider in Charge Post Discharge: PCP - Diagnosis (1) Hypertension Status: Acute (2) DVT prophylaxis Status: Acute (3) CAD (coronary artery disease) Status: Acute (4) Chest pain Status: Acute (5) COPD (chronic obstructive pulmonary disease) Status: Chronic - Respiratory Orders Smoking Cessation: Smoking cessation has been advised. For more information, call the [place] Tobacco Quit Line at 9-289-DAVJ-NOW. - Services Needed Following services are medically necessary services: Nursing, Home Health Aide - Transfer Medications Prescriptions: Aspirin Enteric Coated [Aspirin EC] 81 mg PO DAILY #30 tablet. Clopidogrel [Plavix] 75 mg PO DAILY #30 tablet Furosemide [Lasix] 20 mg PO DAILY #30 tablet Isosorbide MONOnitrate (24 HR) [Imdur] 30 mg PO DAILY #30 tab.er.24h Metoprolol [Lopressor] 12.5 mg PO BID #30 tablet Home Medications: Loratadine [Claritin] 10 mg PO BID 01/04/16 [History] Fish Oil/Dha/Epa [Fish Oil 1,200 mg Fish Oil] 1,200 mg PO BID 01/05/16 [History] Ascorbic Acid [Vitamin C] 500 mg PO DAILY 05/02/16 [History] Losartan Potassium [Cozaar] 25 mg PO BID 05/14/16 [History] Fluticasone Propionate Nasal [Flonase] 1 spray NS BID PRN 10/23/16 [History] Pantoprazole Sodium [Protonix] 40 mg PO DAILY 10/23/16 [History] Ranitidine HCl [Heartburn Relief] 150 mg PO DAILY 10/23/16 [History] EPINEPHrine [Epipen] 0.3 mg IM ONCE PRN 05/13/17 [History] Meclizine HCl [Verticalm] 25 mg PO DAILY PRN 05/13/17 [History] Psyllium Husk [Daily Fiber] 0.52 gm PO DAILY 06/01/17 [History] Vitamin B Complex [B Complex] 1 tab PO DAILY 06/01/17 [History] Sucralfate [Carafate] 1 gm PO QIDAC #120 tablet 09/23/17 [Rx] Albuterol Sulfate [Albuterol Inhaler] 2 puff IH Q4H PRN 04/10/18 [History] Aspirin [Lo-Dose Aspirin EC] 81 mg PO DAILY 04/11/18 [History] Metoprolol [Lopressor] 12.5 mg PO BID 04/11/18 [History] Naproxen 500 mg PO BID PRN 04/11/18 [History] Aspirin Enteric Coated [Aspirin EC] 81 mg PO DAILY #30 tablet. 04/12/18 [Rx] Clopidogrel [Plavix] 75 mg PO DAILY #30 tablet 04/12/18 [Rx] Furosemide [Lasix] 20 mg PO DAILY #30 tablet 04/12/18 [Rx] Isosorbide MONOnitrate (24 HR) [Imdur] 30 mg PO DAILY #30 tab.er.24h 04/12/18 [Rx] Metoprolol [Lopressor] 12.5 mg PO BID #30 tablet 04/12/18 [Rx] Allergies/Adverse Reactions: Allergy/AdvReac Type Severity Reaction Status Date / Time atorvastatin Allergy See Verified 09/23/17 13:30 Comments ciprofloxacin Allergy Redness of Verified 09/23/17 13:30 Skin dextromethorphan Allergy Rash Verified 09/23/17 13:30 [From Capmist DM] doxycycline Allergy Redness of Verified 09/23/17 13:30 Skin guaifenesin [From Capmist DM] Allergy Rash Verified 09/23/17 13:30 Penicillins Allergy Redness of Verified 09/23/17 13:30 Skin pseudoephedrine Allergy Rash Verified 09/23/17 13:30 [From Capmist DM] Amoxicillin AdvReac Abdominal Verified 09/23/17 13:30 Pain Benzonatate AdvReac nausea/vomi Verified 09/23/17 13:30 [From Tessalon Perles] ting cetirizine AdvReac Insomnia Verified 09/23/17 13:30 hydrocodone [From Vicodin] AdvReac nausea/vomi Verified 09/23/17 13:30 ting meloxicam AdvReac Muscle Pain Verified 09/23/17 13:30 mometasone furoate AdvReac Nose Bleed Verified 09/23/17 13:30 [From Nasonex] nitrofurantoin AdvReac See Verified 09/23/17 13:30 Comments oxycodone [From Percocet] AdvReac nausea/vomi Verified 09/23/17 13:30 ting pravastatin AdvReac Muscle Pain Verified 09/23/17 13:30 sulfamethoxazole AdvReac Weakness Verified 09/23/17 13:30 [From Bactrim] trimethoprim [From Bactrim] AdvReac Weakness Verified 09/23/17 13:30 Certification: Further, I certify that my clinical findings support that this patient is homebound (i.e. absences from home require considerable and taxing effort and are for medical reasons or yarsani services or infrequently or short duration when for other reasons) because: Homebound Reason: Patient requires assistance of a person or device to safely leave home Attestation: My signature below is to certify that this patient is under my care and that I, or nurse practitioner, or a physician's assistant distribution manager working with me, has a [id number] encounter with this patient.
--- NOTE | 2018-04-13 14:37 | Electrocardiograph Report ---
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
== END 2018-04-12 10:54 | disposition home or self-care (01) ==
LOC: 3BNU 10:32 → EMEROOARM 10:32 → SUATTDRO 11:59 → 3BNU 13:04
PROVIDERS: ADMIT Student in an Organized Health Care Education/Training Program; ATTEND Family Medicine

== ENCOUNTER 2018-05-09 20:24 | Observation (INO) ==
[2018-05-09] MEDS ORDERED: Nitroglycerin 0.4 MG TAB.SUBL SL PRN (22:45)
[2018-05-09] MEDS ORDERED: *HR* Morphine 2 MG/ML SYRINGE IVP ONE (23:16)
[2018-05-09] MEDS ORDERED: Fluticasone Propionate Nasal 50 MCG/SPRAY BOTTLE NS PRN (23:17)
[2018-05-09] MEDS ORDERED: Ipratropium/Albuterol Neb 3 ML IH PRN (23:19)
--- NOTE | 2018-05-09 23:24 | Internal Med History&Physical ---
<Jesse Curtis N - Last Filed: 05/10/18 04:01> Date of Encounter: 05/10/18 Time of Encounter: 23:24 Internal Medicine - H&P: HPI Chief complaint: Chest pain History of present illness: Ms. Keyes is a 77 year old female with history of coronary artery disease status post stenting of the LAD in 2017 presented to the emergency department at [facility] for chief complaint of chest pain. Patient states that she was in the kitchen when she experienced substernal chest pain that radiated down the left arm initially and then both arms and her jaw. This is associated with shortness of breath, but no nausea or diaphoresis. Patient recently underwent left heart catheterization on 04/11/2018 for chest pain and a 40% stenosis in the proximal LAD, in-stent restenosis, was noted. Patient was reportedly informed that if she ever experience chest pain that she report to emergency department immediately as she may have an acute in-stent restenosis. Patient presented to [facility] via squad, she received a loading dose aspirin and nitroglycerin. The nitroglycerin reportedly dropped patient's blood pressure by 30 mmHg, but she did not become hypotensive. [facility] patient's troponin was negative, EKG did not reveal any acute ST abnormalities. Per ED records from [facility] patient's fun house attendant was contacted who directed the patient be transferred to [facility] for further cardiac monitoring. Patient arrived to [facility], she complained of 9 out of 10 chest pain. She received sublingual lactulose and was decrease her chest pain to 7 out of 10. Resting comfortably in bed, in no acute distress. No shortness of breath. Stat EKG was obtained that did not reveal any acute ST-T wave changes. Labs are unremarkable and troponin was negative. Patient is on aspirin and Plavix at home and states compliance with her medications. Past Med Surg Social Fam HX - Past Medical History Medical history: arthritis, atrial fibrillation, COPD, coronary artery disease, DVT, GERD, glaucoma, hyperlipidemia, hypertension, kidney stones, myocardial infarction, osteoporosis, renal disease Additional medical history: hiatal hernia, stage III kidney disease, lumbar OA/DDD, bladder prolapse, rectocele Psychiatric history: anxiety, depression, panic disorder - Past Surgical History Surgical History: angioplasty/stent, appendectomy, cataract, cholecystectomy, hysterectomy Additional surgical history: hand surgery, colonoscopy,bladder procedure, heart cath x3 - Social History Smoking Status: Never smoker Smokeless Tobacco Status: No Alcohol use: none Drug use: none - Family History Brother History Unknown: Yes Hx Family Cardiac Disorders: Yes Father History Unknown: Yes Living Status: Hx Family Cardiac Disorders: No Hx Family Respiratory Disorders: No Hx Family Cancer: No Hx Family GI Disorders: No Hx Family Endocrine Disorder: No Hx Family Neuromuscular Disorders: No Hx Family Neurologic Disorders: No Hx Family HEENT Disorders: No Hx Family Autoimmune Disorders: No Mother History Unknown: Yes Living Status: Hx Family Cardiac Disorders: No Hx Family Respiratory Disorders: No Hx Family Cancer: No Hx Family GI Disorders: No Hx Family Endocrine Disorder: No Hx Family Neuromuscular Disorders: No Hx Family Neurologic Disorders: No Hx Family HEENT Disorders: No Hx Family Autoimmune Disorders: No Sister History Unknown: Yes Living Status: Still Living Hx Family Cardiac Disorders: Yes Hx Family Respiratory Disorders: Yes (COPD) Hx Family Cancer: No Hx Family GI Disorders: Yes (GERD) Hx Family Endocrine Disorder: Yes Hx Family Neuromuscular Disorders: No Hx Family Neurologic Disorders: No Hx Family HEENT Disorders: No Hx Family Autoimmune Disorders: No Internal Medicine - H&P: Meds RX: Loratadine [Claritin] 10 mg PO BID 01/04/16 [History] RX: Fish Oil/Dha/Epa [Fish Oil 1,200 mg Fish Oil] 1,200 mg PO BID 01/05/16 [History] RX: Ascorbic Acid [Vitamin C] 500 mg PO DAILY 05/02/16 [History] RX: Losartan Potassium [Cozaar] 25 mg PO BID 05/14/16 [History] RX: Fluticasone Propionate Nasal [Flonase] 1 spray NS BID PRN 10/23/16 [History] RX: Pantoprazole Sodium [Protonix] 40 mg PO DAILY 10/23/16 [History] RX: Ranitidine HCl [Heartburn Relief] 150 mg PO DAILY 10/23/16 [History] RX: EPINEPHrine [Epipen] 0.3 mg IM ONCE PRN 05/13/17 [History] RX: Psyllium Husk [Daily Fiber] 0.52 gm PO DAILY 06/01/17 [History] RX: Vitamin B Complex [B Complex] 1 tab PO DAILY 06/01/17 [History] RX: Albuterol Sulfate [Albuterol Inhaler] 2 puff IH Q4H PRN 04/10/18 [History] RX: Aspirin [Lo-Dose Aspirin EC] 81 mg PO DAILY 04/11/18 [History] RX: Metoprolol [Lopressor] 12.5 mg PO BID 04/11/18 [History] RX: Aspirin Enteric Coated [Aspirin EC] 81 mg PO DAILY #30 tablet. 04/12/18 [Rx] RX: Clopidogrel [Plavix] 75 mg PO DAILY #30 tablet 04/12/18 [Rx] RX: Furosemide [Lasix] 20 mg PO DAILY #30 tablet 04/12/18 [Rx] RX: Metoprolol [Lopressor] 12.5 mg PO BID #30 tablet 04/12/18 [Rx] Duoneb 05/09/18 [History] Allergy/AdvReac Type Severity Reaction Status Date / Time atorvastatin Allergy See Verified 09/23/17 13:30 Comments ciprofloxacin Allergy Redness of Verified 09/23/17 13:30 Skin dextromethorphan Allergy Rash Verified 09/23/17 13:30 [From Capmist DM] doxycycline Allergy Redness of Verified 09/23/17 13:30 Skin guaifenesin [From Capmist DM] Allergy Rash Verified 09/23/17 13:30 Penicillins Allergy Redness of Verified 09/23/17 13:30 Skin pseudoephedrine Allergy Rash Verified 09/23/17 13:30 [From Capmist DM] Amoxicillin AdvReac Abdominal Verified 09/23/17 13:30 Pain Benzonatate AdvReac nausea/vomi Verified 09/23/17 13:30 [From [employer]] ting cetirizine AdvReac Insomnia Verified 09/23/17 13:30 hydrocodone [From Vicodin] AdvReac nausea/vomi Verified 09/23/17 13:30 ting meloxicam AdvReac Muscle Pain Verified 09/23/17 13:30 mometasone furoate AdvReac Nose Bleed Verified 09/23/17 13:30 [From Nasonex] nitrofurantoin AdvReac See Verified 09/23/17 13:30 Comments oxycodone [From Percocet] AdvReac nausea/vomi Verified 09/23/17 13:30 ting pravastatin AdvReac Muscle Pain Verified 09/23/17 13:30 sulfamethoxazole AdvReac Weakness Verified 09/23/17 13:30 [From Bactrim] trimethoprim [From Bactrim] AdvReac Weakness Verified 09/23/17 13:30 All Systems PM: A 10-system review of systems was performed and is negative for pertinent f indings except as documented above in the HPI. - Constitutional Constitutional: chills, no fever(s) - EENT Eyes: no change in vision Ears: no decreased hearing - Cardiovascular Cardiovascular ROS IM: chest pain - Respiratory Respiratory: dyspnea - Gastrointestinal Gastrointestinal: diarrhea, no abdominal pain, no hematochezia, no melena - Genitourinary Genitourinary: dysuria - Musculoskeletal Musculoskeletal ROS IM: back pain - Integumentary Integumentary IM: no rash - Hematologic/Lymphatic Hematologic/Lymphatic: easy bruising - Constitutional Vitals: Temp Pulse Resp BP Pulse Ox 97.9 F 64 16 151/70 98 05/09/18 22:39 05/09/18 22:39 05/09/18 22:39 05/09/18 22:39 05/09/18 22:39 Exam: Constitutional: Resting currently in bed, no acute distress HEENT: Eyes ocular muscles are intact, pupils are equal and round, no intraoral lesions, mucosa moist, external nares and ears patent Neck: No JVD, trachea midline Chest: Symmetrical chest wall rise, no tenderness to palpation, no accessory muscle use Respiratory: Clear to auscultation bilaterally, no rales rhonchi or wheezing Abdomen: Soft, nontender, no guarding or rigidity. Extremities: No cyanosis clubbing or edema Neurological: Alert and oriented 3, no obvious focal neurological deficit Psych: Appropriate mood and affect Internal Med - H&P Results - Labs CBC & Chem 7: 05/09/18 23:22 05/09/18 23:22 - Assessment and Plan (1) Chest pain Current Visit: Yes Status: Acute Assessment and plan: One day history of chest pain, substernal, pressure, radiation to both arms and jaw Social shortness of breath History of coronary artery disease with stenting in the LAD in 2017, repeat LHC in 2019 revealed 40% in-stent restenosis On aspirin and Plavix at home, states compliance EKG and troponin not indicative of ACS We will trend troponin Consult cardiology Nitroglycerin as needed for chest pain Qualifiers: Chest pain type: chest pain due to myocardial ischemia Ischemic chest pain type: unstable angina pectoris Qualified Code(s): I20.0 - Unstable angina (2) CAD (coronary artery disease) Current Visit: No Status: Acute Assessment and plan: History of coronary artery disease status post stenting of the LAD [place] [address] Ramos Repeat left heart catheter in April 2018 revealed 40% stenosis of the LAD, in -stent restenosis On aspirin and Plavix at home and states compliance Concern for worsening stenosis of the LAD, however troponin EKG unremarkable We will continue to trend troponins and consult cardiology Patient received aspirin loading dose in the emergency department. Continue nitroglycerin for chest pain Qualifiers: Coronary Disease-Associated Artery/Lesion type: [place] artery [place] vs. transplanted heart: [place] heart Associated angina: with stable angina Qualified Code(s): I25.118 - Atherosclerotic heart disease of [place] coronary artery with other forms of angina pectoris (3) Hypertension Current Visit: No Status: Chronic Assessment and plan: Continue home anti-hypertensives Qualifiers: Hypertension type: essential hypertension Qualified Code(s): I10 - Essential (primary) hypertension (4) COPD (chronic obstructive pulmonary disease) Current Visit: No Status: Chronic Assessment and plan: Not in exacerbation No wheezing on examination We will provide DuoNeb's as needed Qualifiers: Qualified Code(s): J44.9 - Chronic obstructive pulmonary disease, unspecified (5) History of atrial fibrillation Current Visit: No Status: Chronic Assessment and plan: States history of A. fib, however not on anticoagulation EKG shows sinus rhythm Cardiac monitoring (6) DVT prophylaxis Current Visit: No Status: Acute Assessment and plan: Heparin 5000 units subcutaneous every 12 hours - Time Spent With Patient Total time spent is greater than 50% in coordination of care (as documented) at patient's floor/unit and/or counseling patient: <Speedy Osorio - Last Filed: 05/10/18 04:03> Date of Encounter: 05/09/18 Internal Medicine - H&P: HPI History of present illness: Ms. Keyes is a 77 year old female All Systems PM: A 10-system review of systems was performed and is negative for pertinent findings except as documented above in the HPI. - Constitutional Vitals: Temp Pulse Resp BP Pulse Ox 97.9 F 64 16 151/70 98 05/09/18 22:39 05/09/18 22:39 05/09/18 22:39 05/09/18 22:39 05/09/18 22:39 Internal Med - H&P Results - Labs CBC & Chem 7: 05/09/18 23:22 05/09/18 23:22 Labs: Short CBC 05/09/18 Range/Units 23:22 WBC 6.5 (4.3-11.1) K/mcL Hgb 10.9 L (11.5-15.4) g/dL Hct 31.5 L (35.3-44.9) % Plt Count 165 (140-400) K/mcL Neutrophils # 4.8 (1.6-8.9) K/mcL BMP 05/09/18 23:22 Sodium 131 L Potassium 4.0 Chloride 98 Carbon Dioxide 25 BUN 19 Creatinine 0.86 Glucose 105 Calcium 9.3 Cardiac Enzymes 05/09/18 Range/Units 23:22 Troponin I < 0.03 (< 0.04) ng/mL Liver Function 05/09/18 Range/Units 23:22 Total Bilirubin 0.4 (0.3-1.0) mg/dL Direct Bilirubin 0.1 (0.0-0.2) mg/dL AST 18 (13-39) Units/L ALT 14 (7-52) Units/L Alkaline Phosphatase 72 (34-104) Units/L Albumin 3.9 (3.5-5.7) g/dL Urine 05/09/18 Range/Units 23:34 Urine Color Dark Yellow (Yellow) Urine Clarity Turbid A (Clear) Urine pH 6.0 (5.0-8.0) pH Units Ur Specific [place] 1.016 (1.010-1.025) Urine Protein 30 H (Neg-Trace) mg/dL Urine Glucose (UA) Normal (Normal) mg/dL - Time Spent With Patient Total time spent is greater than 50% in coordination of care (as documented) at patient's floor/unit and/or counseling patient: - Attending Attestation I performed a history and physical exam of the patient on 05/09/18 and discussed management with the resident. I reviewed the resident's note and agree with the documented findings and plan of care. Selam Keyes is a 77-year-old woman with a history of coronary artery disease who underwent PCI with 1 stent placed to her pLAD in May 2016 and subsequently was on DAPT for 1 year but more recently has been managed for unstable angina. She had an LHC done a month ago showing 40% in-stent restenosis as well as disease in her RCA. Medical optimization was recommended. She comes in now on transfer from [place] where she presented to with chest pain for which she was given loading dose of aspirin and multiple doses of nitroglycerin with only temporary relief. Her EKG is reviewed by me shows normal sinus rhythm and her initial troponin level was n egative. She remains hemodynamically stable. We will admit her for observation of her unstable angina and consult cardiology for further recommendations as she reports adherence to her current therapy. Of note she is not on statins due to muscle side effects. Administer a short PO course of abx for cystitis. ALEA VASQUEZ.
[2018-05-09 23:39] LABS: Prothrombin Time 11.4 Seconds (9.4-12.1)
[2018-05-09 23:42] LABS: Activated Partial Thrombo Time 34.9 Seconds (26.0-36.0)
[2018-05-09 23:48] LABS: Basophils % 0.3 %; Eosinophils # 0.1 K/mcL (0.0-0.6); Hematocrit 31.5 % (35.3-44.9); Hemoglobin 10.9 g/dL (11.5-15.4); Immature Granulocytes % 0.9 % (0-4); Lymphocytes # 1.2 K/mcL (0.6-4.6); Lymphocytes % 18.7 %; Mean Corpuscular HGB Conc 34.6 g/dL (31.6-35.5); Mean Corpuscular Hemoglobin 29.1 pg (28.0-33.3); Mean Corpuscular Volume 84.2 fL (83.0-100.0); Mean Platelet Volume 9.4 fL (9.4-12.4); Monocytes # 0.3 K/mcL (0.0-1.3); Monocytes % 3.9 %; Neutrophils # 4.8 K/mcL (1.6-8.9); Platelet Count 165 K/mcL (140-400); Red Blood Count 3.74 M/mcL (3.82-4.97); Red Cell Distribution Width 13.1 % (11.5-14.5); Segmented Neutrophils % 74.2 %
[2018-05-09 23:58] LABS: Alanine Aminotransferase 14 Units/L (7-52); Albumin 3.9 g/dL (3.5-5.7); Albumin/Globulin Ratio 1.6 (1.1-2.2); Alkaline Phosphatase 72 Units/L (34-104); Aspartate Amino Transferase 18 Units/L (13-39); BUN/Creatinine Ratio 22 (6-26); Bilirubin,Direct 0.1 mg/dL (0.0-0.2); Bilirubin,Indirect 0.3 mg/dL (0.0-1.2); Bilirubin,Total 0.4 mg/dL (0.3-1.0); Blood Urea Nitrogen 19 mg/dL (8-23); Calcium 9.3 mg/dL (8.6-10.3); Carbon Dioxide 25 mEq/L (23-29); Chloride 98 mEq/L (98-107); Globulin 2.4 g/dL (2.4-3.5); Glucose 105 mg/dL (70-105); Osmolality,Calculated 275 (280-300); Sodium 131 mEq/L (136-145); Total Protein 6.3 g/dL (6.4-8.9); Troponin I < 0.03 ng/mL (< 0.04); eGFR For Non-African Americans > 60 (> 60)
[2018-05-10] MEDS ORDERED: Ondansetron 4 MG/2 ML VIAL IVP PRN (00:18)
[2018-05-10] MEDS ORDERED: Naloxone 0.4 MG/ML INJ IVP PRN (00:18)
[2018-05-10 00:43] LABS: Bilirubin,Urine Small (Negative); Blood,Urine Small (Negative); Clarity,Urine Turbid (Clear); Color,Urine Dark Yellow (Yellow); Glucose,Urine (UA) Normal (Normal); Ketones,Urine Negative (Negative); Leukocyte Esterase,Urine Large (Negative); Nitrite,Urine Negative (Negative); Protein,Urine 30 mg/dL (Neg-Trace); Specific Gravity,Urine 1.016 (1.010-1.025); Urobilinogen,Urine Normal (Normal)
[2018-05-10 00:45] LABS: Bacteria,Urine None Seen per hpf (None-Few); Hyaline Casts,Urine None Seen per lpf (None-Few); Squamous Epithelial Cell,Urine Many per lpf (None-Few); WBC,Urine TNTC per hpf (0-3)
[2018-05-10 01:04] LABS: Chol/HDL Ratio 3.6 (0-4.9); Cholesterol 159 mg/dL (< 200); HDL Cholesterol 44 mg/dL (40-59); LDL Cholesterol,Calculated 93 mg/dL (0-99); Triglycerides 111 mg/dL (< 150)
[2018-05-10] MEDS ORDERED: *HR* Heparin 5,000 UNIT/ML VIAL SQ SCH (06:00)
[2018-05-10 06:44] LABS: Estimated Average Glucose 108 mg/dl; Hemoglobin A1C 5.4 %
[2018-05-10] MEDS ORDERED: Famotidine 20 MG TABLET PO SCH (09:00)
[2018-05-10] MEDS ORDERED: Loratadine 10 MG TABLET PO SCH (09:00)
[2018-05-10] MEDS ORDERED: Furosemide 20 MG TABLET PO SCH (09:00)
[2018-05-10] MEDS ORDERED: FISH OIL PO SCH (09:00)
[2018-05-10] MEDS ORDERED: Aspirin Enteric Coated 81 MG Tablet PO SCH (09:00)
[2018-05-10] MEDS ORDERED: Vitamin B Complex/Vit C/Vit E 1 EACH TABLET PO SCH (09:00)
[2018-05-10] MEDS ORDERED: Psyllium 1 PACKET POWD.PACK PO SCH (09:00)
--- NOTE | 2018-05-10 09:44 | Internal Med Progress Note ---
Hospitalist Progress Note - Encounter Date of Encounter: 05/10/18 - Subjective Interval History: Patient is a 77-year-old female with past medical history significant for coronary artery disease status post stenting of the LAD in 2016 who presented with chest pain - Exam Vitals: Temp Pulse Resp BP Pulse Ox 98.7 F 77 16 122/63 96 05/10/18 07:25 05/10/18 07:25 05/10/18 07:25 05/10/18 07:25 05/10/18 07:25 - Assessment and Plan (1) Chest pain Current Visit: Yes Status: Acute Assessment and Plan: Patient's first 2 sets of troponins are negative and no acute changes on EKG Due to patient's significant history of coronary artery disease status post stenting of the LAD in 2016 with repeat left heart catheter in April 2018 revealing 40% stenosis of the LAD, in-stent restenosis, will consult cardiology for recommendations (2) CAD (coronary artery disease) Current Visit: No Status: Acute Assessment and Plan: History of and management as above Continue asa, bb, arb and plavix (3) Hypertension Current Visit: No Status: Acute Assessment and Plan: Continue losartan in addition to metoprolol (4) COPD (chronic obstructive pulmonary disease) Current Visit: No Status: Chronic Assessment and Plan: Continue dual nebs as needed (5) History of atrial fibrillation Current Visit: No Status: Chronic Assessment and Plan: States history of A. fib, however not on anticoagulation EKG shows sinus rhythm Cardiac monitoring DVT Prophylaxis: Heparin subcutaneous - Time Spent with Patient Total time spent is greater than 50% in coordination of care (as documented) at patient's floor/unit and/or counseling patient: Internal Medicine: Result - Labs CBC & Chem 7: 05/09/18 23:22 05/09/18 23:22 Labs: Short CBC 05/09/18 Range/Units 23:22 WBC 6.5 (4.3-11.1) K/mcL Hgb 10.9 L (11.5-15.4) g/dL Hct 31.5 L (35.3-44.9) % Plt Count 165 (140-400) K/mcL Neutrophils # 4.8 (1.6-8.9) K/mcL BMP 05/09/18 23:22 Sodium 131 L Potassium 4.0 Chloride 98 Carbon Dioxide 25 BUN 19 Creatinine 0.86 Glucose 105 Calcium 9.3 Cardiac Enzymes 05/09/18 05/10/18 Range/Units 23:22 05:27 Troponin I < 0.03 < 0.03 (< 0.04) ng/mL Liver Function 05/09/18 Range/Units 23:22 Total Bilirubin 0.4 (0.3-1.0) mg/dL Direct Bilirubin 0.1 (0.0-0.2) mg/dL AST 18 (13-39) Units/L ALT 14 (7-52) Units/L Alkaline Phosphatase 72 (34-104) Units/L Albumin 3.9 (3.5-5.7) g/dL Urine 05/09/18 Range/Units 23:34 Urine Color Dark Yellow (Yellow) Urine Clarity Turbid A (Clear) Urine pH 6.0 (5.0-8.0) pH Units Ur Specific [place] 1.016 (1.010-1.025) Urine Protein 30 H (Neg-Trace) mg/dL Urine Glucose (UA) Normal (Normal) mg/dL - ABG Interpretation ABG results: PT/INR, D-dimer PT 11.4 Seconds (9.4-12.1) 05/09/18 23:22 Consult Discharge Plan - Plan Referrals: Roopa Lambert, [employer] [Primary Care Provider] - (1) Chest pain Qualifiers: Chest pain type: chest pain due to myocardial ischemia Ischemic chest pain type: unstable angina pectoris Qualified Code(s): I20.0 - Unstable angina (2) CAD (coronary artery disease) Qualifiers: Coronary Disease-Associated Artery/Lesion type: [place] artery [place] vs. transplanted heart: [place] heart Associated angina: with stable angina Qualified Code(s): I25.118 - Atherosclerotic heart disease of [place] coronary artery with other forms of angina pectoris (3) Hypertension Qualifiers: Hypertension type: essential hypertension Qualified Code(s): I10 - Essential (primary) hypertension (4) COPD (chronic obstructive pulmonary disease) Qualifiers: Qualified Code(s): J44.9 - Chronic obstructive pulmonary disease, unspecified
--- NOTE | 2018-05-10 09:49 | Cardiology Consult Note ---
Addendum entered and electronically signed by Haim Ramos MD 05/10/18 14:31: I examined this patient and my medical decision-making was reviewed with the AGRICULTURE LABORATORY TECHNICIAN. I agree with the documented findings, disposition and treatment plan as described except to the extent set forth below. A/P: Chest pain CAD No documented AF evidence Troponin negative, chest pain better with Imdur. Discussed films which were reviewed and advised continued med treatment and also some evaluation of possible musculoskeletal as a cause. Acceptable for discharge. Thank you for the consult, Haim Ramos MD [facility] Original Note: Date of Encounter: 05/10/18 Time of Encounter: 09:47 Assessment and Plan (1) Chest pain Current Visit: Yes Status: Acute Presents with chest pain, left sided chest pain radiating to left arm and jaw,then right side, associated dyspnea and nausea. Troponins negative x 2. No ischemic ECG changes. Hx CAD--[facility] 05/2016 PTCA/GHULAM to pLAD. Recent [facility] 04/11/18--mild 2V CAD--40% pLAD ISR FFR negative, 0.84. No intervention. TTE 04/10/18 EF preserved. Discussed and reviewed with Dr. Ramos. [facility] films were reviewed. No need for repeat C at this time. Imdur 30mg was added last month, currently not on home med list. Will increase Imdur to 60mg daily. Anticipate sign off once seen and evaluated by Dr. Ramos. Qualifiers: Chest pain type: chest pain due to myocardial ischemia Ischemic chest pain type: unstable angina pectoris Qualified Code(s): I20.0 - Unstable angina (2) CAD (coronary artery disease) Current Visit: No Status: Acute As above, hx PCI. Recent C 04/11/18 without intervention. Continue ASA, Plavix, BB, ARB. Not on statin due to adverse reaction--muscle pain. Increase Imdur to 60mg daily. Qualifiers: Coronary Disease-Associated Artery/Lesion type: [place] artery [place] vs. tr ansplanted heart: [place] heart Associated angina: with stable angina Qualified Code(s): I25.118 - Atherosclerotic heart disease of [place] coronary artery with other forms of angina pectoris (3) History of atrial fibrillation Current Visit: No Status: Chronic Reported to have h/o brief afib caught on telemetry in the past. No recurrent events. 4 week event monitor in 2017 showed NSR, PAC and run of PAT. ECG on admission is sinus rhythm. Recent 48 hr Holter 04/12/18 baseline rhythm is sinus. Occasional PACs. Rare PVCs. No ventricular arrhythmias. No pauses. Several episodes of SVT- longest 38 beats at rate of 125bpm- probable PAT. During pt reported symptoms, rhythm is normal sinus. Continue BB. Not on AC given no documented PAF recurrence. Continue ASA. Discussion w patient/family: The assessment and plan as outlined above was discussed with the patient and/or family members who expressed understanding and agreement. All questions were answered. Thank you for involving us in the care of your patient. Please call with any questions. I will discuss and review with Dr. Ramos and make changes as necessary. History of Present Illness Consult date: 05/10/18 Consult reason: chest pain Chief complaint: chest pain History of present illness: Ms. Keyes is a 77 year old female with PMH of CAD s/p PCI to pLAD 05/2016, HTN, HLD presenting to ED with chest pain described as pressure, located in the left chest and radiating to the left arm and jaw, then the right side. Pain associated with shortness of breath and nausea, improvement with nitro. Troponins negative x 2. No ECG changes. Intermittent chest pain this AM. Cardiology consulted for further recs. Pt had a recent C 04/11/18 with mild 2V CAD--40% ISR of pLAD, FFR 0.84. Prior CV testin hr Holter 04/12/18: Baseline rhythm is normal sinus. Occasional PACs. Rare PVCs. No ventricular arrhythmias. No pauses. Several episodes of SVT- longest 38 beats at rate of 125bpm- probable PAT. During pt reported symptoms, rhythm is normal sinus. LHC 04/11/18: There is mild two vessel coronary artery disease. FFR Measurement: 0.84 TTE 04/10/18: LVEF 60-65%. Normal LV chamber size, wall thickness and function. Mild left ventricular diastolic dysfunction. Normal right ventricular structure and function. Mild aortic regurgitation. No evidence of pulmonary hypertension. Nuclear stress test 06/02/17: Perfusion imaging negative for ischemia or infarct. Gated EF >70%. LHC 05/14/16: Severe 1 vessel CAD. EF 65%. Successful PTCA/GHULAM to pLAD for severe 85% focal stenosis. Past Med Surg Social Fam HX - Past Medical History Medical history: arthritis, atrial fibrillation, COPD, coronary artery disease, DVT, GERD, glaucoma, hyperlipidemia, hypertension, kidney stones, myocardial infarction, osteoporosis, renal disease Additional medical history: hiatal hernia, stage III kidney disease, lumbar OA/DDD, bladder prolapse, rectocele Psychiatric history: anxiety, depression, panic disorder - Past Surgical History Surgical History: angioplasty/stent, appendectomy, cataract, cholecystectomy, hysterectomy Additional surgical history: hand surgery, colonoscopy,bladder procedure, heart cath x3 - Social History Smoking Status: Never smoker Smokeless Tobacco Status: No Alcohol use: none Drug use: none - Family History Brother History Unknown: Yes Hx Family Cardiac Disorders: Yes Sister History Unknown: Yes Living Status: Still Living Hx Family Cardiac Disorders: Yes Hx Family Respiratory Disorders: Yes (COPD) Hx Family Cancer: No Hx Family GI Disorders: Yes (GERD) Hx Family Endocrine Disorder: Yes Hx Family Neuromuscular Disorders: No Hx Family Neurologic Disorders: No Hx Family HEENT Disorders: No Hx Family Autoimmune Disorders: No Mother History Unknown: Yes Living Status: Hx Family Cardiac Disorders: No Hx Family Respiratory Disorders: No Hx Family Cancer: No Hx Family GI Disorders: No Hx Family Endocrine Disorder: No Hx Family Neuromuscular Disorders: No Hx Family Neurologic Disorders: No Hx Family HEENT Disorders: No Hx Family Autoimmune Disorders: No Father History Unknown: Yes Living Status: Hx Family Cardiac Disorders: No Hx Family Respiratory Disorders: No Hx Family Cancer: No Hx Family GI Disorders: No Hx Family Endocrine Disorder: No Hx Family Neuromuscular Disorders: No Hx Family Neurologic Disorders: No Hx Family HEENT Disorders: No Hx Family Autoimmune Disorders: No Medications and Allergies Loratadine [Claritin] 10 mg PO BID 01/04/16 [History] Fish Oil/Dha/Epa [Fish Oil 1,200 mg Fish Oil] 1,200 mg PO BID 01/05/16 [History] Ascorbic Acid [Vitamin C] 500 mg PO DAILY 05/02/16 [History] Losartan Potassium [Cozaar] 25 mg PO BID 05/14/16 [History] Fluticasone Propionate Nasal [Flonase] 1 spray NS BID PRN 10/23/16 [History] Pantoprazole Sodium [Protonix] 40 mg PO DAILY 10/23/16 [History] Ranitidine HCl [Heartburn Relief] 150 mg PO DAILY 10/23/16 [History] EPINEPHrine [Epipen] 0.3 mg IM ONCE PRN 05/13/17 [History] Psyllium Husk [Daily Fiber] 0.52 gm PO DAILY 06/01/17 [History] Vitamin B Complex [B Complex] 1 tab PO DAILY 06/01/17 [History] Albuterol Sulfate [Albuterol Inhaler] 2 puff IH Q4H PRN 04/10/18 [History] Aspirin [Lo-Dose Aspirin EC] 81 mg PO DAILY 04/11/18 [History] Metoprolol [Lopressor] 12.5 mg PO BID 04/11/18 [History] Aspirin Enteric Coated [Aspirin EC] 81 mg PO DAILY #30 tablet. 04/12/18 [Rx] Clopidogrel [Plavix] 75 mg PO DAILY #30 tablet 04/12/18 [Rx] Furosemide [Lasix] 20 mg PO DAILY #30 tablet 04/12/18 [Rx] Metoprolol [Lopressor] 12.5 mg PO BID #30 tablet 04/12/18 [Rx] Duoneb 05/09/18 [History] Allergy/AdvReac Type Severity Reaction Status Date / Time atorvastatin Allergy See Verified 09/23/17 13:30 Comments ciprofloxacin Allergy Redness of Verified 09/23/17 13:30 Skin dextromethorphan Allergy Rash Verified 09/23/17 13:30 [From Capmist DM] doxycycline Allergy Redness of Verified 09/23/17 13:30 Skin guaifenesin [From Capmist DM] Allergy Rash Verified 09/23/17 13:30 Penicillins Allergy Redness of Verified 09/23/17 13:30 Skin pseudoephedrine Allergy Rash Verified 09/23/17 13:30 [From Capmist DM] Amoxicillin AdvReac Abdominal Verified 09/23/17 13:30 Pain Benzonatate AdvReac nausea/vomi Verified 09/23/17 13:30 [From Raul Ahn] ting cetirizine AdvReac Insomnia Verified 09/23/17 13:30 hydrocodone [From Vicodin] AdvReac nausea/vomi Verified 09/23/17 13:30 ting meloxicam AdvReac Muscle Pain Verified 09/23/17 13:30 mometasone furoate AdvReac Nose Bleed Verified 09/23/17 13:30 [From Nasonex] nitrofurantoin AdvReac See Verified 09/23/17 13:30 Comments oxycodone [From Percocet] AdvReac nausea/vomi Verified 09/23/17 13:30 ting pravastatin AdvReac Muscle Pain Verified 09/23/17 13:30 sulfamethoxazole AdvReac Weakness Verified 09/23/17 13:30 [From Bactrim] trimethoprim [From Bactrim] AdvReac Weakness Verified 09/23/17 13:30 All Systems Review: The remainder of the systems were reviewed and are negative - Cardiovascular Cardiovascular: as per HPI, chest pain at rest, chest pain with exertion, dyspnea at rest, dyspnea on exertion, radiating jaw, neck or arm pain, palpitations - Gastrointestinal Gastrointestinal: nausea Physical Examination Vital Signs, Last 4 Hours Temp Pulse Resp BP Pulse Ox 05/10/18 07:25 98.7 F 77 16 122/63 96 05/10/18 07:13 98.0 F 75 16 112/70 96 Vital Signs Temp Pulse Resp BP Pulse Ox 05/10/18 07:25 98.7 F 77 16 122/63 96 05/10/18 07:13 98.0 F 75 16 112/70 96 05/10/18 04:38 98.3 F 79 14 124/60 97 05/09/18 22:39 97.9 F 64 16 151/70 98 Intake and Output 05/09/18 05/10/18 05/10/18 23:59 07:59 15:59 Intake Total 0 / 0 0 / 0 Output Total 0 / 0 700 / 700 Balance 0 / 0 -700 / -700 Intake: Oral 0 / 0 0 / 0 Output: Urine 0 / 0 700 / 700 Other: # Voids 1 Weight 78.5 kg 78.54 kg Patient Weight 05/10/18 23:59 Weight 78.54 kg General: Conversant, No Apparent Distress HEENT: Atraumatic, Normocephaly, Mucus Membranes Moist Neck: No JVD, Normal carotid pulses Cardiac: Reg Rate and Rhythm, Normal S1 and S2, No Murmur Lungs: Normal Breath Sounds, No Wheeze, Rales, Rhonchi Neuro: Alert and responsive, No focal deficits noted Abdomen: Soft, Non-Tender Skin: No rashes noted on visualized skin Musculoskeletal: No Chest Wall Tenderness Extremities: No Clubbing, No Cyanosis, No Edema, Normal Pulses Results 05/09/18 23:22 05/09/18 23:22 Lab Results 05/09/18 05/09/18 05/09/18 23:22 23:22 23:22 WBC 6.5 Hgb 10.9 L Hct 31.5 L Plt Count 165 INR 1.0 APTT 34.9 Sodium 131 L Potassium 4.0 Chloride 98 Carbon Dioxide 25 BUN 19 Creatinine 0.86 Glucose 105 Calcium 9.3 Total Bilirubin 0.4 AST 18 ALT 14 Alkaline Phosphatase 72 Troponin I < 0.03 05/10/18 05:27 WBC Hgb Hct Plt Count INR APTT Sodium Potassium Chloride Carbon Dioxide BUN Creatinine Glucose Calcium Total Bilirubin AST ALT Alkaline Phosphatase Troponin I < 0.03 Short CBC 05/09/18 Range/Units 23:22 WBC 6.5 (4.3-11.1) K/mcL Hgb 10.9 L (11.5-15.4) g/dL Hct 31.5 L (35.3-44.9) % Plt Count 165 (140-400) K/mcL Neutrophils # 4.8 (1.6-8.9) K/mcL BMP 05/09/18 Range/Units 23:22 Sodium 131 L (136-145) mEq/L Potassium 4.0 (3.5-5.1) mEq/L Chloride 98 (98-107) mEq/L Carbon Dioxide 25 (23-29) mEq/L BUN 19 (8-23) mg/dL Creatinine 0.86 (0.60-1.20) mg/dL Glucose 105 (70-105) mg/dL Calcium 9.3 (8.6-10.3) mg/dL Cardiac Enzymes 05/10/18 05/09/18 Range/Units 05:27 23:22 Troponin I < 0.03 < 0.03 (< 0.04) ng/mL Liver Function 05/09/18 Range/Units 23:22 Total Bilirubin 0.4 (0.3-1.0) mg/dL Direct Bilirubin 0.1 (0.0-0.2) mg/dL AST 18 (13-39) Units/L ALT 14 (7-52) Units/L Alkaline Phosphatase 72 (34-104) Units/L Albumin 3.9 (3.5-5.7) g/dL Urine 05/09/18 Range/Units 23:34 Urine Color Dark Yellow (Yellow) Urine Clarity Turbid A (Clear) Urine pH 6.0 (5.0-8.0) pH Units Ur Specific [place] 1.016 (1.010-1.025) Urine Protein 30 H (Neg-Trace) mg/dL Urine Glucose (UA) Normal (Normal) mg/dL Active Medications Albuterol/Ipratropium (Duoneb) 3 ml IH [id number] PRN PRN Reason: Shortness Of Breath/Wheezing Stop: 11/08/18 23:20 Aspirin (Aspirin Ec) 81 mg PO DAILY [facility] Stop: 11/09/18 09:01 Last Admin: 05/10/18 09:09 Dose: 81 mg Clopidogrel Bisulfate (Plavix) 75 mg PO DAILY [facility] Stop: 11/09/18 09:01 Last Admin: 05/10/18 09:09 Dose: 75 mg Famotidine (Pepcid) 20 mg PO DAILY [facility] Stop: 11/09/18 09:01 Last Admin: 05/10/18 09:09 Dose: 20 mg Fluticasone Propionate (Flonase) 50 mcg NS BID PRN; Protocol PRN Reason: ALLERGIES Stop: 11/08/18 23:18 Furosemide (Lasix) 20 mg PO DAILY [facility] Stop: 11/09/18 09:01 Last Admin: 05/10/18 09:08 Dose: Not Given Heparin Sodium (Porcine) (Heparin) 5,000 unit SQ Q12HCO [facility] Stop: 11/09/18 06:01 Last Admin: 05/10/18 06:40 Dose: 5,000 unit Loratadine (Claritin) 10 mg PO DAILY [facility]; Protocol Stop: 11/09/18 09:01 Last Admin: 05/10/18 09:08 Dose: 10 mg Losartan Potassium (Cozaar) 50 mg PO DAILY [facility] Stop: 11/09/18 09:01 Last Admin: 05/10/18 09:08 Dose: 50 mg Metoprolol Tartrate (Lopressor) 12.5 mg PO BID [facility] Stop: 11/09/18 09:01 Last Admin: 05/10/18 09:08 Dose: 12.5 mg Naloxone HCl (Narcan) 0.4 mg IVP Q2M PRN PRN Reason: SEE COMMENTS Stop: 11/09/18 00:19 Nitroglycerin (Nitroglycerin) 0.4 mg SL Q5M PRN PRN Reason: Chest Pain Stop: 11/08/18 22:46 Last Admin: 05/09/18 23:04 Dose: 0.4 mg Omeprazole (Prilosec) 20 mg PO DAILY [facility] Stop: 11/09/18 09:01 Last Admin: 05/10/18 09:08 Dose: 20 mg Ondansetron HCl (Zofran) 4 mg IVP Q6HR PRN PRN Reason: Nausea And Vomiting Stop: 11/09/18 00:19 Pharmacy Profile Note (Patient Taking Own Medication) 1,200 each PO BID [facility] Stop: 11/09/18 09:01 Last Admin: 05/10/18 09:05 Dose: Not Given Psyllium Hydrophilic Mucilloid (Metamucil Fiber Singles Packet) 1 packet PO DAILY [facility] Stop: 11/09/18 09:01 Last Admin: 05/10/18 09:04 Dose: Not Given Vitamin B Complex/Vit C/Vit E (Stresstab) 1 each PO DAILY [facility] Stop: 11/09/18 09:01 Last Admin: 05/10/18 09:08 Dose: 1 each - Imaging and Cardiology Stress Test: report reviewed Echo: report reviewed Cardiac cath: report reviewed - EKG Interpretation EKG results cardiology: personally reviewed (SR, no ischemic changes), other (12 hr tele AVG HR 74, SR, occasional PAT) Consult Discharge Plan - Plan Referrals: Roopa Lambert, AGRICULTURE LABORATORY TECHNICIAN [Primary Care Provider] -
[2018-05-10] MEDS ORDERED: Isosorbide MONOnitrate (24 HR) 60 MG TAB.ER.24H PO SCH (10:15)
[2018-05-10 10:46] VITALS: BP 121/73
--- NOTE | 2018-05-10 15:27 | Discharge Summary ---
- NOTES TO OUTPATIENT PROVIDER Notes to Outpatient Provider: Follow up with Cardiology Date of Encounter: 05/10/18 Time of Encounter: 11:00 - Discharge Diagnosis (1) Chest pain Priority: Primary Status: Acute Qualifiers: Chest pain type: chest pain due to myocardial ischemia Ischemic chest pain type: unstable angina pectoris Qualified Code(s): I20.0 - Unstable angina (2) CAD (coronary artery disease) Priority: Primary Status: Acute Qualifiers: Coronary Disease-Associated Artery/Lesion type: [place] artery [place] vs. transplanted heart: [place] heart Associated angina: with stable angina Qualified Code(s): I25.118 - Atherosclerotic heart disease of [place] coronary artery with other forms of angina pectoris (3) Hypertension Priority: Secondary Status: Acute Qualifiers: Hypertension type: essential hypertension Qualified Code(s): I10 - Essential (primary) hypertension (4) COPD (chronic obstructive pulmonary disease) Priority: Secondary Status: Chronic Qualifiers: Qualified Code(s): J44.9 - Chronic obstructive pulmonary disease, unspecified (5) History of atrial fibrillation Priority: Secondary Status: Chronic Hospital course: Patient is a 77 female past medical history significant for coronary artery disease status post stenting of the LAD in 2017 presented to the emergency department at [facility] for chief complaint of chest pain. Patient states that she was in the kitchen when she experienced substernal chest pain that radiated down the left arm initially and then both arms and her jaw. This is associated with shortness of breath, but no nausea or diaphoresis. Patient recently underwent left heart catheterization on 04/11/2018 for chest pain and a 40% stenosis in the proximal LAD, in-stent restenosis, was noted. Patient presented to [facility] via squad, she received a loading dose aspirin and nitroglycerin. The nitroglycerin reportedly dropped patient's blood pressure by 30 mmHg, but she did not become hypotensive. [facility] patient's troponin was negative, EKG did not reveal any acute ST abnormalities. She was transferred to [facility] for further medical management. The patients hospital stay cardiology was consulted with recommendations for medical management. She admits to never taking Imdur 30 mg which was prescribed to her so we will have patient start this dose and follow-up with cardiology as an outpatient. - Time Spent with Patient Total time spent providing and/or coordinating discharge services: Time spent: Less than 30 minutes - Discharge Medications Prescriptions: New Isosorbide MONOnitrate (24 HR) [Imdur] 30 mg PO DAILY #30 tab.er.24h Continue Loratadine [Claritin] 10 mg PO BID Fish Oil/Dha/Epa [Fish Oil 1,200 mg Fish Oil] 1,200 mg PO BID Ascorbic Acid [Vitamin C] 500 mg PO DAILY Losartan Potassium [Cozaar] 25 mg PO BID Fluticasone Propionate Nasal [Flonase] 1 spray NS BID PRN PRN Reason: ALLERGIES Vitamin B Complex [B Complex] 1 tab PO DAILY Psyllium Husk [Daily Fiber] 0.52 gm PO DAILY Albuterol Sulfate [Albuterol Inhaler] 2 puff IH Q4H PRN PRN Reason: Shortness Of Breath Aspirin [Lo-Dose Aspirin EC] 81 mg PO DAILY Metoprolol [Lopressor] 12.5 mg PO BID Aspirin Enteric Coated [Aspirin EC] 81 mg PO DAILY #30 tablet. Clopidogrel [Plavix] 75 mg PO DAILY #30 tablet Furosemide [Lasix] 20 mg PO DAILY #30 tablet Metoprolol [Lopressor] 12.5 mg PO BID #30 tablet Duoneb Ranitidine HCl [Heartburn Relief] 150 mg PO DAILY Pantoprazole Sodium [Protonix] 40 mg PO DAILY EPINEPHrine [Epipen] 0.3 mg IM ONCE PRN PRN Reason: Anaphylaxis Home Medications: Loratadine [Claritin] 10 mg PO BID 01/04/16 [History] Fish Oil/Dha/Epa [Fish Oil 1,200 mg Fish Oil] 1,200 mg PO BID 01/05/16 [History] Ascorbic Acid [Vitamin C] 500 mg PO DAILY 05/02/16 [History] Losartan Potassium [Cozaar] 25 mg PO BID 05/14/16 [History] Fluticasone Propionate Nasal [Flonase] 1 spray NS BID PRN 10/23/16 [History] Pantoprazole Sodium [Protonix] 40 mg PO DAILY 10/23/16 [History] Ranitidine HCl [Heartburn Relief] 150 mg PO DAILY 10/23/16 [History] EPINEPHrine [Epipen] 0.3 mg IM ONCE PRN 05/13/17 [History] Psyllium Husk [Daily Fiber] 0.52 gm PO DAILY 06/01/17 [History] Vitamin B Complex [B Complex] 1 tab PO DAILY 06/01/17 [History] Albuterol Sulfate [Albuterol Inhaler] 2 puff IH Q4H PRN 04/10/18 [History] Aspirin [Lo-Dose Aspirin EC] 81 mg PO DAILY 04/11/18 [History] Metoprolol [Lopressor] 12.5 mg PO BID 04/11/18 [History] Aspirin Enteric Coated [Aspirin EC] 81 mg PO DAILY #30 tablet.dr 04/12/18 [Rx] Clopidogrel [Plavix] 75 mg PO DAILY #30 tablet 04/12/18 [Rx] Furosemide [Lasix] 20 mg PO DAILY #30 tablet 04/12/18 [Rx] Metoprolol [Lopressor] 12.5 mg PO BID #30 tablet 04/12/18 [Rx] Duoneb 05/09/18 [History] Isosorbide MONOnitrate (24 HR) [Imdur] 30 mg PO DAILY #30 tab.er.24h 05/10/18 [Rx] Allergies/Adverse Reactions: Allergy/AdvReac Type Severity Reaction Status Date / Time atorvastatin Allergy See Verified 09/23/17 13:30 Comments ciprofloxacin Allergy Redness of Verified 09/23/17 13:30 Skin dextromethorphan Allergy Rash Verified 09/23/17 13:30 [From Capmist DM] doxycycline Allergy Redness of Verified 09/23/17 13:30 Skin guaifenesin [From Capmist DM] Allergy Rash Verified 09/23/17 13:30 Penicillins Allergy Redness of Verified 09/23/17 13:30 Skin pseudoephedrine Allergy Rash Verified 09/23/17 13:30 [From Capmist DM] Amoxicillin AdvReac Abdominal Verified 09/23/17 13:30 Pain Benzonatate AdvReac nausea/vomi Verified 09/23/17 13:30 [From Tessalon Perles] ting cetirizine AdvReac Insomnia Verified 09/23/17 13:30 hydrocodone [From Vicodin] AdvReac nausea/vomi Verified 09/23/17 13:30 ting meloxicam AdvReac Muscle Pain Verified 09/23/17 13:30 mometasone furoate AdvReac Nose Bleed Verified 09/23/17 13:30 [From Nasonex] nitrofurantoin AdvReac See Verified 09/23/17 13:30 Comments oxycodone [From Percocet] AdvReac nausea/vomi Verified 09/23/17 13:30 ting pravastatin AdvReac Muscle Pain Verified 09/23/17 13:30 sulfamethoxazole AdvReac Weakness Verified 09/23/17 13:30 [From Bactrim] trimethoprim [From Bactrim] AdvReac Weakness Verified 09/23/17 13:30 Date of admission: 05/09/18 22:05 Primary care physician: Roopa Lambert CNP Consults: 05/10/18 00:17 Consult to Cardiology [CONS] Routine Comment: Consulting Provider: Cardiology Dain[place] Reason for Consult: hx of CAD w/ stent LAD. LHC in april shows partial restenosis. patient presented with CP. Call Completed: No - Constitutional Vitals: Temp Pulse Resp BP Pulse Ox 98.0 F 70 16 121/73 96 05/10/18 10:45 05/10/18 10:45 05/10/18 10:45 05/10/18 10:45 05/10/18 10:45 Exam: Gen.: Nonacute distress, alert and oriented 3 Skin: Normal color - Patient Status Disposition: Home, Self-Care - Discharge Instructions Follow Up With: Roopa Lambert CNP [Primary Care Provider] - Additional Instructions: Follow-up appointments: If there is not an appointment listed below, please call your physician and schedule a follow-up appointment. If you have congestive heart failure and your symptoms return, make an appointment with your physician. Medication List: Carry an up to date list of medications you are taking at all time. We have given you an updated medication list including any new medications that you have been prescribed. Please provide that list to your primary provider Symptoms: If your condition changes or you experience any of the following symptoms, notify your physician immediately: Unusual or worsening pain, fever, persistent nausea and vomiting, bleeding, increase in swelling (especially in your legs), sudden weight gain, extreme dizziness, chest pain, increased drainage or redness from a wound or incision. Go to the emergency department if you experience a problem with breathing. Weights: If you have a history of swelling or shortness of breath, weigh yourself daily and notify your physician if you have a weight gain of two or more pounds in one day or 5 or more pounds in a week. If you experience any of the warning signs for stroke: Sudden numbness or weakness of the face, arm or leg; especially on one side of the body, sudden confusion, trouble speaking or understanding, sudden trouble seeing in one or both eyes, sudden trouble walking, dizziness, loss of balance or coordination, sudden sever headache with no cause; Call 911 or go to the emergency room. Stroke is a medical emergency. Some risk factors for stroke: Age, cigarette smoking, diabetes, excessive alcohol consumption, family history, high blood pressure, overweight, physical inactivity, prior stroke, heart attack, diagnosis of carotid artery stenosis or other artery disease. If you smoke, STOP: Smoking or tobacco use significantly increases your risk of heart and lung disease. Your chance of disease greatly increases if you continue to smoke. For more information, call the [place] tobacco quit line for smoking cessation -NOW ( )
--- NOTE | 2018-05-10 21:19 | Electrocardiograph Report ---
[place] [id number] Test Date: 2018-05-09 Pat Name: Selam Keyes Department: 114 Room: [facility] Gender: F Intake Counselor: [id number] : 1940 Requested By: Jesse Curtis Order Number: [id number] Reading MD: Erica Moreno Measurements Intervals [place] Rate: 61 P: 70 VT: 183 QRS: 40 QRSD: 102 T: 46 QT: 404 QTc: 408 Interpretive Statements SINUS RHYTHM Electronically Signed On 05-10-2018 21:17:49 EST by Erica Moreno
== END 2018-05-10 16:22 | disposition home or self-care (01) ==
LOC: 3NENU
PROVIDERS: ADMIT Internal Medicine; ATTEND Internal Medicine

== ENCOUNTER 2018-10-13 10:54 | Observation (INO) ==
[2018-10-13] MEDS ORDERED: Ondansetron 4 MG/2 ML VIAL IVP ONE (11:29)
--- NOTE | 2018-10-13 11:30 | Emergency Department Note ---
Disposition Clinical Impression: Chest pain in adult Disposition: Admitted As Inpatient Condition: Good Referrals: Roopa Lambert CNP [Primary Care Provider] - Forms: ED Satisfaction Letter Time of Disposition: 13:59 Chest Pain HPI - General Chief Complaint: ED Chest Pain Stated Complaint: chest pain Time Seen by Provider: 10/13/18 10:59 Source: patient Limitations: no limitations Vital Signs Reviewed: Yes Nursing Notes Reviewed: Yes - History of Present Illness HPI Narrative: 78-year-old female past medical history CAD with 1 stent in 2017, hypertension, hyperlipidemia, Afib presents today with acute chest pain for 3 hours. Chest pain starts on her left shoulder and radiates to her right shoulder. Pain has been continuous, sharp in nature at rest but worse with movement. She has a history of intermittent chest pain in the past, but this episode is more severe. Denies anything makes the pain better. Movement makes the pain worse. She has not taken anything for the pain. Current pain 10 out of 10. She denies any diaphoresis, she does admit to dyspnea and nausea due to the pain. She also admits to accompanied headaches, blurry vision, epigastric pain. Denies any recent illness, fever, chills, cough, vomiting, diarrhea, abdominal pain, dysuria. She denies history of smoking, alcohol use. No previous stroke or CO to her knowledge. Reports s/p cholecystectomy and appendectomy. Pt complaint: chest pain Onset (ago): hour(s) (4) Time: 12:00 Duration: constant Onset: during rest Pain Location: left chest Severity: severe Severity scale (1-10): 10 Quality: sharp Pain Radiation: RUE Improves with: nothing Worsens with: movement Associated symptoms: Reports: nausea Treatments prior to arrival chest pain: none - Related Data Home Medications Medication Instructions Recorded Confirmed Loratadine [Claritin] 10 mg PO BID 01/04/16 05/09/18 Fish Oil/Dha/Epa [Fish Oil 1,200 1,200 mg PO BID 01/05/16 05/09/18 mg Fish Oil] Ascorbic Acid [Vitamin C] 500 mg PO DAILY 05/02/16 05/09/18 Losartan Potassium [Cozaar] 25 mg PO BID 05/14/16 05/09/18 Fluticasone Propionate Nasal 1 spray NS BID PRN 10/23/16 05/09/18 [Flonase] Pantoprazole Sodium [Protonix] 40 mg PO DAILY 10/23/16 05/09/18 Ranitidine HCl [Heartburn Relief] 150 mg PO DAILY 10/23/16 05/09/18 EPINEPHrine [Epipen] 0.3 mg IM ONCE PRN 05/13/17 05/09/18 Vitamin B Complex [B Complex] 1 tab PO DAILY 06/01/17 05/09/18 Albuterol Sulfate [Proventil 2 puff IH Q4H PRN 04/10/18 05/09/18 Inhaler] Aspirin [Lo-Dose Aspirin EC] 81 mg PO DAILY 04/11/18 05/09/18 Metoprolol [Lopressor] 50 mg PO BID 10/13/18 10/13/18 Previous Rx's Medication Instructions Recorded Furosemide [Lasix] 20 mg PO DAILY #30 tablet 04/12/18 Allergies Allergy/AdvReac Type Severity Reaction Status Date / Time atorvastatin Allergy See Verified 09/23/17 13:30 Comments ciprofloxacin Allergy Redness of Verified 09/23/17 13:30 Skin dextromethorphan Allergy Rash Verified 09/23/17 13:30 [From Capmist DM] doxycycline Allergy Redness of Verified 09/23/17 13:30 Skin guaifenesin [From Capmist DM] Allergy Rash Verified 09/23/17 13:30 Penicillins Allergy Redness of Verified 09/23/17 13:30 Skin pseudoephedrine Allergy Rash Verified 09/23/17 13:30 [From Capmist DM] Amoxicillin AdvReac Abdominal Verified 09/23/17 13:30 Pain Benzonatate AdvReac nausea/vomi Verified 09/23/17 13:30 [From Tessalon Perles] ting cetirizine AdvReac Insomnia Verified 09/23/17 13:30 hydrocodone [From Vicodin] AdvReac nausea/vomi Verified 09/23/17 13:30 ting meloxicam AdvReac Muscle Pain Verified 09/23/17 13:30 mometasone furoate AdvReac Nose Bleed Verified 09/23/17 13:30 [From Nasonex] nitrofurantoin AdvReac See Verified 09/23/17 13:30 Comments oxycodone [From Percocet] AdvReac nausea/vomi Verified 09/23/17 13:30 ting pravastatin AdvReac Muscle Pain Verified 09/23/17 13:30 sulfamethoxazole AdvReac Weakness Verified 09/23/17 13:30 [From Bactrim] trimethoprim [From Bactrim] AdvReac Weakness Verified 09/23/17 13:30 Review of Systems: As Per HPI Constitutional: Denies: fever, chills Eyes: Denies: eye pain ENT ED: Denies: ear pain Cardiovascular: Reports: chest pain, dyspnea on exertion Respiratory: Reports: dyspnea. Denies: cough, wheezes Gastrointestinal: Reports: nausea. Denies: abdominal pain, vomiting, diarrhea Genitourinary: Denies: urgency, frequency Musculoskeletal: Denies: back pain Integumentary: Denies: rash Neurological: Reports: headache. 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 - Social History Smoking Status: Never smoker Alcohol use: Reports: none Drug use: Reports: none Physical Exam - General Limitations: no limitations General appearance: alert - Head Head exam: atraumatic, normocephalic - Eye Eye exam: Present: normal appearance, PERRL - Expanded Eye Exam Pupils: Left: reactive - ENT ENT exam: normal exam, normal oropharynx, mucous membranes moist - Expanded ENT Exam External ear exam: Present: normal external inspection Mouth exam: Present: normal external inspection Teeth exam: Present: normal inspection Throat exam: Present: normal inspection - Neck Neck exam: Present: normal inspection, full ROM, trachea midline - Chest Chest inspection: Present: normal inspection, symmetric chest wall rise - Respiratory Respiratory exam: Present: normal lung sounds bilaterally - Cardiovascular Cardiovascular exam: Present: normal rhythm, bradycardia, normal heart sounds, other (non reproducible chest pain) - Abdominal Exam Abdominal exam: Present: soft, tenderness. Absent: distention, guarding, rebound, rigidity Abdominal tenderness: Present: epigastrium - Extremities Exam Extremities exam: Present: normal inspection, full ROM. Absent: tenderness, pedal edema - Expanded Upper Extremity Exam Shoulder exam: Present: normal inspection, full ROM Arm exam: Present: normal inspection, full ROM Elbow exam: Present: normal inspection, full ROM Forearm/Wrist exam: Present: normal inspection, full ROM Hand exam: Present: normal inspection, full ROM Vascular exam: Normal: capillary refill, radial pulse - Expanded Lower Extremity Exam Hip/Pelvis exam: Present: normal inspection, full ROM Upper leg exam: Present: normal inspection, full ROM Knee exam: Present: normal inspection, full ROM Lower leg exam: Present: normal inspection, full ROM Ankle exam: Present: normal inspection, full ROM Foot/toe exam: Present: normal inspection, full ROM Neurovascular/Tendon exam: Absent: motor deficit, sensory deficit, tendon deficit - Back Exam Back exam: Present: normal inspection, full ROM. Absent: tenderness - Neurological Exam Neurological exam: Present: alert, oriented X3 - Expanded Neurological Exam Patient oriented to: Present: person, place, time Coma Scale Eye Opening: Spontaneous Coma Scale Motor Response: Obeys Commands Coma Scale Verbal Response: Oriented Coma Scale Total: 15 - Psychiatric Psychiatric exam: Present: normal affect, normal mood - Skin Skin exam: Present: warm, dry, intact, normal color Course Course Narrative: patient presents with chest pain r/o ACS. EKG NSR without acute changes. - Reevaluation(s) Reevaluation #1: Patient received Zofran and ASA without improvement of chest pain. CT abdomen, CXR, Troponin, blood work unremarkable. Time: 13:57 - Consultations Consultation #1: Admitting hospitalist Dr. Zuleta Time: 13:57 Vital Signs Temperature 97.7 F 10/13/18 11:05 Pulse Rate 55 10/13/18 11:05 Respiratory Rate 17 10/13/18 11:05 Blood Pressure 153/68 10/13/18 11:05 O2 Sat by Pulse Oximetry 100 10/13/18 11:05 Temperature 97.7 F 10/13/18 11:05 Pulse Rate 48 10/13/18 13:00 Respiratory Rate 16 10/13/18 13:00 Blood Pressure 124/65 10/13/18 13:00 O2 Sat by Pulse Oximetry 100 10/13/18 13:00 Oxygen Delivery Oxygen Delivery Room Air Chest Pain - MDM Narrative Medical decision making narrative: 78F presents with acute chest pain. HEART score 4 (Age, HTN, CAD with previous stent). CXR, CT abdomen, EKG, troponin overall unremarkable. Chest pain unimproved with ASA. Patient to be admitted to [facility] for CP r/o ACS. Accepted admission by Dr. Zuleta. - Medical Records Medical records reviewed: Yes I reviewed the patient's medical records. - Lab Data Lab results reviewed: Yes I reviewed the patient's lab results. Result diagrams: 10/13/18 11:20 10/13/18 11:20 Lab Results 10/13/18 10/13/18 10/13/18 Range/Units 11:20 11:20 11:20 WBC 5.7 (4.3-11.1) K/mcL RBC 4.49 (3.82-4.97) M/mcL Hgb 13.4 (11.5-15.4) g/dL Hct 38.8 (35.3-44.9) % MCV 86.4 (83.0-100.0) fL MCH 29.8 (28.0-33.3) pg MCHC 34.5 (31.6-35.5) g/dL RDW 12.5 (11.5-14.5) % Plt Count 160 (140-400) K/mcL MPV 9.2 L (9.4-12.4) fL Immature Gran % 0.4 (0-4) % Seg Neutrophils % 62.6 % Lymphocytes % 27.9 % Monocytes % 7.2 % Eosinophils % 1.4 % Basophils % 0.5 % Neutrophils # 3.5 (1.6-8.9) K/mcL Lymphocytes # 1.6 (0.6-4.6) K/mcL Monocytes # 0.4 (0.0-1.3) K/mcL Eosinophils # 0.1 (0.0-0.6) K/mcL Basophils # 0.0 (0.0-0.2) K/mcL PT 11.0 (9.4-12.1) Seconds INR 1.0 APTT 36.5 H (26.0-36.0) Seconds Sodium (136-145) mEq/L Potassium (3.5-5.1) mEq/L Chloride (98-107) mEq/L Carbon Dioxide (23-29) mEq/L BUN (8-23) mg/dL Creatinine (0.60-1.20) mg/dL Est GFR ( Amer) (> 60) Est GFR (Non-Af Amer) (> 60) BUN/Creatinine Ratio (6-26) Glucose (70-105) mg/dL Calculated Osmolality (280-300) Calcium (8.6-10.3) mg/dL Total Bilirubin (0.3-1.0) mg/dL Direct Bilirubin (0.0-0.2) mg/dL Indirect Bilirubin (0.0-1.2) mg/dL AST (13-39) Units/L ALT (7-52) Units/L Alkaline Phosphatase (34-104) Units/L Troponin I (< 0.04) ng/mL B-Natriuretic Peptide 89 (Less than 100) pg/mL Serum Total Protein (6.4-8.9) g/dL Albumin (3.5-5.7) g/dL Globulin (2.4-3.5) g/dL Albumin/Globulin Ratio (1.1-2.2) Lipase (11-82) Units/L /10/24 Range/Units 11:20 WBC (4.3-11.1) K/mcL RBC (3.82-4.97) M/mcL Hgb (11.5-15.4) g/dL Hct (35.3-44.9) % MCV (83.0-100.0) fL MCH (28.0-33.3) pg MCHC (31.6-35.5) g/dL RDW (11.5-14.5) % Plt Count (140-400) K/mcL MPV (9.4-12.4) fL Immature Gran % (0-4) % Seg Neutrophils % % Lymphocytes % % Monocytes % % Eosinophils % % Basophils % % Neutrophils # (1.6-8.9) K/mcL Lymphocytes # (0.6-4.6) K/mcL Monocytes # (0.0-1.3) K/mcL Eosinophils # (0.0-0.6) K/mcL Basophils # (0.0-0.2) K/mcL PT (9.4-12.1) Seconds INR APTT (26.0-36.0) Seconds Sodium 134 L (136-145) mEq/L Potassium 3.9 (3.5-5.1) mEq/L Chloride 97 L (98-107) mEq/L Carbon Dioxide 30 H (23-29) mEq/L BUN 15 (8-23) mg/dL Creatinine 0.82 (0.60-1.20) mg/dL Est GFR ( Amer) > 60 (> 60) Est GFR (Non-Af Amer) > 60 (> 60) BUN/Creatinine Ratio 18 (6-26) Glucose 96 (70-105) mg/dL Calculated Osmolality 279 L (280-300) Calcium 9.9 (8.6-10.3) mg/dL Total Bilirubin 0.6 (0.3-1.0) mg/dL Direct Bilirubin 0.1 (0.0-0.2) mg/dL Indirect Bilirubin 0.5 (0.0-1.2) mg/dL AST 18 (13-39) Units/L ALT 14 (7-52) Units/L Alkaline Phosphatase 62 (34-104) Units/L Troponin I < 0.03 (< 0.04) ng/mL B-Natriuretic Peptide (Less than 100) pg/mL Serum Total Protein 7.7 (6.4-8.9) g/dL Albumin 4.4 (3.5-5.7) g/dL Globulin 3.3 (2.4-3.5) g/dL Albumin/Globulin Ratio 1.3 (1.1-2.2) Lipase 33 (11-82) Units/L - Radiology Data Radiology results reviewed: Yes I reviewed the patient's radiology results. - EKG Data EKG attestation: Yes I reviewed and interpreted this EKG. EKG results narrative: NSR. Borderline intraventricular conduction delay. No acute changes from previous EKG. HR 53 QT 434 EKG shows normal: sinus rhythm Rate: bradycardia Rhythm: NSR When compared to previous EKG there are: no significant changes Interpretation: no acute changes Heart Score - Score History: Slightly Suspicious EKG: Normal Age: Greater than 65 Risk Factors: Equal/Greater than 3 risk factor or history of atherosclerotic disease Troponin: Less than normal limit HEART Score Total: 4 Attestation Statement - Attestation Attestation: Speedy Patel D.O., examined this patient and my medical decision-making was reviewed with the Resident Physician. I agree with the documented findings, disposition and treatment plan as described except to the extent set forth below.
[2018-10-13 12:06] LABS: Basophils % 0.5 %; Eosinophils # 0.1 K/mcL (0.0-0.6); Eosinophils % 1.4 %; Hematocrit 38.8 % (35.3-44.9); Hemoglobin 13.4 g/dL (11.5-15.4); Immature Granulocytes % 0.4 % (0-4); Lymphocytes # 1.6 K/mcL (0.6-4.6); Lymphocytes % 27.9 %; Mean Corpuscular HGB Conc 34.5 g/dL (31.6-35.5); Mean Corpuscular Hemoglobin 29.8 pg (28.0-33.3); Mean Corpuscular Volume 86.4 fL (83.0-100.0); Mean Platelet Volume 9.2 fL (9.4-12.4); Monocytes # 0.4 K/mcL (0.0-1.3); Monocytes % 7.2 %; Neutrophils # 3.5 K/mcL (1.6-8.9); Platelet Count 160 K/mcL (140-400); Red Blood Count 4.49 M/mcL (3.82-4.97); Red Cell Distribution Width 12.5 % (11.5-14.5); Segmented Neutrophils % 62.6 %; White Blood Count 5.7 K/mcL (4.3-11.1)
[2018-10-13 12:22] LABS: Activated Partial Thrombo Time 36.5 Seconds (26.0-36.0)
[2018-10-13 12:32] LABS: Alanine Aminotransferase 14 Units/L (7-52); Albumin 4.4 g/dL (3.5-5.7); Albumin/Globulin Ratio 1.3 (1.1-2.2); Alkaline Phosphatase 62 Units/L (34-104); Aspartate Amino Transferase 18 Units/L (13-39); BUN/Creatinine Ratio 18 (6-26); Bilirubin,Direct 0.1 mg/dL (0.0-0.2); Bilirubin,Indirect 0.5 mg/dL (0.0-1.2); Bilirubin,Total 0.6 mg/dL (0.3-1.0); Blood Urea Nitrogen 15 mg/dL (8-23); Calcium 9.9 mg/dL (8.6-10.3); Carbon Dioxide 30 mEq/L (23-29); Chloride 97 mEq/L (98-107); Globulin 3.3 g/dL (2.4-3.5); Glucose 96 mg/dL (70-105); Lipase 33 Units/L (11-82); Osmolality,Calculated 279 (280-300); Potassium 3.9 mEq/L (3.5-5.1); Sodium 134 mEq/L (136-145); Total Protein 7.7 g/dL (6.4-8.9); Troponin I < 0.03 ng/mL (< 0.04); eGFR For African Americans > 60 (> 60); eGFR For Non-African Americans > 60 (> 60)
--- NOTE | 2018-10-13 13:10 | Emergency Department Note ---
Disposition Clinical Impression: Chest pain in adult Chest pain Qualifiers: Chest pain type: unspecified Qualified Code(s): R07.9 - Chest pain, unspecified Abdominal pain Qualifiers: Abdominal location: epigastric Qualified Code(s): R10.13 - Epigastric pain Disposition: Admitted As Inpatient Condition: Good Referrals: Roopa Lambert CNP [Primary Care Provider] - Forms: ED Satisfaction Letter Time of Disposition: 14:11 General Adult HPI - General Chief complaint: ED Chest Pain Stated complaint: chest pain Time Seen by Provider: 10/13/18 10:59 Source: patient Limitations: no limitations - History of Present Illness Pain Scale: 7 - Related Data Home Medications Medication Instructions Recorded Confirmed Loratadine [Claritin] 10 mg PO BID 01/04/16 10/13/18 Fish Oil/Dha/Epa [Fish Oil 1,200 1,200 mg PO BID 01/05/16 10/13/18 mg Fish Oil] Ascorbic Acid [Vitamin C] 500 mg PO DAILY 05/02/16 10/13/18 Losartan Potassium [Cozaar] 25 mg PO BID 05/14/16 10/13/18 Fluticasone Propionate Nasal 1 spray NS BID PRN 10/23/16 10/13/18 [Flonase] Pantoprazole Sodium [Protonix] 40 mg PO DAILY 10/23/16 10/13/18 Ranitidine HCl [Heartburn Relief] 150 mg PO DAILY 10/23/16 10/13/18 EPINEPHrine [Epipen] 0.3 mg IM ONCE PRN 05/13/17 10/13/18 Vitamin B Complex [B Complex] 1 tab PO DAILY 06/01/17 10/13/18 Albuterol Sulfate [Proventil 2 puff IH Q4H PRN 04/10/18 10/13/18 Inhaler] Aspirin [Lo-Dose Aspirin EC] 81 mg PO DAILY 04/11/18 10/13/18 Metoprolol [Lopressor] 50 mg PO BID 10/13/18 10/13/18 Previous Rx's Medication Instructions Recorded Furosemide [Lasix] 20 mg PO DAILY #30 tablet 04/12/18 Allergies Allergy/AdvReac Type Severity Reaction Status Date / Time atorvastatin Allergy See Verified 09/23/17 13:30 Comments ciprofloxacin Allergy Redness of Verified 09/23/17 13:30 Skin dextromethorphan Allergy Rash Verified 09/23/17 13:30 [From Capmist DM] doxycycline Allergy Redness of Verified 09/23/17 13:30 Skin guaifenesin [From Capmist DM] Allergy Rash Verified 09/23/17 13:30 Penicillins Allergy Redness of Verified 09/23/17 13:30 Skin pseudoephedrine Allergy Rash Verified 09/23/17 13:30 [From Capmist DM] Amoxicillin AdvReac Abdominal Verified 09/23/17 13:30 Pain Benzonatate AdvReac nausea/vomi Verified 09/23/17 13:30 [From Tessalon Perles] ting cetirizine AdvReac Insomnia Verified 09/23/17 13:30 hydrocodone [From Vicodin] AdvReac nausea/vomi Verified 09/23/17 13:30 ting meloxicam AdvReac Muscle Pain Verified 09/23/17 13:30 mometasone furoate AdvReac Nose Bleed Verified 09/23/17 13:30 [From Nasonex] nitrofurantoin AdvReac See Verified 09/23/17 13:30 Comments oxycodone [From Percocet] AdvReac nausea/vomi Verified 09/23/17 13:30 ting pravastatin AdvReac Muscle Pain Verified 09/23/17 13:30 sulfamethoxazole AdvReac Weakness Verified 09/23/17 13:30 [From Bactrim] trimethoprim [From Bactrim] AdvReac Weakness Verified 09/23/17 13:30 Constitutional: Denies: fever, chills Eyes: Denies: eye pain ENT ED: Denies: ear pain Cardiovascular: Reports: chest pain, dyspnea on exertion Respiratory: Reports: dyspnea. Denies: cough, wheezes Gastrointestinal: Reports: nausea. Denies: abdominal pain, vomiting, diarrhea Genitourinary: Denies: urgency, frequency Musculoskeletal: Denies: back pain Integumentary: Denies: rash Neurological: Reports: headache. 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 - Social History Smoking Status: Never smoker Smokeless Tobacco Status: No Alcohol use: Reports: none Drug use: Reports: none Physical Exam - General Limitations: no limitations General appearance: alert Course Vital Signs Temperature 97.7 F 10/13/18 11:05 Pulse Rate 55 10/13/18 11:05 Respiratory Rate 17 10/13/18 11:05 Blood Pressure 153/68 10/13/18 11:05 O2 Sat by Pulse Oximetry 100 10/13/18 11:05 Temperature 97.7 F 10/13/18 11:05 Pulse Rate 52 10/13/18 14:09 Respiratory Rate 16 10/13/18 14:09 Blood Pressure 113/71 10/13/18 14:09 O2 Sat by Pulse Oximetry 100 10/13/18 14:09 Oxygen Delivery Oxygen Delivery Room Air Medical Decision Making - Lab Data Lab results reviewed: Yes I reviewed the patient's lab results. Result diagrams: 10/13/18 11:20 10/13/18 11:20 Lab Results 10/13/18 10/13/18 10/13/18 Range/Units 11:20 11:20 11:20 WBC 5.7 (4.3-11.1) K/mcL RBC 4.49 (3.82-4.97) M/mcL Hgb 13.4 (11.5-15.4) g/dL Hct 38.8 (35.3-44.9) % MCV 86.4 (83.0-100.0) fL MCH 29.8 (28.0-33.3) pg MCHC 34.5 (31.6-35.5) g/dL RDW 12.5 (11.5-14.5) % Plt Count 160 (140-400) K/mcL MPV 9.2 L (9.4-12.4) fL Immature Gran % 0.4 (0-4) % Seg Neutrophils % 62.6 % Lymphocytes % 27.9 % Monocytes % 7.2 % Eosinophils % 1.4 % Basophils % 0.5 % Neutrophils # 3.5 (1.6-8.9) K/mcL Lymphocytes # 1.6 (0.6-4.6) K/mcL Monocytes # 0.4 (0.0-1.3) K/mcL Eosinophils # 0.1 (0.0-0.6) K/mcL Basophils # 0.0 (0.0-0.2) K/mcL PT 11.0 (9.4-12.1) Seconds INR 1.0 APTT 36.5 H (26.0-36.0) Seconds Sodium (136-145) mEq/L Potassium (3.5-5.1) mEq/L Chloride (98-107) mEq/L Carbon Dioxide (23-29) mEq/L BUN (8-23) mg/dL Creatinine (0.60-1.20) mg/dL Est GFR ( Amer) (> 60) Est GFR (Non-Af Amer) (> 60) BUN/Creatinine Ratio (6-26) Glucose (70-105) mg/dL Calculated Osmolality (280-300) Calcium (8.6-10.3) mg/dL Total Bilirubin (0.3-1.0) mg/dL Direct Bilirubin (0.0-0.2) mg/dL Indirect Bilirubin (0.0-1.2) mg/dL AST (13-39) Units/L ALT (7-52) Units/L Alkaline Phosphatase (34-104) Units/L Troponin I (< 0.04) ng/mL B-Natriuretic Peptide 89 (Less than 100) pg/mL Serum Total Protein (6.4-8.9) g/dL Albumin (3.5-5.7) g/dL Globulin (2.4-3.5) g/dL Albumin/Globulin Ratio (1.1-2.2) Lipase (11-82) Units/L 10/13/18 Range/Units 11:20 WBC (4.3-11.1) K/mcL RBC (3.82-4.97) M/mcL Hgb (11.5-15.4) g/dL Hct (35.3-44.9) % MCV (83.0-100.0) fL MCH (28.0-33.3) pg MCHC (31.6-35.5) g/dL RDW (11.5-14.5) % Plt Count (140-400) K/mcL MPV (9.4-12.4) fL Immature Gran % (0-4) % Seg Neutrophils % % Lymphocytes % % Monocytes % % Eosinophils % % Basophils % % Neutrophils # (1.6-8.9) K/mcL Lymphocytes # (0.6-4.6) K/mcL Monocytes # (0.0-1.3) K/mcL Eosinophils # (0.0-0.6) K/mcL Basophils # (0.0-0.2) K/mcL PT (9.4-12.1) Seconds INR APTT (26.0-36.0) Seconds Sodium 134 L (136-145) mEq/L Potassium 3.9 (3.5-5.1) mEq/L Chloride 97 L (98-107) mEq/L Carbon Dioxide 30 H (23-29) mEq/L BUN 15 (8-23) mg/dL Creatinine 0.82 (0.60-1.20) mg/dL Est GFR ( Amer) > 60 (> 60) Est GFR (Non-Af Amer) > 60 (> 60) BUN/Creatinine Ratio 18 (6-26) Glucose 96 (70-105) mg/dL Calculated Osmolality 279 L (280-300) Calcium 9.9 (8.6-10.3) mg/dL Total Bilirubin 0.6 (0.3-1.0) mg/dL Direct Bilirubin 0.1 (0.0-0.2) mg/dL Indirect Bilirubin 0.5 (0.0-1.2) mg/dL AST 18 (13-39) Units/L ALT 14 (7-52) Units/L Alkaline Phosphatase 62 (34-104) Units/L Troponin I < 0.03 (< 0.04) ng/mL B-Natriuretic Peptide (Less than 100) pg/mL Serum Total Protein 7.7 (6.4-8.9) g/dL Albumin 4.4 (3.5-5.7) g/dL Globulin 3.3 (2.4-3.5) g/dL Albumin/Globulin Ratio 1.3 (1.1-2.2) Lipase 33 (11-82) Units/L - Radiology Data Radiology results reviewed: Yes I reviewed the patient's radiology results. Chest X-Ray 10/13/18 10:59 IMPRESSION: No acute abnormality. D/ / Rell Woodward MD / Rell Woodward MD Interpreting Provider: Rell Woodward MD Abdomen/Pelvis CT 10/13/18 11:53 IMPRESSION: No gross acute intra-abdominal process. Diverticulosis, without lisa diverticulitis. Small hiatal hernia. D/ / Tavares Blanchard MD / Tavares Blanchard MD Interpreting Provider: Tavares Blanchard MD Attestation Statement - Attestation Attestation: Speedy Patel D.O., examined this patient and my medical decision-making was reviewed with the Resident Physician. I agree with the documented findings, disposition and treatment plan as described except to the extent set forth below. 78-year-old female history of CAD with one stent placed in 2017, hypertension who presents with a complaint of chest pain. Reports intermittent chest pain for several days. Says it lasts for less than an hour. Described as sharp on the left side of her chest that goes to the right. Reports he was up and her neck as well she felt short of breath and nauseous. Symptoms are similar to when she required her last stent. No trauma. She is also had some epigastric abdominal pain. No other complaints. General: Alert, no acute distress HENT: Normocephalic, Atraumatic Neck: No JVD Cardiovascular: Regular rate and rhythm. No appreciable murmurs Respiratory: Lungs CTAB. No wheezing/rhonchi Abdominal: Soft, non tender. No peritoneal findings Extremities: No peripheral edema Neuro: Alert, Mentating appropriately, No focal deficits Skin: Warm, Dry Plan: Patient has numerous risks factors for ACS. Plan for EKG, chest x-ray, CT of the abdomen, labs and likely admission. ED Procedure Note: EKG interpretation - I agree with the resident physician's documentation and interpretation of the patient's EKG. Sinus bradycardia with rate of 53. Normal axis. Normal intervals. Normal R-wave progression. No gross ST elevations or depressions. No acute ischemic findings. Imaging and labs reviewed. Troponin is normal. CT with a hiatal hernia without other acute findings. The patient is at least moderate risk by heart score. She warrants further admission for observation. Patient admitted to the hospitalist service.
[2018-10-13] MEDS ORDERED: Aspirin 81 MG TAB.CHEW PO ONE (13:15)
[2018-10-13] MEDS ORDERED: Acetaminophen 325 MG TABLET PO PRN (14:51)
[2018-10-13] MEDS ORDERED: Ondansetron 4 MG/2 ML VIAL IVP PRN (14:51)
[2018-10-13] MEDS ORDERED: *HR* HYDROcodone/Acet 5/325 mg TABLET PO PRN (14:51)
[2018-10-13] MEDS ORDERED: Naloxone 0.4 MG/ML INJ IVP PRN (14:51)
[2018-10-13] MEDS ORDERED: Fluticasone Propionate Nasal 50 MCG/SPRAY BOTTLE NS PRN (14:53)
--- NOTE | 2018-10-13 15:44 | Internal Med History&Physical ---
Date of Encounter: 10/13/18 Time of Encounter: 15:38 Internal Medicine - H&P: HPI Chief complaint: Chest pain Admitted From: Emergency Dept Plans for Post Hospital Care: Home History of present illness: Ms. Keyes is a 78 year old female with a known past medical history of hypertension, hyperlipidemia, paroxysmal a fib Not on AC due to no documented PAF recurrence and CAD s/p PCI to pLAD 05/2016 who had recent LHC done 04/26 showed mild 2V CAD now patient presented to ER with chest pain located at left chest wall region radiating to her neck and shoulder. Her chest pain 6 out of 10 in severity, felt sharp pain and associated with some lightheadedness. Patient stated she felt pain in her neck first then radiating down towards her left chest. Patient got her chest pain this morning at rest, which is relieved with aspirin after coming to ER. Patient was here in May 2018 for same chest pain, cardiology recommended to start taking Imdur, however patient is not actively taking her Imdur now. Past Med Surg Social Fam HX - Past Medical History Medical history: arthritis, atrial fibrillation, COPD, coronary artery disease, DVT, GERD, glaucoma, hyperlipidemia, hypertension, kidney stones, myocardial infarction, osteoporosis, renal disease Additional medical history: hiatal hernia, stage III kidney disease, lumbar O A/DDD, bladder prolapse, rectocele Psychiatric history: anxiety, depression, panic disorder - Past Surgical History Surgical History: angioplasty/stent, appendectomy, cataract, cholecystectomy, hysterectomy Additional surgical history: hand surgery, colonoscopy,bladder procedure, heart cath x3 - Social History Smoking Status: Never smoker Smokeless Tobacco Status: No Alcohol use: none Drug use: none - Family History Brother Hx Family Cardiac Disorders: Yes Sister Living Status: Still Living Hx Family Cardiac Disorders: Yes Hx Family Respiratory Disorders: Yes (COPD) Hx Family Cancer: No Hx Family GI Disorders: Yes (GERD) Hx Family Endocrine Disorder: Yes Hx Family Neuromuscular Disorders: No Hx Family Neurologic Disorders: No Hx Family HEENT Disorders: No Hx Family Autoimmune Disorders: No Mother Living Status: Hx Family Cardiac Disorders: No Hx Family Respiratory Disorders: No Hx Family Cancer: No Hx Family GI Disorders: No Hx Family Endocrine Disorder: No Hx Family Neuromuscular Disorders: No Hx Family Neurologic Disorders: No Hx Family HEENT Disorders: No Hx Family Autoimmune Disorders: No Father Living Status: Hx Family Cardiac Disorders: No Hx Family Respiratory Disorders: No Hx Family Cancer: No Hx Family GI Disorders: No Hx Family Endocrine Disorder: No Hx Family Neuromuscular Disorders: No Hx Family Neurologic Disorders: No Hx Family HEENT Disorders: No Hx Family Autoimmune Disorders: No Internal Medicine - H&P: Meds Loratadine [Claritin] 10 mg PO BID 01/04/16 [History] Fish Oil/Dha/Epa [Fish Oil 1,200 mg Fish Oil] 1,200 mg PO BID 01/05/16 [History] Ascorbic Acid [Vitamin C] 500 mg PO DAILY 05/02/16 [History] Losartan Potassium [Cozaar] 25 mg PO BID 05/14/16 [History] Fluticasone Propionate Nasal [Flonase] 1 spray NS BID PRN 10/23/16 [History] Pantoprazole Sodium [Protonix] 40 mg PO DAILY 10/23/16 [History] Ranitidine HCl [Heartburn Relief] 150 mg PO DAILY 10/23/16 [History] EPINEPHrine [Epipen] 0.3 mg IM ONCE PRN 05/13/17 [History] Vitamin B Complex [B Complex] 1 tab PO DAILY 06/01/17 [History] Albuterol Sulfate [Proventil Inhaler] 2 puff IH Q4H PRN 04/10/18 [History] Aspirin [Lo-Dose Aspirin EC] 81 mg PO DAILY 04/11/18 [History] Furosemide [Lasix] 20 mg PO DAILY #30 tablet 04/12/18 [Rx] Metoprolol [Lopressor] 50 mg PO BID 10/13/18 [History] Allergy/AdvReac Type Severity Reaction Status Date / Time atorvastatin Allergy See Verified 09/23/17 13:30 Comments ciprofloxacin Allergy Redness of Verified 09/23/17 13:30 Skin dextromethorphan Allergy Rash Verified 09/23/17 13:30 [From Capmist DM] doxycycline Allergy Redness of Verified 09/23/17 13:30 Skin guaifenesin [From Capmist DM] Allergy Rash Verified 09/23/17 13:30 Penicillins Allergy Redness of Verified 09/23/17 13:30 Skin pseudoephedrine Allergy Rash Verified 09/23/17 13:30 [From Capmist DM] Amoxicillin AdvReac Abdominal Verified 09/23/17 13:30 Pain Benzonatate AdvReac nausea/vomi Verified 09/23/17 13:30 [From Tessalon Perles] ting cetirizine AdvReac Insomnia Verified 09/23/17 13:30 hydrocodone [From Vicodin] AdvReac nausea/vomi Verified 09/23/17 13:30 ting meloxicam AdvReac Muscle Pain Verified 09/23/17 13:30 mometasone furoate AdvReac Nose Bleed Verified 09/23/17 13:30 [From Nasonex] nitrofurantoin AdvReac See Verified 09/23/17 13:30 Comments oxycodone [From Percocet] AdvReac nausea/vomi Verified 09/23/17 13:30 ting pravastatin AdvReac Muscle Pain Verified 09/23/17 13:30 sulfamethoxazole AdvReac Weakness Verified 09/23/17 13:30 [From Bactrim] trimethoprim [From Bactrim] AdvReac Weakness Verified 09/23/17 13:30 All Systems PM: A 10-system review of systems was performed and is negative for pertinent findings except as documented above in the HPI. Review of systems: All the systems are reviewed everything is benign except the systems and symptoms I mentioned in the history of present illness - Constitutional Vitals: Temp Pulse Resp BP Pulse Ox 97.7 F 56 16 120/72 98 10/13/18 11:05 10/13/18 15:00 10/13/18 15:00 10/13/18 15:00 10/13/18 15:00 General appearance: Present: cooperative, A&O X 3, no acute distress, answers questions appropriately Exam: a - Head Head exam: Present: atraumatic, normal inspection - Neck Neck exam general surgery: Present: supple. Absent: tenderness - Respiratory Respiratory exam: Present: decreased breath sounds. Absent: rales, respiratory distress, rhonchi, wheezes - Cardiovascular Cardiovascular exam: Present: RRR, +S1, +S2. Absent: tachycardia - GI/Abdominal GI/Abdominal exam: Present: normal bowel sounds, soft. Absent: rebound, rigid, tenderness - Extremities Exam Extremities exam: Present: normal inspection. Absent: calf tenderness, tenderness - Back Exam Back exam: Absent: CVA tenderness (L), CVA tenderness (R) - Neurological Exam Neurological exam: Present: alert, oriented X3 - Psychiatric Psychiatric exam: Present: normal affect, normal mood Internal Med - H&P Results - Labs CBC & Chem 7: 10/13/18 11:20 10/13/18 11:20 Labs: Short CBC 10/13/18 Range/Units 11:20 WBC 5.7 (4.3-11.1) K/mcL Hgb 13.4 (11.5-15.4) g/dL Hct 38.8 (35.3-44.9) % Plt Count 160 (140-400) K/mcL Neutrophils # 3.5 (1.6-8.9) K/mcL BMP 10/13/18 11:20 Sodium 134 L Potassium 3.9 Chloride 97 L Carbon Dioxide 30 H BUN 15 Creatinine 0.82 Glucose 96 Calcium 9.9 Cardiac Enzymes 10/13/18 Range/Units 11:20 Troponin I < 0.03 (< 0.04) ng/mL Liver Function 10/13/18 Range/Units 11:20 Total Bilirubin 0.6 (0.3-1.0) mg/dL Direct Bilirubin 0.1 (0.0-0.2) mg/dL AST 18 (13-39) Units/L ALT 14 (7-52) Units/L Alkaline Phosphatase 62 (34-104) Units/L Albumin 4.4 (3.5-5.7) g/dL - Impressions ITS Impressions Chest X-Ray 10/13/18 10:59 IMPRESSION: No acute abnormality. D/ / Rell Woodward MD / Rell Woodward MD Interpreting Provider: Rell Woodward MD Abdomen/Pelvis CT 10/13/18 11:53 IMPRESSION: No gross acute intra-abdominal process. Diverticulosis, without lisa diverticulitis. Small hiatal hernia. D/ / Tavares Blanchard MD / Tavares Blanchard MD Interpreting Provider: Tavares Blanchard MD - Assessment and Plan (1) Chest pain Current Visit: Yes Status: Acute Assessment and plan: Will admit the pt into Tele for observation Will place pt on manager monitoring check serial troponin so far negative troponin EKG reviewed - NSR, no acute ischemic changes noticed Cont ASA and Nitro PRN for pain Will check FLP in AM Reviewed her [facility] report from 04/26 showed mild 2 V CAD Supposedly pt should be on Imdur, however I did not see that in her hoe medication list so started her on Imdur 60 mg now Keep her NPO after mid night if her CP persists, may need Stress vs [facility] Qualifiers: Qualified Code(s): R07.9 - Chest pain, unspecified (2) CAD (coronary artery disease) Current Visit: No Status: Acute Assessment and plan: resumed all home meds Qualifiers: Qualified Code(s): I25.118 - Atherosclerotic heart disease of [place] coronary artery with other forms of angina pectoris (3) Hypertension Current Visit: No Status: Acute Assessment and plan: stable BP with her current home meds Qualifiers: Qualified Code(s): I10 - Essential (primary) hypertension (4) COPD (chronic obstructive pulmonary disease) Current Visit: No Status: Chronic Assessment and plan: not in exacerbation Qualifiers: Qualified Code(s): J44.9 - Chronic obstructive pulmonary disease, unspecified (5) History of atrial fibrillation Current Visit: No Status: Chronic Assessment and plan: rate controlled with Metoprolol on ASA only for anti coag since pt never had recurrence of Afib - Time Spent With Patient Total time spent is greater than 50% in coordination of care (as documented) at patient's floor/unit and/or counseling patient:
[2018-10-13] MEDS: Loratadine 10 MG TABLET PO SCH (20:26)
--- NOTE | 2018-10-14 03:32 | Electrocardiograph Report ---
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
[2018-10-14 06:34] LABS: BUN/Creatinine Ratio 17 (6-26); Blood Urea Nitrogen 16 mg/dL (8-23); Calcium 9.4 mg/dL (8.6-10.3); Carbon Dioxide 29 mEq/L (23-29); Chloride 96 mEq/L (98-107); Chol/HDL Ratio 3.6 (0-4.9); Cholesterol 201 mg/dL (< 200); Glucose 101 mg/dL (70-105); HDL Cholesterol 56 mg/dL (40-59); LDL Cholesterol,Calculated 121 mg/dL (0-99); Magnesium 2.2 mg/dL (1.6-2.6); Osmolality,Calculated 281 (280-300); Potassium 4.1 mEq/L (3.5-5.1); Sodium 135 mEq/L (136-145); Triglycerides 121 mg/dL (< 150); eGFR For African Americans > 60 (> 60); eGFR For Non-African Americans 59 (> 60)
[2018-10-14] MEDS ORDERED: Furosemide 20 MG TABLET PO SCH (09:00)
[2018-10-14] MEDS ORDERED: Ascorbic Acid 500 MG TABLET PO SCH (09:00)
[2018-10-14] MEDS ORDERED: Famotidine 20 MG TABLET PO SCH (09:00)
[2018-10-14] MEDS ORDERED: Aspirin Enteric Coated 81 MG Tablet PO SCH (09:00)
[2018-10-14] MEDS ORDERED: Vitamin B Complex/Vit C/Vit E 1 EACH TABLET PO SCH (09:00)
[2018-10-14] MEDS ORDERED: Isosorbide MONOnitrate (24 HR) 30 MG TAB.ER.24H PO SCH (10:00)
[2018-10-14] MEDS: Loratadine 10 MG TABLET PO SCH (10:02)
--- NOTE | 2018-10-14 11:06 | Discharge Summary ---
- NOTES TO OUTPATIENT PROVIDER Notes to Outpatient Provider: f/u with PCP in one week. f/u with Cardiology in 1-2 weeks. medication changes : Cut down on Metoprolol to 25mg BID. Added new medication Imdur 30mg PO Daily. Date of Encounter: 10/14/18 Time of Encounter: 10:57 - Discharge Diagnosis (1) Chest pain Priority: Primary Status: Acute Qualifiers: Chest pain type: unspecified Qualified Code(s): R07.9 - Chest pain, unspecified (2) CAD (coronary artery disease) Priority: Secondary Status: Chronic Qualifiers: Coronary Disease-Associated Artery/Lesion type: [place] artery [place] vs. transplanted heart: [place] heart Associated angina: with stable angina Qualified Code(s): I25.118 - Atherosclerotic heart disease of [place] coronary artery with other forms of angina pectoris (3) Hypertension Priority: Secondary Status: Acute Qualifiers: Hypertension type: essential hypertension Qualified Code(s): I10 - Essential (primary) hypertension (4) COPD (chronic obstructive pulmonary disease) Priority: Secondary Status: Chronic Qualifiers: Qualified Code(s): J44.9 - Chronic obstructive pulmonary disease, unspecified (5) History of atrial fibrillation Priority: Secondary Status: Chronic Hospital course: Ms. Keyes is a 78 year old female with a known past medical history of hypertension, hyperlipidemia, hiatal hernia, GERD, paroxysmal a fib Not on AC due to no documented PAF recurrence and CAD s/p PCI to LAD 05/2016 who had recent LHC done 04/26 showed mild 2V CAD now patient presented to ER with chest pain located at left chest wall region radiating to her neck and shoulder. Her chest pain 6 out of 10 in severity, felt sharp pain and associated with some lightheadedness. Patient stated she felt pain in her neck first then radiating down towards her left chest. Patient got her chest pain this morning at rest, which is relieved with aspirin after coming to ER. Patient was here in May 2018 for same chest pain, cardiology recommended to take Imdur, however patient is not actively taking her Imdur now. She was admitted in the hospital and placed on monitor worker. Her serial troponin came back as negative. Her EKG showed sinus rodney with HR @ 55, No acute ischemic changes noticed. She denied anymore chest pain. I did start her on Imdur 30mg Daily. Also cut down on her Metoprolol to 25mg ID since her HR in mid 50's. Patient stated she has hiatal hernia which is causing some epigastric pain on and off. So recommend to continue her home PPI + Zantac. Will d/c her home in stable condition today. - Time Spent with Patient Total time spent providing and/or coordinating discharge services: - Discharge Medications Prescriptions: New Isosorbide MONOnitrate (24 HR) [Imdur] 30 mg PO DAILY #30 tab.er.24h Continued Loratadine [Claritin] 10 mg PO BID Fish Oil/Dha/Epa [Fish Oil 1,200 mg Fish Oil] 1,200 mg PO BID Ascorbic Acid [Vitamin C] 500 mg PO DAILY Losartan Potassium [Cozaar] 25 mg PO BID Fluticasone Propionate Nasal [Flonase] 1 spray NS BID PRN PRN Reason: ALLERGIES Vitamin B Complex [B Complex] 1 tab PO DAILY Albuterol Sulfate [Proventil Inhaler] 2 puff IH Q4H PRN PRN Reason: Shortness Of Breath Aspirin [Lo-Dose Aspirin EC] 81 mg PO DAILY Furosemide [Lasix] 20 mg PO DAILY #30 tablet Ranitidine HCl [Heartburn Relief] 150 mg PO DAILY Pantoprazole Sodium [Protonix] 40 mg PO DAILY EPINEPHrine [Epipen] 0.3 mg IM ONCE PRN PRN Reason: Anaphylaxis Changed Metoprolol [Lopressor] 25 mg PO BID #60 tablet Home Medications: Loratadine [Claritin] 10 mg PO BID 01/04/16 [History] Fish Oil/Dha/Epa [Fish Oil 1,200 mg Fish Oil] 1,200 mg PO BID 01/05/16 [History] Ascorbic Acid [Vitamin C] 500 mg PO DAILY 05/02/16 [History] Losartan Potassium [Cozaar] 25 mg PO BID 05/14/16 [History] Fluticasone Propionate Nasal [Flonase] 1 spray NS BID PRN 10/23/16 [History] Pantoprazole Sodium [Protonix] 40 mg PO DAILY 10/23/16 [History] Ranitidine HCl [Heartburn Relief] 150 mg PO DAILY 10/23/16 [History] EPINEPHrine [Epipen] 0.3 mg IM ONCE PRN 05/13/17 [History] Vitamin B Complex [B Complex] 1 tab PO DAILY 06/01/17 [History] Albuterol Sulfate [Proventil Inhaler] 2 puff IH Q4H PRN 04/10/18 [History] Aspirin [Lo-Dose Aspirin EC] 81 mg PO DAILY 04/11/18 [History] Furosemide [Lasix] 20 mg PO DAILY #30 tablet 04/12/18 [Rx] Isosorbide MONOnitrate (24 HR) [Imdur] 30 mg PO DAILY #30 tab.er.24h 10/14/18 [Rx] Metoprolol [Lopressor] 25 mg PO BID #60 tablet 10/14/18 [Rx] Allergies/Adverse Reactions: Allergy/AdvReac Type Severity Reaction Status Date / Time atorvastatin Allergy See Verified 09/23/17 13:30 Comments ciprofloxacin Allergy Redness of Verified 09/23/17 13:30 Skin dextromethorphan Allergy Rash Verified 09/23/17 13:30 [From Capmist DM] doxycycline Allergy Redness of Verified 09/23/17 13:30 Skin guaifenesin [From Capmist DM] Allergy Rash Verified 09/23/17 13:30 Penicillins Allergy Redness of Verified 09/23/17 13:30 Skin pseudoephedrine Allergy Rash Verified 09/23/17 13:30 [From Capmist DM] Amoxicillin AdvReac Abdominal Verified 09/23/17 13:30 Pain Benzonatate AdvReac nausea/vomi Verified 09/23/17 13:30 [From Tessalon [place]kit[place]] ting cetirizine AdvReac Insomnia Verified 09/23/17 13:30 hydrocodone [From Vicodin] AdvReac nausea/vomi Verified 09/23/17 13:30 ting meloxicam AdvReac Muscle Pain Verified 09/23/17 13:30 mometasone furoate AdvReac Nose Bleed Verified 09/23/17 13:30 [From Nasonex] nitrofurantoin AdvReac See Verified 09/23/17 13:30 Comments oxycodone [From Percocet] AdvReac nausea/vomi Verified 09/23/17 13:30 ting pravastatin AdvReac Muscle Pain Verified 09/23/17 13:30 sulfamethoxazole AdvReac Weakness Verified 09/23/17 13:30 [From Bactrim] trimethoprim [From Bactrim] AdvReac Weakness Verified 09/23/17 13:30 Date of admission: 10/13/18 14:48 Primary care physician: Roopa Lambert CNP - Constitutional Vitals: Temp Pulse Resp BP Pulse Ox 97.9 F 50 16 132/71 97 10/14/18 07:11 10/14/18 07:11 10/14/18 07:11 10/14/18 07:11 10/14/18 07:11 General appearance: Present: cooperative, A&O X 3, no acute distress, answers questions appropriately Exam: Gen: Alert, awake, Oriented to time,place and person Chest: Diminished breath sounds B/L, No wheezing, No crackles, No rales Heart: S1S2+ rodney, No murmurs Abd: Soft, NT, BS +, No organomegaly Ext: No edema, pulses are palpable, No calf tenderness Neuro : No acute focal neuro deficits noticed Skin: No rash. - Patient Status Disposition: Home, Self-Care Condition: Good Overall status at discharge: patient is back to baseline - Discharge Instructions Follow Up With: Roopa Lambert CNP [Primary Care Provider] - (Appointment has been requested.) Huan Huerta MD [Non-Partnered Physician] - - Diet and Activity Activity: increase activity as tolerated Diet: low salt diet
[2018-10-14 11:30] VITALS: BP 123/48
--- NOTE | 2018-10-14 13:15 | Electrocardiograph Report ---
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
== END 2018-10-14 13:21 | disposition home or self-care (01) ==
LOC: 3BNU 10:54 → EMEROOARM 10:54 → 3BNU 15:45
PROVIDERS: ADMIT Internal Medicine; ATTEND Internal Medicine

== ENCOUNTER 2019-03-09 17:00 | Inpatient (IN) ==
[2019-03-09] MEDS ORDERED: Aspirin 81 MG TAB.CHEW PO ONE (17:25)
[2019-03-09] MEDS: Nitroglycerin 0.4 MG TAB.SUBL SL PRN ×3 (17:44→17:56)
[2019-03-09 18:02] LABS: Bilirubin,Urine Negative (Negative); Blood,Urine Large (Negative); Clarity,Urine Cloudy (Clear); Color,Urine Yellow (Yellow); Glucose,Urine (UA) Normal (Normal); Ketones,Urine Negative (Negative); Leukocyte Esterase,Urine Large (Negative); Nitrite,Urine Positive (Negative); PH,Urine 6.5 pH Units (5.0-8.0); Protein,Urine Trace mg/dL (Neg-Trace); Specific Gravity,Urine 1.021 (1.010-1.025); Urobilinogen,Urine Normal (Normal)
[2019-03-09 18:04] LABS: Bacteria,Urine Many per hpf (None-Few); Hyaline Casts,Urine None Seen per lpf (None-Few); RBC,Urine 50-100 per hpf (0-3); Squamous Epithelial Cell,Urine Few per lpf (None-Few); WBC,Urine TNTC per hpf (0-3)
[2019-03-09 18:20] LABS: Basophils % 0.4 %; Eosinophils # 0.1 K/mcL (0.0-0.6); Eosinophils % 1.8 %; Hematocrit 33.4 % (35.3-44.9); Hemoglobin 11.8 g/dL (11.5-15.4); Immature Granulocytes % 0.4 % (0-4); Lymphocytes # 1.6 K/mcL (0.6-4.6); Lymphocytes % 34.9 %; Mean Corpuscular HGB Conc 35.3 g/dL (31.6-35.5); Mean Corpuscular Volume 87.7 fL (83.0-100.0); Mean Platelet Volume 8.9 fL (9.4-12.4); Monocytes # 0.4 K/mcL (0.0-1.3); Monocytes % 7.9 %; Neutrophils # 2.5 K/mcL (1.6-8.9); Platelet Count 161 K/mcL (140-400); Red Blood Count 3.81 M/mcL (3.82-4.97); Red Cell Distribution Width 12.4 % (11.5-14.5); Segmented Neutrophils % 54.6 %; White Blood Count 4.5 K/mcL (4.3-11.1)
[2019-03-09] MEDS ORDERED: cefTRIAXone 1,000 MG in 0.9 % Sodium Chloride Mini Bag 100 ML IVPB ONE (18:22)
[2019-03-09 18:23] LABS: INR 0.9; Prothrombin Time 10.5 Seconds (9.4-12.1)
[2019-03-09 18:43] LABS: Troponin I < 0.03 ng/mL (< 0.04)
[2019-03-09 18:53] LABS: BUN/Creatinine Ratio 22 (6-26); Blood Urea Nitrogen 15 mg/dL (8-23); Calcium 9.2 mg/dL (8.6-10.3); Carbon Dioxide 25 mEq/L (23-29); Chloride 105 mEq/L (98-107); Glucose 104 mg/dL (70-105); Osmolality,Calculated 287 (280-300); Potassium 4.1 mEq/L (3.5-5.1); Sodium 138 mEq/L (136-145); eGFR For African Americans > 60 (> 60); eGFR For Non-African Americans > 60 (> 60)
[2019-03-09] MEDS ORDERED: Naloxone 0.4 MG/ML INJ IVP PRN (19:31)
[2019-03-10 00:40] LABS: BUN/Creatinine Ratio 19 (6-26); Blood Urea Nitrogen 13 mg/dL (8-23); Calcium 8.7 mg/dL (8.6-10.3); Carbon Dioxide 27 mEq/L (23-29); Chloride 109 mEq/L (98-107); Glucose 116 mg/dL (70-105); Osmolality,Calculated 287 (280-300); Potassium 3.6 mEq/L (3.5-5.1); Sodium 138 mEq/L (136-145); eGFR For African Americans > 60 (> 60); eGFR For Non-African Americans > 60 (> 60)
[2019-03-10 01:02] LABS: Hematocrit 30.9 % (35.3-44.9); Hemoglobin 10.7 g/dL (11.5-15.4); Mean Corpuscular HGB Conc 34.6 g/dL (31.6-35.5); Mean Corpuscular Hemoglobin 30.4 pg (28.0-33.3); Mean Corpuscular Volume 87.8 fL (83.0-100.0); Mean Platelet Volume 9.1 fL (9.4-12.4); Platelet Count 129 K/mcL (140-400); Red Blood Count 3.52 M/mcL (3.82-4.97); Red Cell Distribution Width 12.5 % (11.5-14.5); White Blood Count 4.2 K/mcL (4.3-11.1)
[2019-03-10] MEDS: Furosemide 20 MG TABLET PO SCH (09:23)
[2019-03-10] MEDS: Nitroglycerin 0.4 MG TAB.SUBL SL PRN (09:24)
[2019-03-10] MEDS ORDERED: Fluticasone Propionate Nasal 50 MCG/SPRAY BOTTLE NS PRN (12:15)
[2019-03-10] MEDS ORDERED: cefTRIAXone 1,000 MG in Water for inj. (sterile) 20 ML IVP SCH (15:00)
[2019-03-10] MEDS: Sucralfate 1 GM TABLET PO SCH ×2 (15:09→20:32)
[2019-03-10] MEDS ORDERED: Latanoprost 2.5 ML BOTTLE BOTH EYES SCH (21:00)
[2019-03-10] MEDS: Artificial Tears SOLN 15 ML BOTTLE BOTH EYES SCH (21:49)
[2019-03-11 05:05] LABS: BUN/Creatinine Ratio 16 (6-26); Blood Urea Nitrogen 13 mg/dL (8-23); Calcium 9.6 mg/dL (8.6-10.3); Carbon Dioxide 29 mEq/L (23-29); Chloride 100 mEq/L (98-107); Glucose 96 mg/dL (70-105); Osmolality,Calculated 288 (280-300); Potassium 3.8 mEq/L (3.5-5.1); Sodium 139 mEq/L (136-145); eGFR For African Americans > 60 (> 60); eGFR For Non-African Americans > 60 (> 60)
[2019-03-11 05:08] LABS: Basophils % 0.9 %; Eosinophils # 0.1 K/mcL (0.0-0.6); Eosinophils % 2.8 %; Hematocrit 35.2 % (35.3-44.9); Hemoglobin 12.2 g/dL (11.5-15.4); Immature Granulocytes % 0.2 % (0-4); Lymphocytes # 1.8 K/mcL (0.6-4.6); Lymphocytes % 39.3 %; Mean Corpuscular HGB Conc 34.7 g/dL (31.6-35.5); Mean Corpuscular Hemoglobin 30.5 pg (28.0-33.3); Mean Platelet Volume 9.4 fL (9.4-12.4); Monocytes # 0.4 K/mcL (0.0-1.3); Monocytes % 9.2 %; Neutrophils # 2.2 K/mcL (1.6-8.9); Platelet Count 151 K/mcL (140-400); Red Cell Distribution Width 12.4 % (11.5-14.5); Segmented Neutrophils % 47.6 %; White Blood Count 4.6 K/mcL (4.3-11.1)
[2019-03-11 07:31] VITALS: BP 133/65
[2019-03-11] MEDS: Sucralfate 1 GM TABLET PO SCH ×2 (08:49→11:17)
[2019-03-11] MEDS: Furosemide 20 MG TABLET PO SCH (08:49)
[2019-03-11] MEDS: Artificial Tears SOLN 15 ML BOTTLE BOTH EYES SCH (08:53)
[2019-03-11] MEDS ORDERED: Vitamin B Complex/Vit C/Vit E 1 EACH TABLET PO SCH (09:00)
[2019-03-11] MEDS ORDERED: Ascorbic Acid 500 MG TABLET PO SCH (09:00)
[2019-03-11] MEDS ORDERED: Loratadine 10 MG TABLET PO SCH (09:00)
[2019-03-11] MEDS ORDERED: CRANBERRY 1000 MG PO SCH (09:00)
== END 2019-03-11 14:25 | disposition home or self-care (01) | DRG 303 ==
LOC: EMEROOARM 17:00 → 3BNU 17:00 → SUATTDRO 03-10 15:52
PROVIDERS: ADMIT Family Medicine; ATTEND Student in an Organized Health Care Education/Training Program